=== PATIENT | male | born 1970 | race Hispanic/Latino ===

== ENCOUNTER 2017-10-26 16:58 | Emergency (ER) | payer OTHER ==
[~2017-10-26 16:58] MED LIST: AEC81 PO; ATEN50TA PO; FERR324T4 PO; FURO20TA4 PO; GABA300S PO; HUM10VIA6 SQ; ISOS30TA6 PO; LISI-617 PO; NITR0.4T SL; PANT40TA25 PO; PRAV20TA4 PO; SERT50TA PO; TERA2CAP4 PO; VITA-73 PO
== END 2017-10-26 18:25 | disposition home or self-care (01) ==
LOC: EDH 16:58
DX: Z48.01 Encounter for change or removal of surgical wound dressing (principal); M79.674 Pain in right toe(s); E11.9 Type 2 diabetes mellitus without complications; E78.5 Hyperlipidemia, unspecified; I10 Essential (primary) hypertension; Z98.62 Peripheral vascular angioplasty status; Z89.421 Acquired absence of other right toe(s)
CPT/HCPCS: 99281

== ENCOUNTER 2017-12-15 18:09 | Emergency (ER) | payer OTHER ==
[2017-12-15 19:17] LABS: BASOPHILS % (AUTO) 0.8 % (0.0-5.0); EOSINOPHILS % (AUTO) 2.9 % (0.0-8.0); HEMATOCRIT 37.1 % (42-54); LYMPHOCYTES % (AUTO) 25.6 % (21.0-51.0); MEAN CORPUSCULAR HEMOGLOBIN 30.8 pg (27.0-33.0); MEAN CORPUSCULAR HGB CONC 36.1 g/dL (32.0-36.0); MEAN CORPUSCULAR VOLUME 85.3 fL (79-99); MONOCYTES % (AUTO) 9.2 % (3.0-13.0); NEUTROPHILS % (AUTO) 61.5 % (40.0-77.0); NUCLEATED RED BLOOD CELLS 0.1 % (0.0-0.19); PLATELET COUNT (AUTO) 167 K/uL (130-400); RED BLOOD CELL COUNT(AUTO) 4.36 MIL/uL (4.50-6.20); RED CELL DISTRIBUTION WIDTH 14.6 % (11.0-15.5)
[2017-12-15 19:32] LABS: CARBON DIOXIDE 31 mmol/L (21-32); CHLORIDE 97 mmol/L (101-111); GLOMERULAR FILTR. RATE CALC 84 mL/min (>60); POTASSIUM 4.2 mmol/L (3.5-5.1); SODIUM SERUM 135 mmol/L (136-145); UREA NITROGEN, BLOOD 18 mg/dL (7-18)
[2017-12-15 19:34] LABS: CRP QUANTITATIVE < 2.00 mg/L (0.00-9.0); GLUCOSE,RANDOM 445 mg/dL (70-105)
[2017-12-15] MEDS ORDERED: SODIUM CHLORIDE 0.9% 1000ML 1,000 ML IV ONE (19:45)
[2017-12-15 20:25] LABS: ERYTHROCYTE SEDIMENTATION RATE 24 MM/HR (0-15)
== END 2017-12-15 20:55 | disposition home or self-care (01) ==
LOC: EDH 18:09
DX: E11.622 Type 2 diabetes mellitus with other skin ulcer (principal); L97.519 Non-pressure chronic ulcer of other part of right foot with unspecified severity; E78.5 Hyperlipidemia, unspecified; I10 Essential (primary) hypertension; F32.9 Major depressive disorder, single episode, unspecified; Z98.890 Other specified postprocedural states
CPT/HCPCS: 36415; 73630; 80048; 83605; 85025; 85651; 86141; 96360; 99285; J7030

== ENCOUNTER 2018-11-17 10:29 | Inpatient (IN) | payer OTHER ==
[~2018-11-17] VITALS: Ht 172.7 cm; Wt 118.5 kg
[2018-11-17] MEDS ORDERED: SODIUM CHLORIDE 0.9% 1000ML 1,000 ML IV ONE (11:14)
[2018-11-17 11:29] LABS: BASOPHILS % (AUTO) 0.7 % (0.0-5.0); HEMATOCRIT 39.6 % (42-54); LYMPHOCYTES % (AUTO) 20.5 % (21.0-51.0); MEAN CORPUSCULAR HEMOGLOBIN 30.9 pg (27.0-33.0); MEAN CORPUSCULAR HGB CONC 35.2 g/dL (32.0-36.0); MEAN CORPUSCULAR VOLUME 87.7 fL (79-99); MONOCYTES % (AUTO) 9.6 % (3.0-13.0); NEUTROPHILS % (AUTO) 67.2 % (40.0-77.0); PLATELET COUNT (AUTO) 141 K/uL (130-400); RED BLOOD CELL COUNT(AUTO) 4.51 MIL/uL (4.50-6.20); RED CELL DISTRIBUTION WIDTH 14.4 % (11.0-15.5); WHITE BLOOD COUNT (AUTO) 5.8 K/uL (4.8-10.8)
[2018-11-17 11:43] LABS: INR 0.89 (0.85-1.15); PARTIAL THROMBOPLASTIN TIME 26.1 SEC (26.3-35.5); PROTHROMBIN TIME 9.4 SEC (9.6-11.6)
[2018-11-17 11:47] LABS: ALBUMIN 3.5 g/dL (3.5-5.0); BILIRUBIN,TOTAL 0.4 mg/dL (0.2-1.0); CREATININE 0.9 mg/dL (0.5-1.5); POTASSIUM 4.1 mmol/L (3.5-5.1); TOTAL PROTEIN, SERUM 7.2 g/dL (6.0-8.3)
[2018-11-17 11:50] LABS: APPEARANCE,URINE Clear (CLEAR); BILIRUBIN,URINE Negative (NEGATIVE); COLOR,URINE Yellow (YELLOW); GLUCOSE, URINE (UA) >=1000 mg/dL (NEGATIVE); KETONES,URINE Trace mg/dL (NEGATIVE); LEUKOCYTE ESTERASE ,URINE Negative (NEGATIVE); NITRATE,URINE Negative (NEGATIVE); OCCULT BLOOD,URINE Negative (NEGATIVE); PROTEIN,URINE Trace (NEGATIVE); UROBILINOGEN,URINE 0.2 mg/dL (0.2-1.0)
[2018-11-17 11:57] LABS: AMPHET/METH SCREEN,URINE NEGATIVE (NEGATIVE); BARBITURATE SCREEN, URINE NEGATIVE (NEGATIVE); BENZODIAZEPINES SCREEN,URINE NEGATIVE (NEGATIVE); CANNABINOID SCREEN,URINE NEGATIVE (NEGATIVE); COCAINE SCREEN,URINE NEGATIVE (NEGATIVE); OPIATE SCREEN,URINE NEGATIVE (NEGATIVE); PHENCYCLIDINE SCREEN,URINE NEGATIVE (NEGATIVE)
[2018-11-17 12:04] LABS: BACTERIA,URINE None Seen /HPF (None Seen); RBC,URINE None Seen /HPF (0-1); SQUAMOUS EPITHELIAL CELL,UR Rare /HPF (0-2); WBC,URINE None Seen /HPF (0-1)
[2018-11-17] MEDS ORDERED: ASPIRIN 325 MG TABLET ONE (12:07)
[2018-11-17] MEDS ORDERED: INSULIN HUMULIN R 100 UNIT/ML 3ML ONE (12:08)
[2018-11-17] MEDS ORDERED: GLUCAGON 1MG KIT 1 MG ML IM PRN (13:15)
[2018-11-17] MEDS ORDERED: DEXTROSE 50%-WATER 50 ML DISP.SYRIN IV PRN (13:15)
[2018-11-17] MEDS ORDERED: IOHEXOL-350 75 ML VIAL IV ONE (13:47)
[2018-11-17 14:29] VITALS: BP 143/95
--- NOTE | 2018-11-17 14:30 | NUR ---
ADMISSION RECEIVED PT FROM ER, A&OX3, CALM COOPERATIVE AND DOES NOT APPEAR TO BE IN ANY DISTRESS NOR ANY NEURO DEFICITS PRESENT. PT DENIES PAIN, SOB, NAUSEA. PT IS AMBULATORY, GAIT STEADY AND STRONG WITH STAND BY ASSIST. PT IS ABLE TO TOLERATE FOOD AND FLUIDS WITH NO THROAT CLEARING OR COUGH. CASHIER RECEPTIONIST STRENGTH AND ROM TO ALL EXTREMITIES INTACT. CALL LIGHT WITHIN REACH.
[2018-11-17] MEDS ORDERED: HUM10VIA6 SQ ×2 (14:40)
[2018-11-17] MEDS ORDERED: HYDR12.54 PO (14:40)
[2018-11-17] MEDS ORDERED: CLOP75TA32 PO (14:40)
[2018-11-17] MEDS ORDERED: ZINC50TA64 PO (14:40)
[2018-11-17] MEDS ORDERED: METF-446 PO (14:40)
[2018-11-17] MEDS ORDERED: PREG75 PO (14:40)
[2018-11-17 16:00] VITALS: BP 132/89
[2018-11-17] MEDS: INSULIN R PO SS1 SQ SCH ×2 (16:16→21:54)
--- NOTE | 2018-11-17 16:45 | NUR ---
RECEIVED REPORT FROM CELESTE OSUNA, AND RECEIVED PATIENT IN RM 221; NO COMPLAINTS FROM PATIENT AT THIS TIME; AAOX4, ABLE TO MOVE ALL EXTREMITIES, LAYING COMFORTABLY IN BED AT THIS TIME
[2018-11-17 19:00] VITALS: BP 133/89
[2018-11-17] MEDS: FAMOTIDINE/PF 20 MG/2 ML VIAL IV SCH (20:22)
[2018-11-17 23:00] VITALS: BP 135/84
[2018-11-18] VITALS (7 sets, daily range): BP systolic 112–149; BP diastolic 77–100
[2018-11-18 04:06] LABS: HEMATOCRIT 36.4 % (42-54); MEAN CORPUSCULAR HEMOGLOBIN 30.7 pg (27.0-33.0); MEAN CORPUSCULAR HGB CONC 35.3 g/dL (32.0-36.0); MEAN CORPUSCULAR VOLUME 87.1 fL (79-99); PLATELET COUNT (AUTO) 159 K/uL (130-400); RED BLOOD CELL COUNT(AUTO) 4.18 MIL/uL (4.50-6.20); RED CELL DISTRIBUTION WIDTH 14.7 % (11.0-15.5); WHITE BLOOD COUNT (AUTO) 5.8 K/uL (4.8-10.8)
[2018-11-18 04:29] LABS: BAND NEUTROPHILS % (MANUAL) 1 % (0-2); EOSINOPHILS % (MANUAL) 4 % (1-6); LYMPHOCYTES % (MANUAL) 46 % (22-44); MONOCYTES % (MANUAL) 5 % (2-9); SEGMENTED NEUTROPHILS % 44 % (40-70)
[2018-11-18 04:30] LABS: CREATININE 0.7 mg/dL (0.5-1.5); MAGNESIUM 1.7 mg/dL (1.80-2.40); MAN.DIFF COMMENT-IMPRESSION MANUAL DIFFERENTIAL; POTASSIUM 3.5 mmol/L (3.5-5.1); THYROID STIMULATING HORMONE 3.44 uIU/mL (0.36-3.74)
[2018-11-18 04:31] LABS: PLATELET MORPHOLOGY COMMENT ADEQUATE
[2018-11-18] MEDS: INSULIN R PO SS1 SQ SCH ×4 (06:15→21:48)
[2018-11-18] MEDS: ASPIRIN 81MG TAB.CHEW PO SCH (09:25)
[2018-11-18] MEDS: FAMOTIDINE/PF 20 MG/2 ML VIAL IV SCH ×2 (09:26→21:19)
[2018-11-18] MEDS: ENOXAPARIN SODIUM 40 MG/0.4 ML SYRINGE SQ SCH (09:26)
[2018-11-18] MEDS ORDERED: DIAZEPAM 5 MG TABLET PO SCH (12:15)
--- NOTE | 2018-11-18 13:51 | NUR ---
DC PLAN PATIENT LIVES WITH SISTERS. PATIENT INDEPENDENT ABLE TO PERFORM ADL'S. PATIENT HAS NO SERVICES OR DME'S. FEELS SAFE TO RETURN HOME. Addendum: 11/18/18 at 1354 by MIGUE DAY RN CM Amended: Links added.
[2018-11-18] MEDS ORDERED: NITROGLYCERIN 0.4 MG SL TAB SL PRN (15:30)
[2018-11-18] MEDS: METFORMIN HCL 500 MG TABLET PO SCH (17:22)
[2018-11-18] MEDS ORDERED: ATORVASTATIN CALCIUM 10 MG TABLET PO SCH (21:00)
[2018-11-18] MEDS: INSULIN GLARGINE 100 UNITS/ML 10 ML VIAL SQ SCH (21:47)
[2018-11-19 03:46] VITALS: BP 133/88
[2018-11-19 04:15] LABS: HEMATOCRIT 35.9 % (42-54); MEAN CORPUSCULAR HEMOGLOBIN 30.8 pg (27.0-33.0); MEAN CORPUSCULAR HGB CONC 35.3 g/dL (32.0-36.0); MEAN CORPUSCULAR VOLUME 87.3 fL (79-99); NUCLEATED RED BLOOD CELLS 0.1 % (0.0-0.19); PLATELET COUNT (AUTO) 143 K/uL (130-400); RED BLOOD CELL COUNT(AUTO) 4.11 MIL/uL (4.50-6.20); RED CELL DISTRIBUTION WIDTH 14.1 % (11.0-15.5); WHITE BLOOD COUNT (AUTO) 4.7 K/uL (4.8-10.8)
[2018-11-19 04:25] LABS: CREATININE 0.7 mg/dL (0.5-1.5); MAGNESIUM 1.5 mg/dL (1.80-2.40); PHOSPHORUS 3.1 mg/dL (2.5-4.9); POTASSIUM 3.7 mmol/L (3.5-5.1)
[2018-11-19] MEDS ORDERED: MAGNESIUM 2GM PREMIX 50ML 50 ML IV SCH (06:15)
[2018-11-19 07:00] VITALS: BP 141/92
[2018-11-19] MEDS: INSULIN R PO SS1 SQ SCH ×4 (07:09→20:55)
[2018-11-19] MEDS: METFORMIN HCL 500 MG TABLET PO SCH ×2 (08:36→17:00)
[2018-11-19] MEDS: ASPIRIN 81 MG EC TAB PO SCH (09:00)
[2018-11-19] MEDS: ZINC AMINO ACID CHELATE PO SCH (09:00)
[2018-11-19] MEDS: PREGABALIN 75 MG CAPSULE PO SCH (09:46)
[2018-11-19] MEDS: FERROUS SULFATE 325 MG TABLET.DR PO SCH (09:46)
[2018-11-19] MEDS: ASPIRIN 81MG TAB.CHEW PO SCH (09:46)
[2018-11-19] MEDS: SERTRALINE HCL 50 MG TABLET PO SCH (09:46)
[2018-11-19] MEDS: FAMOTIDINE/PF 20 MG/2 ML VIAL IV SCH ×2 (09:46→20:46)
[2018-11-19] MEDS: ISOSORBIDE MONO 30MG TAB SR PO SCH (09:46)
[2018-11-19] MEDS: PANTOPRAZOLE SODIUM 40 MG TABLET.DR PO SCH (09:46)
[2018-11-19] MEDS: HYDROCHLOROTHIAZIDE 25 MG TABLET PO SCH (09:46)
[2018-11-19] MEDS: CLOPIDOGREL BISULFATE 75 MG TAB PO SCH (09:46)
[2018-11-19] MEDS: ENOXAPARIN SODIUM 40 MG/0.4 ML SYRINGE SQ SCH (09:47)
[2018-11-19 11:00] VITALS: BP 142/93
[2018-11-19 16:00] VITALS: BP 128/77
[2018-11-19] MEDS: GLIPIZIDE 5 MG TABLET PO SCH (17:06)
--- NOTE | 2018-11-19 17:09 | NUR ---
HOLD METFORMIN METFORMIN HELD DUE TO PATIENT HAVING CT WITH CONTRAST EARLIER.
[2018-11-19 20:00] VITALS: BP 116/79
[2018-11-19] MEDS: INSULIN GLARGINE 100 UNITS/ML 10 ML VIAL SQ SCH (20:52)
[2018-11-19] MEDS ORDERED: ATORVASTATIN CALCIUM 20 MG TABLET PO SCH (21:00)
[2018-11-19] MEDS ORDERED: ACETAMINOPHEN 325 MG TAB PO PRN (21:00)
[2018-11-20] VITALS: BP 136/92
--- NOTE | 2018-11-20 03:13 | NUR ---
NEURO STATUS Neuro status remains the same,no deficits noted.
[2018-11-20 04:00] VITALS: BP 123/86
[2018-11-20] MEDS: INSULIN R PO SS1 SQ SCH ×2 (06:17→13:03)
[2018-11-20] MEDS: GLIPIZIDE 5 MG TABLET PO SCH (06:35)
[2018-11-20] MEDS: ZINC AMINO ACID CHELATE PO SCH (07:45)
[2018-11-20] MEDS: CLOPIDOGREL BISULFATE 75 MG TAB PO SCH (07:58)
[2018-11-20] MEDS: FAMOTIDINE/PF 20 MG/2 ML VIAL IV SCH (07:58)
[2018-11-20] MEDS: ISOSORBIDE MONO 30MG TAB SR PO SCH (07:58)
[2018-11-20 07:59] VITALS: BP 134/90
[2018-11-20] MEDS: PANTOPRAZOLE SODIUM 40 MG TABLET.DR PO SCH (07:59)
[2018-11-20] MEDS: FERROUS SULFATE 325 MG TABLET.DR PO SCH (07:59)
[2018-11-20] MEDS: METFORMIN HCL 500 MG TABLET PO SCH (07:59)
[2018-11-20] MEDS: HYDROCHLOROTHIAZIDE 25 MG TABLET PO SCH (07:59)
[2018-11-20] MEDS: SERTRALINE HCL 50 MG TABLET PO SCH (07:59)
[2018-11-20] MEDS: PREGABALIN 75 MG CAPSULE PO SCH (07:59)
[2018-11-20] MEDS: ASPIRIN 81 MG EC TAB PO SCH (07:59)
[2018-11-20] MEDS: ENOXAPARIN SODIUM 40 MG/0.4 ML SYRINGE SQ SCH (08:00)
[2018-11-20 08:11] LABS: BASOPHILS % (AUTO) 0.7 % (0.0-5.0); EOSINOPHILS % (AUTO) 3.6 % (0.0-8.0); HEMATOCRIT 41.1 % (42-54); LYMPHOCYTES % (AUTO) 28.4 % (21.0-51.0); MEAN CORPUSCULAR HEMOGLOBIN 30.1 pg (27.0-33.0); MEAN CORPUSCULAR HGB CONC 33.8 g/dL (32.0-36.0); MONOCYTES % (AUTO) 8.5 % (3.0-13.0); NEUTROPHILS % (AUTO) 58.8 % (40.0-77.0); PLATELET COUNT (AUTO) 164 K/uL (130-400); RED BLOOD CELL COUNT(AUTO) 4.62 MIL/uL (4.50-6.20); RED CELL DISTRIBUTION WIDTH 14.5 % (11.0-15.5); WHITE BLOOD COUNT (AUTO) 5.3 K/uL (4.8-10.8)
[2018-11-20 08:17] LABS: CREATININE 0.7 mg/dL (0.5-1.5); POTASSIUM 4.1 mmol/L (3.5-5.1)
[2018-11-20 11:53] VITALS: BP 160/90
== END 2018-11-20 14:30 | disposition home or self-care (01) | DRG 65 ==
LOC: EDH 10:29 → EDHIP 10:30 → 2BH 14:15 → 2DH 16:32 → 3BH 11-19 15:54
PROVIDERS: ADMIT Family Medicine; ATTEND Family Medicine
DX: I63.9 Cerebral infarction, unspecified (principal); G81.94 Hemiplegia, unspecified affecting left nondominant side; G45.9 Transient cerebral ischemic attack, unspecified; E11.65 Type 2 diabetes mellitus with hyperglycemia; I25.10 Atherosclerotic heart disease of native coronary artery without angina pectoris; I10 Essential (primary) hypertension; E03.9 Hypothyroidism, unspecified; E78.2 Mixed hyperlipidemia; E83.42 Hypomagnesemia; F32.9 Major depressive disorder, single episode, unspecified; F40.240 Claustrophobia; M54.12 Radiculopathy, cervical region; Z86.73 Personal history of transient ischemic attack (TIA), and cerebral infarction without residual deficits; Z83.3 Family history of diabetes mellitus; Z82.49 Family history of ischemic heart disease and other diseases of the circulatory system; Z80.0 Family history of malignant neoplasm of digestive organs; Z89.421 Acquired absence of other right toe(s); E66.01 Morbid (severe) obesity due to excess calories; Z68.39 Body mass index [BMI] 39.0-39.9, adult
CPT/HCPCS: 36415; 70450; 70496; 70498; 71045; 72125; 80048; 80053; 80061; 80305; 81001; 82550; 82948; 83036; 83735; 84100; 84443; 84484; 85025; 85027; 85610; 85730; 93005; 93306; 99291; G0378; J1650; J1815; J3475; J3490; J7030; Q9967

== ENCOUNTER 2019-06-17 10:05 | Inpatient (IN) | payer SELFPAY ==
[~2019-06-17] VITALS: Ht 172.7 cm; Wt 110.1 kg
[~2019-06-17 10:05] MED LIST changes: -ATEN50TA PO; +CLOP75TA32 PO; -FURO20TA4 PO; -GABA300S PO; +HYDR12.54 PO; -LISI-617 PO; +METF-446 PO; +PREG75 PO; -TERA2CAP4 PO; -VITA-73 PO; +ZINC50TA64 PO
[2019-06-17 10:28] LABS: BASOPHILS % (AUTO) 0.6 % (0.0-5.0); EOSINOPHILS % (AUTO) 2.7 % (0.0-8.0); HEMATOCRIT 39.7 % (42-54); LYMPHOCYTES % (AUTO) 18.5 % (21.0-51.0); MEAN CORPUSCULAR HEMOGLOBIN 31.1 pg (27.0-33.0); MEAN CORPUSCULAR HGB CONC 34.2 g/dL (32.0-36.0); MEAN CORPUSCULAR VOLUME 90.9 fL (79-99); MONOCYTES % (AUTO) 8.3 % (3.0-13.0); NEUTROPHILS % (AUTO) 69.9 % (40.0-77.0); NUCLEATED RED BLOOD CELLS 0.1 % (0.0-0.19); PLATELET COUNT (AUTO) 146 K/uL (130-400); RED BLOOD CELL COUNT(AUTO) 4.36 MIL/uL (4.50-6.20); RED CELL DISTRIBUTION WIDTH 13.9 % (11.0-15.5); WHITE BLOOD COUNT (AUTO) 5.4 K/uL (4.8-10.8)
[2019-06-17 10:33] LABS: POTASSIUM 4.4 mmol/L (3.5-5.1)
[2019-06-17 10:34] LABS: ALBUMIN 3.4 g/dL (3.5-5.0); BILIRUBIN,TOTAL 0.4 mg/dL (0.2-1.0)
[2019-06-17 10:37] LABS: INR 0.91 (0.85-1.15); PARTIAL THROMBOPLASTIN TIME 25.6 SEC (26.3-35.5); PROTHROMBIN TIME 9.6 SEC (9.6-11.6)
[2019-06-17] MEDS ORDERED: ASPIRIN 325 MG TABLET ONE (10:39)
[2019-06-17] MEDS ORDERED: SODIUM CHLORIDE 0.9% 1000ML 1,000 ML IV ONE ×2 (10:58→13:36)
[2019-06-17] MEDS ORDERED: INSULIN HUMULIN R 100 UNIT/ML 3ML ONE (10:58)
[2019-06-17 11:14] LABS: B-TYPE NATRIURETIC PEPTIDE 52 pg/mL (0-100)
[2019-06-17] MEDS: SODIUM CHLORIDE 0.9% 1000ML 1,000 ML IV SCH (12:19)
[2019-06-17] MEDS ORDERED: ACETAMINOPHEN 325 MG TAB PO PRN (12:30)
[2019-06-17] MEDS ORDERED: MORPHINE SULFATE 2 MG/ML 1ML SYG IV PRN (12:30)
[2019-06-17] MEDS: NITROGLYCERIN 1GM/1 INCH PACKET TD SCH ×2 (12:30→20:06)
[2019-06-17] MEDS ORDERED: NITROGLYCERIN 0.4 MG SL TAB SL PRN (12:30)
[2019-06-17 13:04] LABS: HEMOGLOBIN A1C 11.7 % (4.0-6.0)
[2019-06-17 13:14] LABS: CREATINE KINASE, TOTAL 59 U/L (21-232); MYOGLOBIN 22 ng/mL (10-92); TROPONIN I < 0.04 ng/mL (0.00-0.06)
[2019-06-17] MEDS ORDERED: NITROGLYCERIN 1GM/1 INCH PACKET TD ONE (13:34)
[2019-06-17] MEDS ORDERED: ENOXAPARIN SODIUM 40 MG/0.4 ML SYRINGE SQ ONE (13:34)
[2019-06-17] MEDS ORDERED: METOPROLOL TARTRATE 25 MG TAB ONE (13:34)
--- NOTE | 2019-06-17 15:00 | NUR ---
ARRIVAL TO FLOOR PT IS AAOX4 DENIES CP DENIES SOB DENIES NV NO COMPLAINTS. ARRIVED WITH ORDERS. TELE PACK APPLIED TO PATIENT. CALL LIGHT WITHIN REACH.
[2019-06-17 15:04] VITALS: BP 139/78
[2019-06-17] MEDS ORDERED: GABA-531 PO (15:09)
[2019-06-17] MEDS ORDERED: IRON SLOW RELEASE PO (15:09)
[2019-06-17] MEDS ORDERED: ISOS30TA6 PO (15:09)
[2019-06-17] MEDS ORDERED: CHOL200013 PO (15:09)
[2019-06-17] MEDS ORDERED: SITA1TAB6 PO (15:09)
[2019-06-17] MEDS ORDERED: PRAV20TA4 PO (15:09)
[2019-06-17] MEDS ORDERED: TERA2CAP4 PO (15:09)
[2019-06-17] MEDS ORDERED: LEVO75TA10 PO (15:09)
[2019-06-17] MEDS ORDERED: ASPI-1197 PO (15:09)
[2019-06-17] MEDS ORDERED: CLOP75TA32 PO (15:09)
[2019-06-17] MEDS ORDERED: ZINC50TA71 PO (15:09)
[2019-06-17] MEDS ORDERED: NITR0.4T SL (15:09)
[2019-06-17] MEDS ORDERED: GLIM2TAB3 PO (15:09)
[2019-06-17] MEDS ORDERED: LISI-617 PO (15:09)
[2019-06-17] MEDS ORDERED: PANT40TA25 PO (15:09)
[2019-06-17] MEDS ORDERED: SERT50TA12 PO (15:09)
[2019-06-17] MEDS: INSULIN LISPRO 100 UNIT/ML 3ML SQ SCH (16:12)
[2019-06-17] MEDS: FAMOTIDINE/PF 20 MG/2 ML VIAL IV SCH (19:56)
[2019-06-17] MEDS: METOPROLOL TARTRATE 25 MG TAB PO SCH (19:56)
[2019-06-17] MEDS: ATORVASTATIN CALCIUM 40 MG TABLET PO SCH (19:56)
[2019-06-17] MEDS: ACETAMINOPHEN 325 MG TAB PO PRN (19:57)
[2019-06-17 20:03] VITALS: BP 167/108
[2019-06-17] MEDS: INSULIN GLARGINE 100 UNITS/ML 10 ML VIAL SQ SCH (20:05)
[2019-06-17 21:09] LABS: CREATINE KINASE, TOTAL 51 U/L (21-232); MYOGLOBIN 25 ng/mL (10-92); TROPONIN I < 0.04 ng/mL (0.00-0.06)
[2019-06-18] VITALS (7 sets, daily range): BP systolic 142–160; BP diastolic 61–101
[2019-06-18] MEDS: ACETAMINOPHEN 325 MG TAB PO PRN (00:58)
[2019-06-18] MEDS: SODIUM CHLORIDE 0.9% 1000ML 1,000 ML IV SCH ×2 (00:59→12:13)
[2019-06-18] MEDS: NITROGLYCERIN 1GM/1 INCH PACKET TD SCH ×2 (04:30→12:30)
[2019-06-18 04:55] LABS: CHOLESTEROL 173 mg/dL (<200); CREATINE KINASE, TOTAL 48 U/L (21-232); HDL CHOLESTEROL 48 mg/dL (29-71); LDL DIRECT 111 mg/dL (0-99); MYOGLOBIN 20 ng/mL (10-92); TRIGLYCERIDES 112 mg/dL (30-200); TROPONIN I < 0.04 ng/mL (0.00-0.06)
[2019-06-18] MEDS: INSULIN LISPRO 100 UNIT/ML 3ML SQ SCH ×4 (06:41→20:50)
--- NOTE | 2019-06-18 06:53 | NUR ---
Patient denies chest pain or sob Refused nitro paste.
[2019-06-18] MEDS: ASPIRIN 325 MG TABLET PO SCH (09:20)
[2019-06-18] MEDS: FAMOTIDINE/PF 20 MG/2 ML VIAL IV SCH ×2 (09:21→20:54)
[2019-06-18] MEDS: METOPROLOL TARTRATE 25 MG TAB PO SCH ×2 (09:21→20:51)
[2019-06-18] MEDS: ENOXAPARIN SODIUM 40 MG/0.4 ML SYRINGE SQ SCH (09:22)
--- NOTE | 2019-06-18 14:36 | NUR ---
DCP: HOME met with pt who is unemployed, applying for SSD, lives his sister Kaitlin Aparicio [phone]. Pt reports he drives, is independent, uses cane, no in home care services. Pt seen at [facility] for care and med assist. Denies dc needs, plan is home with family. CM to follow up and assist as needed Addendum: 06/18/19 at 1438 by TONYA ARTHUR Amended: Links added.
[2019-06-18] MEDS: METFORMIN HCL 500 MG TABLET PO SCH (16:58)
[2019-06-18] MEDS: GLIPIZIDE 5 MG TABLET PO SCH (16:58)
[2019-06-18] MEDS: LISINOPRIL 5 MG TABLET PO SCH (16:58)
--- NOTE | 2019-06-18 17:20 | NUR ---
REPORT TO CELESTE FLETCHER.
--- NOTE | 2019-06-18 17:45 | NUR ---
TRANSFERRED TO ROOM 410 WITH BELONGINGS VIA W/C; ACCOMPANIED BY Kareem MANLEY PCP.
[2019-06-18] MEDS: INSULIN GLARGINE 100 UNITS/ML 10 ML VIAL SQ SCH (20:49)
[2019-06-18] MEDS: ATORVASTATIN CALCIUM 40 MG TABLET PO SCH (20:53)
[2019-06-19 03:32] VITALS: BP 140/91
[2019-06-19] MEDS: INSULIN LISPRO 100 UNIT/ML 3ML SQ SCH ×4 (05:45→21:31)
[2019-06-19] MEDS: GLIPIZIDE 5 MG TABLET PO SCH ×2 (07:29→17:16)
[2019-06-19] MEDS: METFORMIN HCL 500 MG TABLET PO SCH ×3 (07:29→17:13)
[2019-06-19 08:00] VITALS: BP_SYST 145; BP_SYST 148; BP_DIAS 91; BP_DIAS 94
[2019-06-19] MEDS: LISINOPRIL 5 MG TABLET PO SCH (09:43)
[2019-06-19] MEDS: ENOXAPARIN SODIUM 40 MG/0.4 ML SYRINGE SQ SCH (09:43)
[2019-06-19] MEDS: METOPROLOL TARTRATE 25 MG TAB PO SCH ×2 (09:43→21:32)
[2019-06-19] MEDS: ASPIRIN 325 MG TABLET PO SCH (09:43)
[2019-06-19] MEDS: FAMOTIDINE/PF 20 MG/2 ML VIAL IV SCH ×2 (09:48→21:32)
[2019-06-19 11:54] VITALS: BP 147/93
[2019-06-19 16:00] VITALS: BP 145/86
--- NOTE | 2019-06-19 16:15 | NUR ---
RD NOTIFICATION PRIMARY DIAGNOSIS: CHEST PAIN R/O ACS, UNCONTROLLED DM. HX: DM, HTN, HYPERLIPIDEMIA, CAD, LIVER ABSCESS, GALL BLADDER INFECTION, THYROID DISORDER, DEPRESSION. BMI IS 36.9; CLASSIFIED OBESE. CURRENT DIET: 75GM CCD. PO INTAKE 50% PER PT. APPETITE IS STEADY PER PT. LBM: 06/19. MEDS: NITROSTAT, LOPRESSOR, ASPRIN, LOVENOX, PEPCID, LANTUS, LIPITOR, HUMALOG, GLUCTROL, PRINIVIL, GLUCOPHAGE. LABS: BG 220, A1C 11.7, EAG 289, ALB 3.4, LDL 111, HGB 13.6, HCT 39.7. PT HAS RECEIVED DIABETIC EDU IN THE PAST AND IS OPEN TO RECEIVING MORE INFOTMATION TODAY REGARDING HIS DIET. RD RECOMMENDS TO CONTINUE CURRENT DIET. ADD HEART HEALTHY TO DIET ORDER. RD PROVIDED DIABETES AND HEART HEALTHY NUTRITION AND DIET EDUCATION. PT WAS EAGER TO LEARN, ASKED QUESTIONS. RD ANSWERED AND PT VERBALIZED UNDERSTANDING. RD WILL CONTINUE TO MONITOR AND FOLLOW UP NEEDED. PLEASE NOTIFY RD IF ANY OTHER NUTRITIONAL CONCERNS ARISE. THANK YOU. Addendum: 06/19/19 at [address] RD Amended: Links added.
--- NOTE | 2019-06-19 16:17 | NUR ---
DIET EDUCATION RD PROVIDED DIABETES AND HEART HEALTHY NUTRITION AND DIET EDUCATION. PT WAS EAGER TO LEARN, ASKED QUESTIONS. RD ANSWERED AND PT VERBALIZED UNDERSTANDING. RD WILL CONTINUE TO MONITOR AND FOLLOW UP NEEDED. PLEASE NOTIFY RD IF ANY OTHER NUTRITIONAL CONCERNS ARISE. THANK YOU. Addendum: 06/19/19 at [address] RD Amended: Links added.
[2019-06-19 20:00] VITALS: BP 154/105
[2019-06-19] MEDS: INSULIN GLARGINE 100 UNITS/ML 10 ML VIAL SQ SCH (21:30)
[2019-06-19] MEDS: ATORVASTATIN CALCIUM 40 MG TABLET PO SCH (21:32)
[2019-06-19 23:39] VITALS: BP 130/80
[2019-06-20 04:00] VITALS: BP 123/77
[2019-06-20 04:42] LABS: HEMATOCRIT 37.1 % (42-54); MEAN CORPUSCULAR HEMOGLOBIN 31.3 pg (27.0-33.0); MEAN CORPUSCULAR HGB CONC 35.4 g/dL (32.0-36.0); MEAN CORPUSCULAR VOLUME 88.5 fL (79-99); NUCLEATED RED BLOOD CELLS 0.1 % (0.0-0.19); PLATELET COUNT (AUTO) 157 K/uL (130-400); RED BLOOD CELL COUNT(AUTO) 4.19 MIL/uL (4.50-6.20); RED CELL DISTRIBUTION WIDTH 13.8 % (11.0-15.5); WHITE BLOOD COUNT (AUTO) 5.2 K/uL (4.8-10.8)
[2019-06-20 05:06] LABS: CREATININE 0.7 mg/dL (0.5-1.5); POTASSIUM 3.8 mmol/L (3.5-5.1)
[2019-06-20 05:25] LABS: EOSINOPHILS % (MANUAL) 6 % (1-6); LYMPHOCYTES % (MANUAL) 36 % (22-44); MAN.DIFF COMMENT-IMPRESSION MANUAL DIFFERENTIAL; MONOCYTES % (MANUAL) 8 % (2-9); SEGMENTED NEUTROPHILS % 50 % (40-70)
[2019-06-20 05:26] LABS: PLATELET MORPHOLOGY COMMENT ADEQUATE
[2019-06-20] MEDS: INSULIN LISPRO 100 UNIT/ML 3ML SQ SCH (06:10)
[2019-06-20 08:00] VITALS: BP 132/88
[2019-06-20] MEDS: FAMOTIDINE/PF 20 MG/2 ML VIAL IV SCH (08:28)
[2019-06-20] MEDS: METFORMIN HCL 500 MG TABLET PO SCH (08:28)
[2019-06-20] MEDS: ENOXAPARIN SODIUM 40 MG/0.4 ML SYRINGE SQ SCH (08:28)
[2019-06-20] MEDS: ASPIRIN 325 MG TABLET PO SCH (08:28)
[2019-06-20] MEDS: GLIPIZIDE 5 MG TABLET PO SCH (08:29)
[2019-06-20] MEDS: METOPROLOL TARTRATE 25 MG TAB PO SCH (08:29)
[2019-06-20] MEDS: LISINOPRIL 5 MG TABLET PO SCH (08:29)
[2019-06-20] MEDS ORDERED: ASPI-1197 PO (10:05)
[2019-06-20] MEDS ORDERED: NITR0.4T SL (10:05)
[2019-06-20] MEDS ORDERED: LEVO75TA10 PO (10:05)
[2019-06-20] MEDS ORDERED: METF-444 PO (10:05)
[2019-06-20] MEDS ORDERED: LISI-617 PO (10:05)
[2019-06-20] MEDS ORDERED: GLIP10TA9 PO (10:05)
[2019-06-20] MEDS ORDERED: METO25 PO (10:05)
[2019-06-20] MEDS ORDERED: ATOR40TA69 PO (10:05)
[2019-06-20 11:53] VITALS: BP 142/86
== END 2019-06-20 13:30 | disposition home or self-care (01) | DRG 313 ==
LOC: EDH 10:05 → EDHIP 10:06 → 2AH 14:47 → 4BH 06-18 17:32
PROVIDERS: ADMIT Internal Medicine; ATTEND Internal Medicine
DX: R07.89 Other chest pain (principal); E11.9 Type 2 diabetes mellitus without complications; I25.10 Atherosclerotic heart disease of native coronary artery without angina pectoris; E78.5 Hyperlipidemia, unspecified; I10 Essential (primary) hypertension; F32.9 Major depressive disorder, single episode, unspecified; Z95.5 Presence of coronary angioplasty implant and graft; Z98.42 Cataract extraction status, left eye; Z98.41 Cataract extraction status, right eye; Z89.421 Acquired absence of other right toe(s); Z91.19 Patient's noncompliance with other medical treatment and regimen; Z91.11 Patient's noncompliance with dietary regimen; Z91.14 Patient's other noncompliance with medication regimen; Z83.3 Family history of diabetes mellitus; Z83.79 Family history of other diseases of the digestive system; Z82.49 Family history of ischemic heart disease and other diseases of the circulatory system
CPT/HCPCS: 36415; 71045; 80048; 80053; 80061; 82550; 82948; 83036; 83874; 83880; 84484; 85025; 85610; 85730; 93005; 93306; G0378; J1650; J1815; J3490; J7030

== ENCOUNTER 2019-11-27 20:53 | Emergency (ER) | payer SELFPAY ==
[~2019-11-27 20:53] MED LIST changes: -AEC81 PO; +ASPI-1197 PO; +ATOR40TA69 PO; +CHOL200013 PO; -CLOP75TA32 PO; -FERR324T4 PO; +GABA-531 PO; +GLIP10TA9 PO; -HUM10VIA6 SQ; -HYDR12.54 PO; -ISOS30TA6 PO; +LEVO75TA10 PO; +LISI-617 PO; +METF-444 PO; -METF-446 PO; +METO25 PO; -PANT40TA25 PO; -PRAV20TA4 PO; -PREG75 PO; -SERT50TA PO; +SERT50TA12 PO; -ZINC50TA64 PO
[2019-11-27] MEDS ORDERED: ASPIRIN 325 MG TABLET ONE (21:10)
[2019-11-27] MEDS ORDERED: DIAZEPAM 5 MG TABLET ONE (21:11)
[2019-11-27 21:21] LABS: BASOPHILS % (AUTO) 0.5 % (0.0-5.0); EOSINOPHILS % (AUTO) 2.3 % (0.0-8.0); HEMATOCRIT 38.1 % (42-54); MEAN CORPUSCULAR HEMOGLOBIN 29.9 pg (27.0-33.0); MEAN CORPUSCULAR HGB CONC 34.9 g/dL (32.0-36.0); MEAN CORPUSCULAR VOLUME 85.6 fL (79-99); PLATELET COUNT (AUTO) 149 K/uL (130-400); RED BLOOD CELL COUNT(AUTO) 4.45 MIL/uL (4.50-6.20); RED CELL DISTRIBUTION WIDTH 13.2 % (11.0-15.5); WHITE BLOOD COUNT (AUTO) 5.7 K/uL (4.8-10.8)
[2019-11-27 21:39] LABS: INR 0.87 (0.85-1.15); PARTIAL THROMBOPLASTIN TIME 25.9 SEC (26.3-35.5); PROTHROMBIN TIME 9.2 SEC (9.6-11.6)
[2019-11-27 21:40] LABS: ALBUMIN 3.2 g/dL (3.5-5.0); BILIRUBIN,TOTAL 0.4 mg/dL (0.2-1.0); CREATININE 0.8 mg/dL (0.5-1.5); POTASSIUM 3.7 mmol/L (3.5-5.1); TOTAL PROTEIN, SERUM 6.9 g/dL (6.0-8.3)
[2019-11-27] MEDS ORDERED: SODIUM CHLORIDE 0.9% 1000ML 1,000 ML IV ONE (22:37)
[2019-11-27] MEDS ORDERED: INSULIN HUMULIN R 100 UNIT/ML 3ML ONE (22:37)
== END 2019-11-27 23:17 | disposition home or self-care (01) ==
LOC: EDH 20:53
DX: R07.89 Other chest pain (principal); E11.65 Type 2 diabetes mellitus with hyperglycemia; R51 Headache; E78.5 Hyperlipidemia, unspecified; I10 Essential (primary) hypertension; Z98.890 Other specified postprocedural states
CPT/HCPCS: 36415; 70450; 71045; 80053; 82550; 83880; 84484; 85025; 85610; 85730; 93005; 96361; 96374; 99285; J1815; J7030

== ENCOUNTER → 2020-06-01 | Outpatient (CLI) | payer OTHER | END | disposition home or self-care (01) | LOC: OIH 11:03 | PROVIDERS: ATTEND Family Medicine | DX: R94.6 Abnormal results of thyroid function studies (principal); E11.22 Type 2 diabetes mellitus with diabetic chronic kidney disease; M47.814 Spondylosis without myelopathy or radiculopathy, thoracic region; Z95.5 Presence of coronary angioplasty implant and graft | CPT/HCPCS: 71046 ==

== ENCOUNTER 2020-09-04 08:10 | Inpatient (IN) | payer OTHER ==
[~2020-09-04] VITALS: Ht 172.7 cm; Wt 105.1 kg
[2020-09-04] MEDS ORDERED: ASPIRIN 325 MG TABLET ONE (08:23)
[2020-09-04] MEDS ORDERED: NITROGLYCERIN 1GM/1 INCH PACKET TD ONE (08:33)
[2020-09-04 08:37] LABS: BASOPHILS % (AUTO) 0.8 % (0.0-5.0); EOSINOPHILS % (AUTO) 2.2 % (0.0-8.0); HEMATOCRIT 38.7 % (42-54); LYMPHOCYTES % (AUTO) 24.2 % (21.0-51.0); MEAN CORPUSCULAR HEMOGLOBIN 30.1 pg (27.0-33.0); MEAN CORPUSCULAR HGB CONC 35.9 g/dL (32.0-36.0); MEAN CORPUSCULAR VOLUME 83.8 fL (79-99); MONOCYTES % (AUTO) 6.9 % (3.0-13.0); NEUTROPHILS % (AUTO) 65.7 % (40.0-77.0); PLATELET COUNT (AUTO) 156 K/uL (130-400); RED BLOOD CELL COUNT(AUTO) 4.62 MIL/uL (4.50-6.20); RED CELL DISTRIBUTION WIDTH 13.3 % (11.0-15.5); WHITE BLOOD COUNT (AUTO) 5.1 K/uL (4.8-10.8)
[2020-09-04 08:52] LABS: INR 0.88 (0.85-1.15); PARTIAL THROMBOPLASTIN TIME 21.9 SEC (26.3-35.5); PROTHROMBIN TIME 9.5 SEC (9.6-11.6)
[2020-09-04 09:08] LABS: ALBUMIN 3.3 g/dL (3.5-5.0); BILIRUBIN,TOTAL 0.4 mg/dL (0.2-1.0); CREATININE 0.7 mg/dL (0.5-1.5); POTASSIUM 4.3 mmol/L (3.5-5.1)
[2020-09-04] MEDS ORDERED: IOHEXOL-350 75 ML VIAL IV ONE (10:13)
[2020-09-04] MEDS ORDERED: LORAZEPAM 2 MG/ML 1 ML VIAL IVP SCH (13:00)
[2020-09-04] MEDS ORDERED: LORAZEPAM 2 MG/ML 1 ML VIAL ONE (13:07)
[2020-09-04] MEDS ORDERED: MORPHINE SULFATE 2 MG/ML 1ML SYG IV PRN (14:30)
[2020-09-04] MEDS ORDERED: NITROGLYCERIN 0.4 MG SL TAB SL PRN (14:30)
[2020-09-04] MEDS ORDERED: ACETAMINOPHEN 325 MG TAB PO PRN ×2 (14:30)
[2020-09-04 14:59] LABS: CHOLESTEROL 216 mg/dL (<200); HDL CHOLESTEROL 146 mg/dL (29-71); LDL DIRECT 130 mg/dL (0-99); TRIGLYCERIDES 155 mg/dL (30-200)
[2020-09-04] MEDS ORDERED: SODIUM CHLORIDE 0.9% 1000ML 1,000 ML IV ONE (15:30)
[2020-09-04 16:34] LABS: HEMOGLOBIN A1C 10.2 % (4.0-6.0)
[2020-09-04] MEDS ORDERED: ALTEPLASE 100 MG VIAL IVP ONE (16:34)
[2020-09-04] MEDS ORDERED: SODIUM CHLORIDE 0.9% 50 ML IV ONE (16:34)
[2020-09-04] MEDS ORDERED: ACETAMINOPHEN 325 MG TAB ONE (17:32)
--- NOTE | 2020-09-04 18:07 | NUR ---
ARRIVAL PT. ARRIVED TO ROOM 225 PER ED Addendum: 09/04/20 at 1847 by YURI CROWLEY RN RN WITH JACQUIE AND SETH. PT. AWAKE AND ALERT, NIH-1. PT. DENIES PAIN OR DISTRESS. WILL CONTINUE TO MONITOR.
[2020-09-04 19:00] VITALS: BP 93/58
[2020-09-04 20:00] VITALS: BP 108/60
--- NOTE | 2020-09-04 20:07 | NUR ---
Received report, pt. has med list will update. Pt. able to move all extremities without deficits. Has difficulty ambulating to BR but is nothing new according to pt. Pt. c/o no strength level deficits. Encouraged soft diet carb compliant diet (pt. found eating shelled sunflower seeds) No c/o pain.
[2020-09-04 21:00] VITALS: BP 117/70
[2020-09-04] MEDS ORDERED: ATORVASTATIN CALCIUM 40 MG TABLET PO SCH (21:00)
[2020-09-04] MEDS ORDERED: TERA2CAP4 PO (21:20)
[2020-09-04] MEDS ORDERED: LEVO75 PO (21:20)
[2020-09-04] MEDS ORDERED: ISOS30TA6 PO (21:20)
[2020-09-04] MEDS ORDERED: CLOP75TA32 PO (21:20)
[2020-09-04] MEDS ORDERED: EXEN10PE3 SQ (21:20)
[2020-09-04] MEDS ORDERED: METF-446 PO (21:20)
[2020-09-04] MEDS ORDERED: HYDR12.54 PO (21:20)
[2020-09-04 22:00] VITALS: BP 129/87
[2020-09-04 23:00] VITALS: BP 144/83
[2020-09-04] MEDS: FAMOTIDINE/PF 20 MG/2 ML VIAL IV SCH (23:30)
[2020-09-04] MEDS: ONDANSETRON HCL 4 MG/2 ML VIAL IV PRN (23:30)
[2020-09-05] VITALS (22 sets, daily range): BP systolic 103–157; BP diastolic 63–103
[2020-09-05] MEDS: SODIUM CHLORIDE 0.9% 1000ML 1,000 ML IV SCH ×5 (00:49→21:06)
[2020-09-05 04:29] LABS: BASOPHILS % (AUTO) 0.9 % (0.0-5.0); EOSINOPHILS % (AUTO) 2.4 % (0.0-8.0); HEMATOCRIT 35.2 % (42-54); LYMPHOCYTES % (AUTO) 31.1 % (21.0-51.0); MEAN CORPUSCULAR HEMOGLOBIN 29.9 pg (27.0-33.0); MEAN CORPUSCULAR HGB CONC 35.2 g/dL (32.0-36.0); MEAN CORPUSCULAR VOLUME 84.8 fL (79-99); MONOCYTES % (AUTO) 7.3 % (3.0-13.0); NEUTROPHILS % (AUTO) 58.1 % (40.0-77.0); PLATELET COUNT (AUTO) 151 K/uL (130-400); RED BLOOD CELL COUNT(AUTO) 4.15 MIL/uL (4.50-6.20); RED CELL DISTRIBUTION WIDTH 13.4 % (11.0-15.5); WHITE BLOOD COUNT (AUTO) 4.5 K/uL (4.8-10.8)
[2020-09-05 04:40] LABS: ALBUMIN 2.8 g/dL (3.5-5.0); BILIRUBIN,TOTAL 0.3 mg/dL (0.2-1.0); CREATININE 0.7 mg/dL (0.5-1.5); TOTAL PROTEIN, SERUM 6.1 g/dL (6.0-8.3)
[2020-09-05] MEDS: ONDANSETRON HCL 4 MG/2 ML VIAL IV PRN (05:11)
[2020-09-05] MEDS ORDERED: ISOSORBIDE MONO 30MG TAB SR PO ONE (05:22)
[2020-09-05] MEDS: ISOSORBIDE MONO 30MG TAB SR PO SCH (05:25)
[2020-09-05 08:24] LABS: INR 0.93 (0.85-1.15); PARTIAL THROMBOPLASTIN TIME 24.9 SEC (26.3-35.5); PROTHROMBIN TIME 10.1 SEC (9.6-11.6)
[2020-09-05] MEDS ORDERED: LABETALOL HCL 5 MG/ML 20ML VIAL IV PRN (08:30)
[2020-09-05 08:58] LABS: APPEARANCE,URINE Clear (CLEAR); BILIRUBIN,URINE Negative (NEGATIVE); COLOR,URINE Yellow (YELLOW); GLUCOSE, URINE (UA) >=1000 mg/dL (NEGATIVE); KETONES,URINE Negative (NEGATIVE); LEUKOCYTE ESTERASE ,URINE Negative (NEGATIVE); NITRATE,URINE Negative (NEGATIVE); OCCULT BLOOD,URINE Trace (NEGATIVE); PROTEIN,URINE POS 2+ mg/dL (NEGATIVE); UROBILINOGEN,URINE 0.2 mg/dL (0.2-1.0)
[2020-09-05 09:03] LABS: HEMOGLOBIN A1C 10.6 % (4.0-6.0)
[2020-09-05 09:05] LABS: AMPHET/METH SCREEN,URINE NEGATIVE (NEGATIVE); BARBITURATE SCREEN, URINE NEGATIVE (NEGATIVE); BENZODIAZEPINES SCREEN,URINE NEGATIVE (NEGATIVE); CANNABINOID SCREEN,URINE NEGATIVE (NEGATIVE); COCAINE SCREEN,URINE NEGATIVE (NEGATIVE); OPIATE SCREEN,URINE NEGATIVE (NEGATIVE); PHENCYCLIDINE SCREEN,URINE NEGATIVE (NEGATIVE)
[2020-09-05 09:13] LABS: BACTERIA,URINE Rare /HPF (None Seen); RBC,URINE 0-1 /HPF (0-1)
[2020-09-05] MEDS: FAMOTIDINE/PF 20 MG/2 ML VIAL IV SCH ×2 (11:37→21:20)
[2020-09-05] MEDS: LEVOTHYROXINE 75 MCG TABLET PO SCH (11:37)
[2020-09-05] MEDS: CLOPIDOGREL BISULFATE 75 MG TAB PO SCH (11:37)
[2020-09-05] MEDS: ASPIRIN 81MG TAB.CHEW PO SCH (11:37)
[2020-09-05] MEDS: HYDROCHLOROTHIAZIDE 25 MG TABLET PO SCH (11:38)
[2020-09-05] MEDS: INSULIN HUMULIN R 100 UNIT/ML 3ML SQ SCH ×5 (11:40→21:30)
[2020-09-05] MEDS: INSULIN GLARGINE 100 UNITS/ML 10 ML VIAL SQ SCH ×2 (11:40→21:29)
--- NOTE | 2020-09-05 17:31 | NUR ---
cm note met with patient and states resides at home with sister, uses cane for ambulation, does own adls/self care. and has no home services. sees at [facility], and gets meds at [facility]. provided information on [facility] and [facility] agency on aging. , states he will followup. dc plan is back home with sister. no dc needs. Addendum: 09/05/20 at 1738 by JASPER TRIVEDI CM Amended: Links added.
[2020-09-05] MEDS: ATORVASTATIN CALCIUM 40 MG TABLET PO SCH (21:20)
[2020-09-06] VITALS (19 sets, daily range): BP systolic 97–150; BP diastolic 62–93
[2020-09-06 03:33] LABS: BASOPHILS % (AUTO) 0.8 % (0.0-5.0); EOSINOPHILS % (AUTO) 2.9 % (0.0-8.0); HEMATOCRIT 35.2 % (42-54); MEAN CORPUSCULAR HEMOGLOBIN 30.7 pg (27.0-33.0); MEAN CORPUSCULAR HGB CONC 35.5 g/dL (32.0-36.0); MEAN CORPUSCULAR VOLUME 86.5 fL (79-99); MONOCYTES % (AUTO) 7.9 % (3.0-13.0); NEUTROPHILS % (AUTO) 54.2 % (40.0-77.0); PLATELET COUNT (AUTO) 153 K/uL (130-400); RED BLOOD CELL COUNT(AUTO) 4.07 MIL/uL (4.50-6.20); RED CELL DISTRIBUTION WIDTH 13.4 % (11.0-15.5); WHITE BLOOD COUNT (AUTO) 4.8 K/uL (4.8-10.8)
[2020-09-06 03:45] LABS: ALBUMIN 2.8 g/dL (3.5-5.0); BILIRUBIN,TOTAL 0.2 mg/dL (0.2-1.0); CREATININE 0.7 mg/dL (0.5-1.5); POTASSIUM 4.2 mmol/L (3.5-5.1); TOTAL PROTEIN, SERUM 6.2 g/dL (6.0-8.3)
[2020-09-06 03:51] LABS: INR 0.88 (0.85-1.15); PARTIAL THROMBOPLASTIN TIME 24.5 SEC (26.3-35.5); PROTHROMBIN TIME 9.6 SEC (9.6-11.6)
[2020-09-06] MEDS: SODIUM CHLORIDE 0.9% 1000ML 1,000 ML IV SCH (06:14)
[2020-09-06] MEDS: INSULIN HUMULIN R 100 UNIT/ML 3ML SQ SCH ×7 (06:48→21:00)
[2020-09-06] MEDS: LEVOTHYROXINE 75 MCG TABLET PO SCH (07:29)
[2020-09-06] MEDS: ISOSORBIDE MONO 30MG TAB SR PO SCH (08:06)
[2020-09-06] MEDS: ASPIRIN 81MG TAB.CHEW PO SCH (08:07)
[2020-09-06] MEDS: CLOPIDOGREL BISULFATE 75 MG TAB PO SCH (08:07)
[2020-09-06] MEDS: HYDROCHLOROTHIAZIDE 25 MG TABLET PO SCH (08:07)
[2020-09-06] MEDS: FAMOTIDINE/PF 20 MG/2 ML VIAL IV SCH ×2 (08:07→21:22)
--- NOTE | 2020-09-06 09:40 | NUR ---
Dr Diamond at bedside to assess patient
--- NOTE | 2020-09-06 12:30 | NUR ---
Dr Rees at bedside to assess patient
--- NOTE | 2020-09-06 13:28 | NUR ---
DYSPHAGIA EVAL COMPLETED. -S/S OF ASPIRATION. RECOMMEND REGULAR TEXTURE, THIN LIQUIDS; PILLS WHOLE WITH THIN LIQUIDS Addendum: 09/06/20 at 1329 by TORREY LEPE, [facility] Amended: Links added.
--- NOTE | 2020-09-06 13:30 | NUR ---
COGNITIVE EVAL COMPLETE. COGNITIVE-LINGUISTIC ABILITIES WITHIN FUNCTIONAL LIMITS. EVALUATION: Pt AAOX3. Pt REQUESTS WANTS AND NEEDS INDEPENDENTLY. Pt INTELLIGIBLE AT 100% ACCURACY TO THE UNFAMILIAR LISTENER. Pt COMMUNICATING AT CONVERSATIONAL LEVEL WITH NO DEFICITS IDENTIFIED AT THIS TIME. Pt COMPLETED COGNITIVE-LINGUISTIC EVALUATION TARGETING: ORIENTATION, ATTENTION/CONCENTRATION, MEMORY (IMMEDIATE, SHORT-TERM AND LONG-TERM), PROBLEM SOLVING, LOGIC/REASONING/INFERENCE, THOUGHT ORGANIZATION, FUNCTIONAL MATH AND TELLING TIME. Pt ABLE TO COMPLETE TASKS WITH CORRECT AND TIMELY ANSWERS TO ALL SECTIONS. G-CODES SPOKEN LANGUAGE EXPRESSION: [id number] Addendum: 09/06/20 at 1332 by TORREY LEPE [facility] Amended: Links added.
--- NOTE | 2020-09-06 16:40 | NUR ---
Report given to CELESTE Borges, having dinner at this time, pending to be transferred to room 411
--- NOTE | 2020-09-06 16:55 | NUR ---
Transferred to room 411 via wheelchair with personal belongings on hand.
[2020-09-06] MEDS: INSULIN GLARGINE 100 UNITS/ML 10 ML VIAL SQ SCH (21:00)
[2020-09-06] MEDS: ATORVASTATIN CALCIUM 40 MG TABLET PO SCH (21:22)
--- NOTE | 2020-09-06 22:54 | NUR ---
PATIENT WITH SYMPTOMATIC HYPOGLYCEMIA WITH GLUCOSE AT 62 MG/DL. I SPOKE WITH CHRISTOPHER BARTH CEILING INSTALLER RECEIVED NEW ORDERS FOR HYPOGLYCEMIC PROTOCOL. PATIENT WAS GIVEN 2 ORANGE JUICE WITH NO EFFECT, PT CONT WITH C/O NOT FEELING WELL.
[2020-09-06] MEDS ORDERED: DEXTROSE 50%-WATER 50 ML DISP.SYRIN IV ONE (22:57)
[2020-09-06] MEDS ORDERED: DEXTROSE 50%-WATER 50 ML DISP.SYRIN IV PRN (23:00)
[2020-09-06] MEDS ORDERED: GLUCAGON 1MG KIT 1 MG ML IM PRN (23:00)
--- NOTE | 2020-09-06 23:32 | NUR ---
RECHECK OF GLUCOSE AFTER D50 AMP WAS AT 192 MG/DL. PATIENT STATES HE FEELS BETTER. WILL CONT TO MONITOR CLOSELY.
[2020-09-07 05:23] LABS: BASOPHILS % (AUTO) 0.5 % (0.0-5.0); EOSINOPHILS % (AUTO) 1.8 % (0.0-8.0); HEMATOCRIT 40.4 % (42-54); LYMPHOCYTES % (AUTO) 27.2 % (21.0-51.0); MEAN CORPUSCULAR HEMOGLOBIN 29.4 pg (27.0-33.0); MEAN CORPUSCULAR HGB CONC 34.2 g/dL (32.0-36.0); MEAN CORPUSCULAR VOLUME 86.1 fL (79-99); MONOCYTES % (AUTO) 8.7 % (3.0-13.0); NEUTROPHILS % (AUTO) 61.8 % (40.0-77.0); PLATELET COUNT (AUTO) 193 K/uL (130-400); RED BLOOD CELL COUNT(AUTO) 4.69 MIL/uL (4.50-6.20); RED CELL DISTRIBUTION WIDTH 13.5 % (11.0-15.5); WHITE BLOOD COUNT (AUTO) 6.2 K/uL (4.8-10.8)
[2020-09-07 05:41] LABS: ALBUMIN 3.5 g/dL (3.5-5.0); BILIRUBIN,TOTAL 0.4 mg/dL (0.2-1.0); CREATININE 0.8 mg/dL (0.5-1.5); POTASSIUM 4.3 mmol/L (3.5-5.1); TOTAL PROTEIN, SERUM 7.2 g/dL (6.0-8.3)
[2020-09-07] MEDS: INSULIN HUMULIN R 100 UNIT/ML 3ML SQ SCH ×6 (07:45→16:48)
[2020-09-07 08:00] VITALS: BP 126/84
[2020-09-07] MEDS ORDERED: FAMOTIDINE 20MG TAB 20 MG TAB ONE (08:52)
[2020-09-07] MEDS: FAMOTIDINE/PF 20 MG/2 ML VIAL IV SCH (09:00)
[2020-09-07] MEDS: HYDROCHLOROTHIAZIDE 25 MG TABLET PO SCH (09:16)
[2020-09-07] MEDS: ISOSORBIDE MONO 30MG TAB SR PO SCH (09:17)
[2020-09-07] MEDS: LEVOTHYROXINE 75 MCG TABLET PO SCH (09:17)
[2020-09-07] MEDS: ASPIRIN 81MG TAB.CHEW PO SCH (09:18)
[2020-09-07] MEDS: CLOPIDOGREL BISULFATE 75 MG TAB PO SCH (09:19)
[2020-09-07 11:00] VITALS: BP 101/74
--- NOTE | 2020-09-07 15:00 | NUR ---
FOLLOW UP COMPLETED. Pt TOLERATING CURRENT REGULAR TEXTURE, THIN LIQUID DIET. NO OVERT S/S OF ASPIRATION AT THIS TIME. SKILLED SPEECH THERAPY IS NOT RECOMMENDED AT THIS TIME. Addendum: 09/07/20 at 1501 by TORREY LEPE, [facility] Amended: Links added.
[2020-09-07] MEDS ORDERED: FAMOTIDINE 20MG TAB 20 MG TAB PO SCH (21:00)
--- NOTE | 2020-09-08 16:50 | NUR ---
Transitional Care - Post Discharge Note Spoke with patient at number listed. As per Mr Linn, he is doing "much better." He states he has not made a follow up appointment with his PCP, but assured me he would make one tomorrow, and with Dr Diamond as well. Patient states he is taking his home medications as ordered. No complaints of numbness, weakness, dysphagia, aspiration, SOB, coughing while eating, fever/chills reported. Addendum: 09/08/20 at 1658 by NIKKI FERNANDEZ Amended: Links added.
== END 2020-09-07 17:26 | disposition home or self-care (01) | DRG 62 ==
LOC: EDH 08:10 → EEVIPCON 08:11 → EDHIP 08:11 → 2DH 18:04 → 4BH 09-06 17:06
PROVIDERS: ADMIT Hospitalist; ATTEND Hospitalist
DX: I63.9 Cerebral infarction, unspecified (principal); G81.91 Hemiplegia, unspecified affecting right dominant side; E44.0 Moderate protein-calorie malnutrition; I10 Essential (primary) hypertension; E11.40 Type 2 diabetes mellitus with diabetic neuropathy, unspecified; E03.9 Hypothyroidism, unspecified; E66.9 Obesity, unspecified; E78.5 Hyperlipidemia, unspecified; I25.10 Atherosclerotic heart disease of native coronary artery without angina pectoris; Z81.8 Family history of other mental and behavioral disorders; Z82.49 Family history of ischemic heart disease and other diseases of the circulatory system; Z91.010 Allergy to peanuts; Z91.013 Allergy to seafood; Z83.3 Family history of diabetes mellitus; Z91.11 Patient's noncompliance with dietary regimen; Z91.14 Patient's other noncompliance with medication regimen; Z91.19 Patient's noncompliance with other medical treatment and regimen; Z95.5 Presence of coronary angioplasty implant and graft; Z68.35 Body mass index [BMI] 35.0-35.9, adult
CPT/HCPCS: 36415; 70450; 70496; 70498; 70551; 71045; 80053; 80061; 80305; 81001; 82550; 82948; 83036; 83721; 84484; 85025; 85384; 85610; 85730; 92522; 92610; 93005; 93306; 97039; 99291; G0378; J1815; J2060; J2405; J2997; J3490; J7030; J7070; Q9967

== ENCOUNTER 2021-06-13 13:08 | Inpatient (IN) | payer SELFPAY ==
[~2021-06-13] VITALS: Ht 172.7 cm; Wt 105.2 kg
[2021-06-13] MEDS: VANCOMYCIN 1.5GM/NS 250ML IV SCH ×4 (03:00→15:39)
[~2021-06-13 13:08] MED LIST changes: +CLOP75TA32 PO; +EXEN10PE3 SQ; +HYDR12.54 PO; +ISOS30TA92 PO; +LEVO75 PO; -LISI-617 PO; +LISI-809 PO; +METF-446 PO; +SERT-439 PO; -SERT50TA12 PO; +TERA2CAP4 PO
[2021-06-13 13:50] VITALS: BP 133/88
[2021-06-13] MEDS ORDERED: ZOSYN 3.375GM+NS 50ML 3.38 GM in 0.9%NACL 50ML 50 ML IV SCH ×2 (14:30→23:00)
[2021-06-13 14:35] LABS: BASOPHILS % (AUTO) 0.2 % (0.0-5.0); EOSINOPHILS % (AUTO) 0.2 % (0.0-8.0); HEMATOCRIT 32.9 % (42-54); LYMPHOCYTES % (AUTO) 7.1 % (21.0-51.0); MEAN CORPUSCULAR HEMOGLOBIN 29.8 pg (27.0-33.0); MEAN CORPUSCULAR HGB CONC 35.3 g/dL (32.0-36.0); MEAN CORPUSCULAR VOLUME 84.6 fL (79-99); MONOCYTES % (AUTO) 9.4 % (3.0-13.0); NEUTROPHILS % (AUTO) 82.8 % (40.0-77.0); PLATELET COUNT (AUTO) 131 K/uL (130-400); RED BLOOD CELL COUNT(AUTO) 3.89 MIL/uL (4.50-6.20); RED CELL DISTRIBUTION WIDTH 13.2 % (11.0-15.5); WHITE BLOOD COUNT (AUTO) 9.3 K/uL (4.8-10.8)
[2021-06-13 14:53] LABS: BILIRUBIN,TOTAL 0.7 mg/dL (0.2-1.0); POTASSIUM 3.9 mmol/L (3.5-5.1); TOTAL PROTEIN, SERUM 7.5 g/dL (6.0-8.3)
[2021-06-13 15:03] LABS: CRP QUANTITATIVE 221.9 mg/L (0.00-9.0)
[2021-06-13] MEDS ORDERED: 0.9%NACL 50ML 50 ML IV ONE (15:03)
[2021-06-13] MEDS: ZOSYN 3.375GM +NS 50ML IV SCH (15:05)
[2021-06-13] MEDS ORDERED: 0.9% NACL 250ML IVPB SCH (15:30)
[2021-06-13] MEDS ORDERED: 0.9%NACL 1000ML 1,000 ML IV SCH (15:30)
[2021-06-13] MEDS ORDERED: VANCOMYCIN PROTOCOL PER PHARMACY IV SCH ×2 (15:30→17:00)
[2021-06-13] MEDS ORDERED: VANCOMYCIN 500MG+NS 100ML 100 ML IV ONE (15:36)
[2021-06-13] MEDS ORDERED: INSULIN REGULAR, HUMAN 3ML 100 UNIT in 0.9%NACL 100ML 99 ML IV PRN ×2 (16:00)
[2021-06-13] MEDS ORDERED: COMPOUND IV REFRIGERATED 1 EACH IVSOLN MISC PRN (16:00)
[2021-06-13] MEDS ORDERED: INSULIN HUMULIN R 100 UNIT/ML 3ML ONE ×2 (16:03→16:08)
[2021-06-13] MEDS ORDERED: ZOSYN 3.375GM +NS 50ML IV SCH (17:00)
[2021-06-13 17:11] LABS: PROTHROMBIN TIME 10.9 SEC (9.6-11.6)
[2021-06-13 17:12] LABS: PARTIAL THROMBOPLASTIN TIME 27.3 SEC (26.3-35.5)
[2021-06-13] MEDS: LACTATED RINGERS 1000ML 1,000 ML IV SCH (17:43)
[2021-06-13] MEDS ORDERED: INSULIN HUMULIN R 100 UNIT/ML 3ML SQ SCH ×2 (18:00→21:00)
[2021-06-13 19:10] LABS: CREATININE 0.6 mg/dL (0.5-1.5); POTASSIUM 4.3 mmol/L (3.5-5.1)
[2021-06-13] MEDS ORDERED: ONDANSETRON 4MG INJ ONE (20:23)
[2021-06-13] MEDS ORDERED: ACETAMINOPHEN 325 MG TAB ONE (20:24)
[2021-06-13] MEDS ORDERED: INSULIN GLARGINE 100 UNITS/ML 10 ML VIAL SQ SCH (21:00)
[2021-06-13] MEDS ORDERED: ONDANSETRON 4MG INJ IVP PRN (21:00)
[2021-06-13] MEDS ORDERED: ALPRAZOLAM 1 MG TAB PO ONE (21:00)
[2021-06-13] MEDS: ACETAMINOPHEN 325 MG TAB PO PRN (21:08)
[2021-06-13] MEDS: INSULIN GLARGINE 100 UNITS/ML 10 ML VIAL SQ SCH (21:25)
[2021-06-13 22:45] VITALS: BP 145/71
[2021-06-14] VITALS (8 sets, daily range): BP systolic 118–162; BP diastolic 70–98
[2021-06-14] MEDS ORDERED: 0.9%NACL 50ML 50 ML IV ONE (00:30)
[2021-06-14] MEDS: ZOSYN 3.375GM +NS 50ML IV SCH ×4 (00:32→20:10)
[2021-06-14] MEDS ORDERED: VANCOMYCIN 1G/250ML KIT 250 ML IV ONE (02:51)
[2021-06-14] MEDS: LACTATED RINGERS 1000ML 1,000 ML IV SCH ×2 (06:20→19:40)
[2021-06-14] MEDS: INSULIN HUMULIN R 100 UNIT/ML 3ML SQ SCH ×7 (08:30→19:37)
[2021-06-14 08:53] LABS: BASOPHILS % (AUTO) 0.4 % (0.0-5.0); HEMATOCRIT 34.4 % (42-54); LYMPHOCYTES % (AUTO) 17.4 % (21.0-51.0); MEAN CORPUSCULAR HEMOGLOBIN 29.9 pg (27.0-33.0); MEAN CORPUSCULAR HGB CONC 34.3 g/dL (32.0-36.0); MEAN CORPUSCULAR VOLUME 87.1 fL (79-99); MONOCYTES % (AUTO) 9.2 % (3.0-13.0); NEUTROPHILS % (AUTO) 70.6 % (40.0-77.0); PLATELET COUNT (AUTO) 158 K/uL (130-400); RED BLOOD CELL COUNT(AUTO) 3.95 MIL/uL (4.50-6.20); RED CELL DISTRIBUTION WIDTH 13.2 % (11.0-15.5); WHITE BLOOD COUNT (AUTO) 7.5 K/uL (4.8-10.8)
[2021-06-14] MEDS: CLOPIDOGREL 75MG TAB PO SCH (09:00)
[2021-06-14] MEDS: VANCOMYCIN 1.5GM/NS 250ML IV SCH ×4 (09:00→20:49)
[2021-06-14] MEDS: ASPIRIN 81MG CHEW TAB PO SCH (09:00)
[2021-06-14 09:13] LABS: CREATININE 0.6 mg/dL (0.5-1.5); POTASSIUM 3.6 mmol/L (3.5-5.1)
[2021-06-14] MEDS ORDERED: INSU100V12 SQ ×2 (18:50)
[2021-06-14] MEDS: INSULIN GLARGINE 100 UNITS/ML 10 ML VIAL SQ SCH (20:11)
[2021-06-15] MEDS ORDERED: HONEY 1 APPL/ML TUBE TP ONE (03:02)
[2021-06-15 04:03] VITALS: BP 151/96
[2021-06-15 04:29] LABS: BASOPHILS % (AUTO) 0.5 % (0.0-5.0); EOSINOPHILS % (AUTO) 2.2 % (0.0-8.0); HEMATOCRIT 30.1 % (42-54); LYMPHOCYTES % (AUTO) 21.6 % (21.0-51.0); MEAN CORPUSCULAR HEMOGLOBIN 29.8 pg (27.0-33.0); MEAN CORPUSCULAR HGB CONC 34.6 g/dL (32.0-36.0); MEAN CORPUSCULAR VOLUME 86.2 fL (79-99); MONOCYTES % (AUTO) 10.3 % (3.0-13.0); NEUTROPHILS % (AUTO) 65.2 % (40.0-77.0); PLATELET COUNT (AUTO) 164 K/uL (130-400); RED BLOOD CELL COUNT(AUTO) 3.49 MIL/uL (4.50-6.20); RED CELL DISTRIBUTION WIDTH 13.2 % (11.0-15.5); WHITE BLOOD COUNT (AUTO) 5.5 K/uL (4.8-10.8)
[2021-06-15 04:35] LABS: HEMOGLOBIN A1C 11.8 % (4.0-6.0)
[2021-06-15 04:55] LABS: ALBUMIN 2.1 g/dL (3.5-5.0); BILIRUBIN,TOTAL 0.3 mg/dL (0.2-1.0); CREATININE 0.7 mg/dL (0.5-1.5); CRP QUANTITATIVE 112.6 mg/L (0.00-9.0); POTASSIUM 3.5 mmol/L (3.5-5.1); TOTAL PROTEIN, SERUM 5.7 g/dL (6.0-8.3)
[2021-06-15] MEDS: INSULIN HUMULIN R 100 UNIT/ML 3ML SQ SCH ×7 (05:16→20:01)
[2021-06-15] MEDS: ZOSYN 3.375GM +NS 50ML IV SCH ×3 (05:22→22:49)
[2021-06-15 05:30] LABS: ERYTHROCYTE SEDIMENTATION RATE 118 MM/HR (0-20)
[2021-06-15 08:00] VITALS: BP 145/90
[2021-06-15] MEDS: ASPIRIN 81MG CHEW TAB PO SCH (10:14)
[2021-06-15] MEDS: HONEY 1 APPL/ML TUBE TP SCH (10:15)
[2021-06-15] MEDS: CLOPIDOGREL 75MG TAB PO SCH (10:15)
[2021-06-15] MEDS: LACTATED RINGERS 1000ML 1,000 ML IV SCH ×2 (10:16→20:02)
[2021-06-15 12:00] VITALS: BP 154/92
[2021-06-15] MEDS: VANCOMYCIN 1.5GM/NS 250ML IV SCH ×4 (12:16→20:21)
[2021-06-15 16:00] VITALS: BP 153/98
[2021-06-15] MEDS ORDERED: LISINOPRIL 5 MG TABLET PO SCH (16:00)
[2021-06-15 19:10] VITALS: BP 162/88
[2021-06-15] MEDS: ATORVASTATIN 40 MG TABLET PO SCH (20:00)
[2021-06-15] MEDS: INSULIN GLARGINE 100 UNITS/ML 10 ML VIAL SQ SCH (20:02)
[2021-06-15] MEDS: ACETAMINOPHEN 325 MG TAB PO PRN (22:49)
[2021-06-15 23:42] VITALS: BP 136/70
[2021-06-16] MEDS: ZOSYN 3.375GM +NS 50ML IV SCH ×3 (05:27→22:48)
[2021-06-16 06:20] LABS: BASOPHILS % (AUTO) 0.6 % (0.0-5.0); EOSINOPHILS % (AUTO) 2.4 % (0.0-8.0); MEAN CORPUSCULAR HEMOGLOBIN 29.3 pg (27.0-33.0); MEAN CORPUSCULAR HGB CONC 33.2 g/dL (32.0-36.0); MEAN CORPUSCULAR VOLUME 88.1 fL (79-99); MONOCYTES % (AUTO) 11.5 % (3.0-13.0); NEUTROPHILS % (AUTO) 65.3 % (40.0-77.0); PLATELET COUNT (AUTO) 158 K/uL (130-400); RED BLOOD CELL COUNT(AUTO) 3.52 MIL/uL (4.50-6.20); RED CELL DISTRIBUTION WIDTH 13.2 % (11.0-15.5)
[2021-06-16] MEDS: INSULIN HUMULIN R 100 UNIT/ML 3ML SQ SCH ×7 (06:35→20:01)
[2021-06-16 06:44] LABS: CREATININE 0.8 mg/dL (0.5-1.5); POTASSIUM 3.5 mmol/L (3.5-5.1)
[2021-06-16 08:00] VITALS: BP 176/101
[2021-06-16] MEDS ORDERED: LISINOPRIL 5 MG TABLET PO SCH (09:00)
[2021-06-16] MEDS: ISOSORBIDE MONO 30MG SR TAB PO SCH (09:04)
[2021-06-16] MEDS: CLOPIDOGREL 75MG TAB PO SCH (09:06)
[2021-06-16] MEDS: HYDROCHLOROTHIAZIDE 25 MG TABLET PO SCH (09:07)
[2021-06-16] MEDS: HONEY 1 APPL/ML TUBE TP SCH (09:07)
[2021-06-16] MEDS: ASPIRIN 81MG CHEW TAB PO SCH (09:07)
[2021-06-16] MEDS: ENOXAPARIN SODIUM 30 MG/0.3 ML SQ SCH (10:38)
[2021-06-16 12:00] VITALS: BP 166/104
[2021-06-16] MEDS ORDERED: COMPOUND IV REFRIGERATED 1 EACH IVSOLN MISC PRN (12:30)
[2021-06-16] MEDS: VANCOMYCIN 1.5GM/NS 250ML IV SCH ×4 (12:40→19:59)
[2021-06-16 16:00] VITALS: BP 154/88
[2021-06-16 19:25] VITALS: BP 154/101
[2021-06-16] MEDS: ATORVASTATIN 40 MG TABLET PO SCH (19:58)
[2021-06-16] MEDS: ACETAMINOPHEN 325 MG TAB PO PRN (19:59)
[2021-06-16] MEDS: INSULIN GLARGINE 100 UNITS/ML 10 ML VIAL SQ SCH (20:02)
[2021-06-16 22:45] VITALS: BP 151/90
[2021-06-17 03:15] VITALS: BP 163/103
[2021-06-17] MEDS: ZOSYN 3.375GM +NS 50ML IV SCH ×3 (05:21→22:39)
[2021-06-17] MEDS: INSULIN HUMULIN R 100 UNIT/ML 3ML SQ SCH ×7 (05:21→19:52)
[2021-06-17 08:00] VITALS: BP 161/86
[2021-06-17 08:15] LABS: BASOPHILS % (AUTO) 0.6 % (0.0-5.0); EOSINOPHILS % (AUTO) 2.5 % (0.0-8.0); HEMATOCRIT 31.9 % (42-54); LYMPHOCYTES % (AUTO) 19.2 % (21.0-51.0); MEAN CORPUSCULAR HEMOGLOBIN 29.8 pg (27.0-33.0); MEAN CORPUSCULAR HGB CONC 34.2 g/dL (32.0-36.0); MEAN CORPUSCULAR VOLUME 87.2 fL (79-99); MONOCYTES % (AUTO) 10.1 % (3.0-13.0); NEUTROPHILS % (AUTO) 67.3 % (40.0-77.0); PLATELET COUNT (AUTO) 189 K/uL (130-400); RED BLOOD CELL COUNT(AUTO) 3.66 MIL/uL (4.50-6.20); RED CELL DISTRIBUTION WIDTH 13.2 % (11.0-15.5); WHITE BLOOD COUNT (AUTO) 6.4 K/uL (4.8-10.8)
[2021-06-17 08:17] LABS: CREATININE 0.9 mg/dL (0.5-1.5); POTASSIUM 3.4 mmol/L (3.5-5.1)
[2021-06-17] MEDS: VANCOMYCIN 1.5GM/NS 250ML IV SCH ×2 (09:00)
[2021-06-17] MEDS: HONEY 1 APPL/ML TUBE TP SCH (09:00)
[2021-06-17] MEDS ORDERED: KCL 20 MEQ ERTAB PO SCH (09:30)
[2021-06-17] MEDS: HYDROCHLOROTHIAZIDE 25 MG TABLET PO SCH (09:54)
[2021-06-17] MEDS: ASPIRIN 81MG CHEW TAB PO SCH (09:55)
[2021-06-17] MEDS: ENOXAPARIN SODIUM 30 MG/0.3 ML SQ SCH (09:55)
[2021-06-17] MEDS: CLOPIDOGREL 75MG TAB PO SCH (09:55)
[2021-06-17] MEDS: ISOSORBIDE MONO 30MG SR TAB PO SCH (09:58)
[2021-06-17] MEDS: LEVOTHYROXINE 75 MCG TABLET PO SCH (10:01)
[2021-06-17] MEDS: ACETAMINOPHEN 325 MG TAB PO PRN (10:05)
[2021-06-17 11:54] VITALS: BP 171/109
[2021-06-17] MEDS: AMLODIPINE 5 MG TAB PO SCH (12:20)
[2021-06-17 16:00] VITALS: BP 157/97
[2021-06-17] MEDS: ATORVASTATIN 40 MG TABLET PO SCH (19:52)
[2021-06-17] MEDS: INSULIN GLARGINE 100 UNITS/ML 10 ML VIAL SQ SCH (19:53)
[2021-06-17 20:00] VITALS: BP 152/96
[2021-06-17 23:55] VITALS: BP 152/98
[2021-06-18 04:00] VITALS: BP 150/93
[2021-06-18] MEDS: ZOSYN 3.375GM +NS 50ML IV SCH ×3 (05:23→23:40)
[2021-06-18] MEDS: LEVOTHYROXINE 75 MCG TABLET PO SCH (05:23)
[2021-06-18] MEDS: INSULIN HUMULIN R 100 UNIT/ML 3ML SQ SCH ×7 (05:32→20:13)
[2021-06-18 06:07] LABS: BASOPHILS % (AUTO) 0.7 % (0.0-5.0); EOSINOPHILS % (AUTO) 2.8 % (0.0-8.0); HEMATOCRIT 30.8 % (42-54); LYMPHOCYTES % (AUTO) 18.3 % (21.0-51.0); MEAN CORPUSCULAR HEMOGLOBIN 29.6 pg (27.0-33.0); MEAN CORPUSCULAR HGB CONC 33.4 g/dL (32.0-36.0); MEAN CORPUSCULAR VOLUME 88.5 fL (79-99); NEUTROPHILS % (AUTO) 65.9 % (40.0-77.0); PLATELET COUNT (AUTO) 201 K/uL (130-400); RED BLOOD CELL COUNT(AUTO) 3.48 MIL/uL (4.50-6.20); RED CELL DISTRIBUTION WIDTH 13.1 % (11.0-15.5); WHITE BLOOD COUNT (AUTO) 6.1 K/uL (4.8-10.8)
[2021-06-18 06:33] LABS: POTASSIUM 3.3 mmol/L (3.5-5.1)
[2021-06-18] MEDS ORDERED: VANCOMYCIN 1.5GM/NS 250ML IV SCH ×4 (07:30→09:00)
[2021-06-18] MEDS: CLOPIDOGREL 75MG TAB PO SCH (07:56)
[2021-06-18] MEDS: ISOSORBIDE MONO 30MG SR TAB PO SCH (07:56)
[2021-06-18] MEDS: ASPIRIN 81MG CHEW TAB PO SCH (07:56)
[2021-06-18] MEDS: HYDROCHLOROTHIAZIDE 25 MG TABLET PO SCH (07:56)
[2021-06-18] MEDS: AMLODIPINE 5 MG TAB PO SCH (07:56)
[2021-06-18] MEDS: HONEY 1 APPL/ML TUBE TP SCH (07:57)
[2021-06-18] MEDS: ENOXAPARIN SODIUM 30 MG/0.3 ML SQ SCH (07:57)
[2021-06-18] MEDS: ACETAMINOPHEN 325 MG TAB PO PRN ×2 (07:57→16:40)
[2021-06-18 08:00] VITALS: BP 136/97
[2021-06-18 12:00] VITALS: BP 148/100
[2021-06-18] MEDS ORDERED: VANCOMYCIN KIT 1 GM/250 ML IV.KIT IV SCH (14:00)
[2021-06-18] MEDS ORDERED: 0.9% NACL 250ML 250 ML IV SCH ×2 (14:00→16:00)
[2021-06-18] MEDS: VANCOMYCIN KIT 1 GM/250 ML IV.KIT IV SCH ×2 (15:37→21:46)
[2021-06-18 16:00] VITALS: BP 173/95
[2021-06-18] MEDS ORDERED: HYDRALAZINE HCL 10 MG TABLET PO STA (16:58)
[2021-06-18] MEDS ORDERED: POTASSIUM CHLORIDE 20MEQ/100ML 100 ML IV PRN (17:00)
[2021-06-18] MEDS ORDERED: LIDOCAINE HCL-MPF 1% 2ML VIAL IV PRN (17:00)
[2021-06-18] MEDS ORDERED: KCL 20 MEQ ERTAB PO PRN (17:00)
[2021-06-18] MEDS ORDERED: HYDRALAZINE HCL 10 MG TABLET PO PRN (17:00)
[2021-06-18] MEDS: POTASSIUM CHLORIDE 10% ELIXIR 20 MEQ/15 ML UDCUP PO PRN (17:17)
[2021-06-18 20:00] VITALS: BP 162/98
[2021-06-18] MEDS: INSULIN GLARGINE 100 UNITS/ML 10 ML VIAL SQ SCH (20:15)
[2021-06-18] MEDS: ATORVASTATIN 40 MG TABLET PO SCH (21:08)
[2021-06-19] VITALS: BP 154/95
[2021-06-19 04:00] VITALS: BP 158/97
[2021-06-19] MEDS: INSULIN HUMULIN R 100 UNIT/ML 3ML SQ SCH ×8 (05:20→20:47)
[2021-06-19] MEDS: VANCOMYCIN KIT 1 GM/250 ML IV.KIT IV SCH ×3 (05:34→21:23)
[2021-06-19 06:14] LABS: BASOPHILS % (AUTO) 0.5 % (0.0-5.0); EOSINOPHILS % (AUTO) 3.4 % (0.0-8.0); HEMATOCRIT 33.4 % (42-54); LYMPHOCYTES % (AUTO) 21.1 % (21.0-51.0); MEAN CORPUSCULAR HEMOGLOBIN 29.8 pg (27.0-33.0); MEAN CORPUSCULAR HGB CONC 34.1 g/dL (32.0-36.0); MEAN CORPUSCULAR VOLUME 87.4 fL (79-99); NEUTROPHILS % (AUTO) 63.7 % (40.0-77.0); PLATELET COUNT (AUTO) 226 K/uL (130-400); RED BLOOD CELL COUNT(AUTO) 3.82 MIL/uL (4.50-6.20); WHITE BLOOD COUNT (AUTO) 5.8 K/uL (4.8-10.8)
[2021-06-19 06:30] LABS: ALBUMIN 2.4 g/dL (3.5-5.0); BILIRUBIN,TOTAL 0.4 mg/dL (0.2-1.0); CREATININE 0.9 mg/dL (0.5-1.5); POTASSIUM 3.4 mmol/L (3.5-5.1); TOTAL PROTEIN, SERUM 6.7 g/dL (6.0-8.3)
[2021-06-19] MEDS: LEVOTHYROXINE 75 MCG TABLET PO SCH (06:31)
[2021-06-19] MEDS: ZOSYN 3.375GM +NS 50ML IV SCH ×3 (07:42→23:08)
[2021-06-19 08:00] VITALS: BP 140/96
[2021-06-19] MEDS: AMLODIPINE 5 MG TAB PO SCH (08:21)
[2021-06-19] MEDS: HYDROCHLOROTHIAZIDE 25 MG TABLET PO SCH (08:21)
[2021-06-19] MEDS: ASPIRIN 81MG CHEW TAB PO SCH (08:21)
[2021-06-19] MEDS: CLOPIDOGREL 75MG TAB PO SCH (08:21)
[2021-06-19] MEDS: POTASSIUM CHLORIDE 10% ELIXIR 20 MEQ/15 ML UDCUP PO PRN ×2 (08:22→11:02)
[2021-06-19] MEDS: ENOXAPARIN SODIUM 30 MG/0.3 ML SQ SCH (08:22)
[2021-06-19] MEDS: HONEY 1 APPL/ML TUBE TP SCH (09:00)
[2021-06-19] MEDS: ISOSORBIDE MONO 30MG SR TAB PO SCH (09:00)
[2021-06-19] MEDS ORDERED: METOPROLOL TARTRATE 25 MG TAB PO SCH (11:00)
[2021-06-19 12:00] VITALS: BP 147/97
[2021-06-19 16:00] VITALS: BP 133/92
[2021-06-19 20:00] VITALS: BP 158/98
[2021-06-19] MEDS: ATORVASTATIN 40 MG TABLET PO SCH (20:40)
[2021-06-19] MEDS: METOPROLOL TARTRATE 25 MG TAB PO SCH (20:40)
[2021-06-19] MEDS: INSULIN GLARGINE 100 UNITS/ML 10 ML VIAL SQ SCH (20:47)
[2021-06-20] VITALS: BP 160/91
[2021-06-20 01:21] LABS: AMPHET/METH SCREEN,URINE NEGATIVE (NEGATIVE); BARBITURATE SCREEN, URINE NEGATIVE (NEGATIVE); BENZODIAZEPINES SCREEN,URINE NEGATIVE (NEGATIVE); CANNABINOID SCREEN,URINE NEGATIVE (NEGATIVE); COCAINE SCREEN,URINE NEGATIVE (NEGATIVE); OPIATE SCREEN,URINE NEGATIVE (NEGATIVE); PHENCYCLIDINE SCREEN,URINE NEGATIVE (NEGATIVE)
[2021-06-20 04:00] VITALS: BP 135/83
[2021-06-20 04:11] LABS: BASOPHILS % (AUTO) 0.7 % (0.0-5.0); EOSINOPHILS % (AUTO) 2.7 % (0.0-8.0); HEMATOCRIT 30.1 % (42-54); LYMPHOCYTES % (AUTO) 23.2 % (21.0-51.0); MEAN CORPUSCULAR HEMOGLOBIN 29.3 pg (27.0-33.0); MEAN CORPUSCULAR HGB CONC 32.6 g/dL (32.0-36.0); MEAN CORPUSCULAR VOLUME 90.1 fL (79-99); MONOCYTES % (AUTO) 11.9 % (3.0-13.0); NEUTROPHILS % (AUTO) 61.1 % (40.0-77.0); PLATELET COUNT (AUTO) 211 K/uL (130-400); RED BLOOD CELL COUNT(AUTO) 3.34 MIL/uL (4.50-6.20); RED CELL DISTRIBUTION WIDTH 13.1 % (11.0-15.5); WHITE BLOOD COUNT (AUTO) 5.6 K/uL (4.8-10.8)
[2021-06-20 04:32] LABS: ALBUMIN 2.2 g/dL (3.5-5.0); BILIRUBIN,TOTAL 0.3 mg/dL (0.2-1.0); POTASSIUM 3.5 mmol/L (3.5-5.1); TOTAL PROTEIN, SERUM 6.1 g/dL (6.0-8.3)
[2021-06-20] MEDS: VANCOMYCIN KIT 1 GM/250 ML IV.KIT IV SCH (05:38)
[2021-06-20] MEDS: ZOSYN 3.375GM +NS 50ML IV SCH (06:20)
[2021-06-20] MEDS: LEVOTHYROXINE 75 MCG TABLET PO SCH (06:20)
[2021-06-20] MEDS: INSULIN HUMULIN R 100 UNIT/ML 3ML SQ SCH ×7 (06:27→21:00)
[2021-06-20 08:00] VITALS: BP 164/97
[2021-06-20] MEDS: HYDROCHLOROTHIAZIDE 25 MG TABLET PO SCH (09:33)
[2021-06-20] MEDS: AMLODIPINE 5 MG TAB PO SCH (09:33)
[2021-06-20] MEDS: METOPROLOL TARTRATE 25 MG TAB PO SCH ×2 (09:33→21:09)
[2021-06-20] MEDS: ASPIRIN 81MG CHEW TAB PO SCH (09:33)
[2021-06-20] MEDS: ISOSORBIDE MONO 30MG SR TAB PO SCH (09:33)
[2021-06-20] MEDS: CLOPIDOGREL 75MG TAB PO SCH (09:34)
[2021-06-20] MEDS: ENOXAPARIN SODIUM 30 MG/0.3 ML SQ SCH (09:35)
[2021-06-20] MEDS: HONEY 1 APPL/ML TUBE TP SCH (09:35)
[2021-06-20] MEDS: POTASSIUM CHLORIDE 10% ELIXIR 20 MEQ/15 ML UDCUP PO PRN ×2 (10:02→12:26)
[2021-06-20 12:00] VITALS: BP 164/100
[2021-06-20 12:48] LABS: HEMATOCRIT 33.1 % (42-54)
[2021-06-20] MEDS ORDERED: AMLODIPINE 5 MG TAB PO ONE (13:00)
[2021-06-20] MEDS ORDERED: LEVOFLOXACIN 750 MG TABLET PO SCH ×3 (14:30→18:30)
[2021-06-20] MEDS: AMOXICILLIN 500 MG CAPSULE PO SCH ×2 (15:20→21:38)
[2021-06-20 16:04] VITALS: BP 159/101
[2021-06-20] MEDS: ACETAMINOPHEN 325 MG TAB PO PRN (16:48)
[2021-06-20] MEDS: HYDRALAZINE 25MG TABLET PO SCH ×2 (18:23→21:09)
[2021-06-20 20:00] VITALS: BP 133/90
[2021-06-20] MEDS: ATORVASTATIN 40 MG TABLET PO SCH (21:09)
[2021-06-20] MEDS: INSULIN GLARGINE 100 UNITS/ML 10 ML VIAL SQ SCH (21:11)
[2021-06-21 00:29] VITALS: BP 150/89
[2021-06-21] MEDS: ACETAMINOPHEN 325 MG TAB PO PRN (03:24)
[2021-06-21 03:25] VITALS: BP 161/105
[2021-06-21 04:04] LABS: BASOPHILS % (AUTO) 0.6 % (0.0-5.0); EOSINOPHILS % (AUTO) 2.6 % (0.0-8.0); HEMATOCRIT 32.2 % (42-54); LYMPHOCYTES % (AUTO) 20.4 % (21.0-51.0); MEAN CORPUSCULAR HEMOGLOBIN 29.4 pg (27.0-33.0); MEAN CORPUSCULAR HGB CONC 33.2 g/dL (32.0-36.0); MEAN CORPUSCULAR VOLUME 88.5 fL (79-99); NEUTROPHILS % (AUTO) 65.9 % (40.0-77.0); PLATELET COUNT (AUTO) 226 K/uL (130-400); RED BLOOD CELL COUNT(AUTO) 3.64 MIL/uL (4.50-6.20); RED CELL DISTRIBUTION WIDTH 13.1 % (11.0-15.5); WHITE BLOOD COUNT (AUTO) 6.2 K/uL (4.8-10.8)
[2021-06-21 04:25] LABS: ALBUMIN 2.4 g/dL (3.5-5.0); BILIRUBIN,TOTAL 0.3 mg/dL (0.2-1.0); POTASSIUM 3.8 mmol/L (3.5-5.1); TOTAL PROTEIN, SERUM 6.8 g/dL (6.0-8.3)
[2021-06-21] MEDS: AMOXICILLIN 500 MG CAPSULE PO SCH ×2 (05:42→14:48)
[2021-06-21] MEDS: LEVOTHYROXINE 75 MCG TABLET PO SCH (05:42)
[2021-06-21] MEDS: INSULIN HUMULIN R 100 UNIT/ML 3ML SQ SCH ×6 (05:45→17:13)
[2021-06-21] MEDS ORDERED: VANCOMYCIN 750MG VIAL IVPB SCH (06:00)
[2021-06-21] MEDS ORDERED: 0.9% NACL 250ML 250 ML IV SCH (06:00)
[2021-06-21 08:00] VITALS: BP 128/84
[2021-06-21] MEDS ORDERED: AMLODIPINE 5 MG TAB PO SCH (09:00)
[2021-06-21] MEDS: ENOXAPARIN SODIUM 30 MG/0.3 ML SQ SCH (10:21)
[2021-06-21] MEDS: CLOPIDOGREL 75MG TAB PO SCH (10:21)
[2021-06-21] MEDS: ASPIRIN 81MG CHEW TAB PO SCH (10:21)
[2021-06-21] MEDS: METOPROLOL TARTRATE 25 MG TAB PO SCH (10:21)
[2021-06-21] MEDS: HYDROCHLOROTHIAZIDE 25 MG TABLET PO SCH (10:22)
[2021-06-21] MEDS: ISOSORBIDE MONO 30MG SR TAB PO SCH (10:22)
[2021-06-21] MEDS: HONEY 1 APPL/ML TUBE TP SCH (10:26)
[2021-06-21 12:00] VITALS: BP 154/101
[2021-06-21] MEDS ORDERED: AMOX500C2 PO (14:35)
[2021-06-21] MEDS ORDERED: LEVO750T46 PO (14:35)
[2021-06-21] MEDS ORDERED: METO25 PO (14:35)
[2021-06-21] MEDS ORDERED: AMLO-258 PO (14:35)
[2021-06-21 15:41] VITALS: BP 144/105
== END 2021-06-21 18:26 | disposition home health service (06) | DRG 603 ==
LOC: EDH 13:08 → OBSVTOIN 13:09 → EDHIP 13:09 → UNDOADMOB 16:41 → 4BH 06-14 16:40
PROVIDERS: ADMIT Internal Medicine; ATTEND Internal Medicine
DX: L03.115 Cellulitis of right lower limb (principal); E87.1 Hypo-osmolality and hyponatremia; I69.354 Hemiplegia and hemiparesis following cerebral infarction affecting left non-dominant side; R65.10 Systemic inflammatory response syndrome (SIRS) of non-infectious origin without acute organ dysfunction; L03.116 Cellulitis of left lower limb; E11.65 Type 2 diabetes mellitus with hyperglycemia; E86.1 Hypovolemia; E11.621 Type 2 diabetes mellitus with foot ulcer; E11.42 Type 2 diabetes mellitus with diabetic polyneuropathy; Z20.822 Contact with and (suspected) exposure to COVID-19; E66.9 Obesity, unspecified; E78.00 Pure hypercholesterolemia, unspecified; E78.5 Hyperlipidemia, unspecified; I11.0 Hypertensive heart disease with heart failure; I25.10 Atherosclerotic heart disease of native coronary artery without angina pectoris; I50.9 Heart failure, unspecified; B96.1 Klebsiella pneumoniae [K. pneumoniae] as the cause of diseases classified elsewhere; B95.2 Enterococcus as the cause of diseases classified elsewhere; L97.519 Non-pressure chronic ulcer of other part of right foot with unspecified severity; L97.529 Non-pressure chronic ulcer of other part of left foot with unspecified severity; Z96.659 Presence of unspecified artificial knee joint; Z68.35 Body mass index [BMI] 35.0-35.9, adult; Z91.010 Allergy to peanuts; Z91.013 Allergy to seafood; Z79.4 Long term (current) use of insulin; Z79.82 Long term (current) use of aspirin; Z95.5 Presence of coronary angioplasty implant and graft; Z91.19 Patient's noncompliance with other medical treatment and regimen; Z91.14 Patient's other noncompliance with medication regimen; Z89.421 Acquired absence of other right toe(s); Z83.3 Family history of diabetes mellitus; Z83.79 Family history of other diseases of the digestive system; Z82.49 Family history of ischemic heart disease and other diseases of the circulatory system
CPT/HCPCS: 36415; 71045; 73630; 73700; 80048; 80053; 80061; 80202; 80305; 82140; 82948; 83036; 83605; 83880; 84145; 84439; 84443; 84484; 85014; 85018; 85025; 85610; 85651; 85730; 86140; 87040; 87070; 87076; 87077; 87186; 87635; 93005; 93970; 97039; C9803; G0378; J1650; J1815; J2405; J2543; J3370; J7050; J7120; L3260

== ENCOUNTER → 2022-12-01 | Outpatient (CLI) | payer MEDICAID ==
[~2022-12-01] MED LIST changes: +AEC81 PO; +AMLO-258 PO; -ASPI-1197 PO; +CEFU500T67 PO; +DOXY100C5 PO; -EXEN10PE3 SQ; -HYDR12.54 PO; +INSU100V12 SQ; -ISOS30TA92 PO; -LEVO75TA10 PO; -LISI-809 PO; -METF-444 PO; -SERT-439 PO; -TERA2CAP4 PO
[2022-12-01 13:52] LABS: BASOPHILS % (AUTO) 0.8 % (0.0-5.0); EOSINOPHILS % (AUTO) 4.9 % (0.0-8.0); HEMATOCRIT 38.5 % (42-54); LYMPHOCYTES % (AUTO) 21.8 % (21.0-51.0); MEAN CORPUSCULAR HEMOGLOBIN 30.3 pg (27.0-33.0); MEAN CORPUSCULAR HGB CONC 33.2 g/dL (32.0-36.0); MEAN CORPUSCULAR VOLUME 91.2 fL (79-99); MONOCYTES % (AUTO) 7.4 % (3.0-13.0); NEUTROPHILS % (AUTO) 64.9 % (40.0-77.0); PLATELET COUNT (AUTO) 177 K/uL (130-400); RED BLOOD CELL COUNT(AUTO) 4.22 MIL/uL (4.50-6.20); WHITE BLOOD COUNT (AUTO) 4.9 K/uL (4.8-10.8)
[2022-12-01 13:57] LABS: CREATININE 0.9 mg/dL (0.5-1.5); POTASSIUM 4.2 mmol/L (3.5-5.1)
[2022-12-01 14:27] LABS: INR 0.93 (0.85-1.15); PROTHROMBIN TIME 9.9 SEC (9.6-11.6)
[2022-12-01 14:29] LABS: PARTIAL THROMBOPLASTIN TIME 27.9 SEC (26.3-35.5)
== END | disposition home or self-care (01) ==
LOC: LAB 09:00
PROVIDERS: ATTEND Internal Medicine Cardiovascular Disease
DX: I10 Essential (primary) hypertension (principal); I25.110 Atherosclerotic heart disease of native coronary artery with unstable angina pectoris; E78.5 Hyperlipidemia, unspecified
CPT/HCPCS: 36415; 80048; 85025; 85610; 85730

== ENCOUNTER → 2024-02-11 | Outpatient (CLI) | payer MEDICAID ==
[~2024-02-11] MED LIST changes: +AMOX1TAB16 PO; -ATOR40TA69 PO; -CEFU500T67 PO; -DOXY100C5 PO; -GABA-531 PO; +GABA600T10 PO; +GLIM4TAB36 PO; -GLIP10TA9 PO; -LEVO75 PO; +LEVO88CA4 PO; +MELO5CAP3 PO; +PANT40TA55 PO; +SEMA0.258 SQ; +SEMA3TAB4 PO
== END | disposition home or self-care (01) ==
LOC: SHCH 08:37
PROVIDERS: ATTEND Internal Medicine Cardiovascular Disease
DX: I87.1 Compression of vein (principal); I87.2 Venous insufficiency (chronic) (peripheral)
CPT/HCPCS: 93970

== ENCOUNTER → 2024-05-20 | Outpatient (CLI) | payer MEDICAID | END | disposition home or self-care (01) | LOC: SHCH 08:06 | PROVIDERS: ATTEND Internal Medicine Cardiovascular Disease | DX: I70.293 Other atherosclerosis of native arteries of extremities, bilateral legs (principal) | CPT/HCPCS: 93925 ==

== ENCOUNTER → 2024-05-23 | Outpatient (CLI) | payer MEDICAID ==
[2024-05-23] MEDS: REGADENOSON 0.4 MG/5 ML PF SYG IVP ONE (12:12)
== END | disposition home or self-care (01) ==
LOC: SHCH 08:06
PROVIDERS: ATTEND Internal Medicine Cardiovascular Disease
DX: I51.7 Cardiomegaly (principal); R06.09 Other forms of dyspnea; R60.9 Edema, unspecified; R05.9 Cough, unspecified; R07.9 Chest pain, unspecified; I25.42 Coronary artery dissection; I67.9 Cerebrovascular disease, unspecified
CPT/HCPCS: 78452; 96374; 93017; J2785; A9500 ×2

== ENCOUNTER → 2024-05-29 | Outpatient (CLI) | payer MEDICAID | END | disposition home or self-care (01) | LOC: SHCH 08:12 | PROVIDERS: ATTEND Internal Medicine Cardiovascular Disease | DX: R06.09 Other forms of dyspnea (principal); R60.9 Edema, unspecified | CPT/HCPCS: 93306 ==

== ENCOUNTER 2025-07-24 23:36 | Inpatient (IN) | payer MEDICAID ==
[~2025-07-24] VITALS: Ht 172.7 cm; Wt 130.2 kg
[~2025-07-24 23:36] MED LIST changes: -AMLO-258 PO; -AMOX1TAB16 PO; -CHOL200013 PO; +DOXY100T2 PO; +EMPA25TA PO; +ESCI-8 PO; +FAMO40TA7 PO; +FURO20TA4 PO; +GABA-1405 PO; -GABA600T10 PO; +INSU100I72; -INSU100V12 SQ; +ISOS30TA92 PO; +LEVO75 PO; +LEVO750T90 PO; -LEVO88CA4 PO; +LOSA50TA64 PO; -MELO5CAP3 PO; -METF-446 PO; -NITR0.4T SL; +PRAV20TA59 PO; -SEMA0.258 SQ; -SEMA3TAB4 PO; +SUCR1TAB2 PO; +TOPI-97 PO
--- NOTE | 2025-07-24 23:43 | NUR ---
ROSC OBTAINED, REPORT FROM EMS OBTAINED UPON ARRIVAL. PER FAMILY, PATIENT WAS JUST DISCHARGED FROM HOSPITAL TODAY, PATIENT WAS AAOX3 WHEN FAMILY LEFT HOUSE, RETURNED 3 HOURS LATER AND FOUND PATIENT UNRESPONSIVE AND NOT BREATHING. EMS ARRIVED ON SCENE AND INITIATED CPR AT 2252, PRIOR TO ARRIVAL TO ER, EPINEPHRINE 7 MG AND ATROPINE 300 MG WERE ADMINISTERED, INTUBATION WAS PERFORMED, PATIENT WAS IN ASYSTOLE CONTINUOUSLY EXCEPT ONE POINT WHERE PATIENT WAS IN V FIB AND 1 SHOCK WAS ADMINISERED, PATIENT WENT BACK INTO ASYSTOLE AFTER THAT. CPR WAS IN PROGRESS UPON ARRIVAL TO ER AND CONTINUED FOLLOWING ACLS PROTOCOL.
[2025-07-24] MEDS: SODIUM BICARB 50MEQ 50ML VIAL 100 ML ONE (23:47)
[2025-07-24 23:52] LABS: ABG BASE EXCESS -22.3 mmol/L (-2.0-3.0); ABG HCO3 13.4 mmol/L (21.0-28.0); ABG OXYGEN SATURATION 94.2 % (94.0-98.0); CARBON MONOXIDE 0.3 % (0.5-1.5); DEVICE COMMENT LR DR; PO2, ARTERIAL BG 123.9 mmHg (83.0-108.0); TEMPERATURE, CELSIUS BG 37.0 CELSIUS (35.5-37.0); VENT MODE, BG AMBUBAG (ROOM AIR)
--- NOTE | 2025-07-24 23:55 | ERN ---
General Chief Complaint: CPR/Full Arrest Stated Complaint: CARDIAC ARREST Time Seen by MD: 23:55 History of Present Illness Initial Comments 55-year-old male found down by family members with no signs of life although still warm. city wellness coordinator were called who found the patient in asystole. They initiated ACLS protocol and brought the patient to [facility] emergency room. On route the patient received 7 mg of epinephrine and 300 mg of amiodarone. At 1 point the patient's cardiac rhythm appeared to be VFib and he was shocked once and give it the amiodarone. All other pulse checks and rhythm checks revealed asystole. Patient was brought to the emergency room and ACLS protocol was initiated. Patient was given three amps of sodium bicarb 2 mg of epinephrine 1 g of calcium. Surprisingly the patient had ROSC, but no signs of neurologic activity. Patient has a fixed and dilated pupils, no corneal reflexes, no gag reflex, no reaction to noxious stimuli. ABG drawn during code showed an extremely low PH with a very high pCO2 in patient's minute ventilation was driven up to greater than 12. Discussing the patient's condition with family members they would like the patient to be full code. Post resuscitation labs showed normal EKG and a normal troponin. Discussing the case with Cardiology we proceeded with hypothermia protocol. Per cardiology recommendations we will get a UDS, head CT, PE scan, and also scan his chest abdomen and pelvis. Of note patient was discharged from this hospital two day after being admitted for suspected bronchitis. During his hospital stay cardiology saw him and he was diagnosed with nonischemic cardiomyopathy with improved left ventricular ejection fraction of 50-55%. Allergies: Uncoded Allergies: FISH (Allergy, Intermediate, HIVES, 02/08/17) PEANUTS (Allergy, Intermediate, RASHES, HIVES, 02/08/17) Home Meds Active Scripts Losartan Potassium (Losartan Potassium) 50 Mg Tablet, 1 TAB PO BID for 30 Days, #60 TAB 0 Refills Prov:MARTHA KAUFMAN MD 07/24/25 Doxycycline Hyclate (Doxycycline Hyclate) 100 Mg Tablet, 1 TAB PO BID for 10 Days, #20 TAB 0 Refills Prov:MARTHA KAUFMAN MD 07/24/25 Levofloxacin (Levofloxacin) 750 Mg Tablet, 1 TAB PO DAILY for 10 Days, #10 TAB 0 Refills Prov:MARTHA KAUFMAN MD 07/24/25 Pantoprazole Sodium (Protonix) 40 Mg Ectab, 40 MG PO DAILY for 30 Days, #30 TAB.EC Prov:JASPER NELSON 11/14/23 Metoprolol Tartrate (Lopressor) 25 Mg Tab, 25 MG PO BID for 30 Days, #60 TAB 0 Refills Prov:MARIELENA AUSTIN MD 06/21/21 Reported Medications Insulin Degludec (Insulin Degludec Pen (U-100)) 100 Unit/Ml (3 Ml) Insuln.pen, 30 UNITS BID 07/22/25 Levothyroxine Sodium (Levothroid/Synthroid) 75 Mcg Tab, 1 TAB PO DAILY 07/22/25 Pravastatin Sodium (Pravastatin Sodium) 20 Mg Tablet, 1 TAB PO DAILY 07/22/25 Escitalopram Oxalate (Escitalopram Oxalate) 10 Mg Tablet, 1 TAB PO DAILY for 30 Days, #30 TAB 0 Refills 07/22/25 Empagliflozin (Jardiance) 25 Mg Tablet, 1 TAB PO DAILY 07/22/25 Famotidine (Famotidine) 40 Mg Tablet, 1 TAB PO DAILY 07/22/25 Topiramate (Topiramate) 50 Mg Tablet, 1 TAB PO BID 07/22/25 Sucralfate (Sucralfate) 1 Gram Tablet, 1 TAB PO BID 07/22/25 Furosemide (Furosemide) 20 Mg Tablet, 1 TAB PO DAILY 07/22/25 Isosorbide Mononitrate (Isosorbide Mononitrate ER) 30 Mg Tab.er.24h, 1 TAB PO DAILY 07/22/25 Glimepiride (Glimepiride) 4 Mg Tablet, 4 MG PO DAILYBKFST, TAB 11/09/23 Gabapentin (Gabapentin) 600 Mg Tablet, 600 MG PO HS, TAB 11/09/23 Aspirin (ASPIRIN 81 MG ECTAB) 81 Mg Ectab, 81 MG PO DAILY, TAB.EC 08/13/22 Clopidogrel Bisulfate (Clopidogrel) 75 Mg Tablet, 75 MG PO DAILY, TAB 09/04/20 Discontinued Reported Medications Semaglutide (Rybelsus) 3 Mg Tablet, 3 MG PO DAILY, TAB 11/09/23 Semaglutide (Ozempic) 0.25 Mg/0.368 Ml Pen.injctr, 0.5 MG SQ QWEEK 11/09/23 Insulin Detemir (Levemir) 100 Unit/Ml Vial, 20 UNIT SQ AM, VIAL 11/09/23 Meloxicam, Submicronized (Meloxicam) 5 Mg Capsule, 15 MG PO DAILY, CAP 11/09/23 Levothyroxine Sodium (Levothyroxine) 88 Mcg Capsule, 88 MCG PO AM, CAP 11/09/23 Metformin HCl (Metformin HCl) 1,000 Mg Tablet, 1000 MG PO BIDMEALS, TAB 09/04/20 Cholecalciferol (Vitamin D3) (Vitamin D3) 2,000 Unit Capsule, 2000 UNIT PO DAILY, CAP 06/17/19 Discontinued Scripts Amoxicillin/Potassium Clav (Amox Tr-K Clv 875-125 mg Tab) 875 Mg-125 Mg Tablet, 1 EACH PO BID for 5 Days, #10 TAB Prov:JASPER NELSONP 11/14/23 Amlodipine Besylate (Amlodipine Besylate) 10 Mg Tablet, 10 MG PO DAILY for 30 Days, #30 TAB 0 Refills Prov:MARIELENA AUSTIN MD 06/21/21 Nitroglycerin (Nitrostat) 0.4 Mg Tab.subl, 0.4 MG SL [id number] MAX PRN for CHEST PAIN for 30 Days, #30 TAB.SL Prov:ASPEN BRAR Jr., MD 06/20/19 Past Medical History Past Medical History: CAD, Diabetes-Type II, High Cholesterol, Heart Disease, Hypertension Medical History Other: ascitis, cardiomyopathy Past Surgical History: Appendectomy, Cholecystectomy Surgical History Other: STENTS TO LEG , Family History Family History: Negative Social History Social History: Negative ROS Dictation Unable to obtain review of systems patient intubated and unresponsive. Physical Exam General Appearance: (+) no apparent distress Orientation Comment Patient to abated nonreactive. Head/Face Trauma: No Eyes Comment Pupils fixed dilated and on moving. Corneal reflexes negative Respiratory: (+) chest non-tender, (+) lungs clear, (+) well ventilated Heart: (+) regular, (+) no gallop Gastrointestinal: (+) soft, (+) bowel sound absent Results Laboratory and Microbiology Lab and Micro Result Laboratory Tests Test 07/24/25 23:50 07/24/25 23:53 07/24/25 23:54 07/24/25 23:56 Blood Gas Specimen Type Arterial Arterial Blood pH 6.760 (7.350-7.450) Arterial Blood Partial Pressure CO2 97 mmHg (35-48) *H Arterial Blood Partial Pressure O2 123.9 mmHg (83.0-108.0) H Arterial Blood HCO3 13.4 mmol/L (21.0-28.0) L Arterial Blood Oxygen Saturation 94.2 % (94.0-98.0) Arterial Blood Base Excess -22.3 mmol/L (-2.0-3.0) L Hemoglobin (Blood Gas) 10.9 g/dL (13.5-17.5) L Sodium (Blood Gas) 139 MMOL/L (136-145) Bedside Potassium (Blood Gas) 4.0 MMOL/L (3.4-4.5) Bedside Chloride (Blood Gas) 101 MMOL/L (98-107) Bedside Glucose (Blood Gas) 445 MG/DL (65-95) *H Bedside Ionized Calcium (Blood Gas) 1.43 MMOL/L (1.15-1.33) H Bedside Lactic Acid (Blood Gas) 15.25 MMOL/L (0.36-0.75) *H Blood Gas Temperature 37.0 CELSIUS (35.5-37.0) Blood Gas Flow-by 15.00 L/min (0.00-15.00) Blood Gas Vent Mode AMBUBAG (ROOM AIR) FiO2 100.0 % Blood Gas Specimen Comment LR DR Whole Blood Glucose 317 MG/DL (70-110) #H White Blood Count 10.9 K/uL (4.8-10.8) #H Red Blood Count 3.11 MIL/uL (4.50-6.20) L Hemoglobin 9.4 g/dL (14.0-18.0) L Hematocrit 31.0 % (42-54) L Mean Corpuscular Volume 99.7 fL (79-99) H Mean Corpuscular Hemoglobin 30.2 pg (27.0-33.0) Mean Corpuscular Hemoglobin Concent 30.3 g/dL (32.0-36.0) L Red Cell Distribution Width 14.0 % (11.0-15.5) Platelet Count 127 K/uL (130-400) L Mean Platelet Volume 10.9 fL (7.5-10.5) H Immature Granulocyte % (Auto) 6.2 % (0-1) H Neutrophils (%) (Auto) 24.4 % (40.0-77.0) L Lymphocytes (%) (Auto) 59.6 % (21.0-51.0) H Monocytes (%) (Auto) 6.2 % (3.0-13.0) Eosinophils (%) (Auto) 2.8 % (0.0-8.0) Basophils (%) (Auto) 0.8 % (0.0-5.0) Neutrophils # (Auto) 2.7 K/uL (1.8-7.7) Lymphocytes # (Auto) 6.5 K/uL (1.0-4.8) H Monocytes # (Auto) 0.7 K/uL (0.1-1.0) Eosinophils # (Auto) 0.30 K/uL (0.00-0.70) Basophils # (Auto) 0.09 K/uL (0.00-0.20) Absolute Immature Granulocyte (auto 0.67 K/uL (0-1) Nucleated Red Blood Cells 0.6 % (0.0-0.19) H Red Blood Cell Morphology See comments Sodium Level 149 mmol/L (136-145) H Potassium Level 4.9 mmol/L (3.5-5.1) Chloride Level 104 mmol/L (101-111) Carbon Dioxide Level 23 mmol/L (21-32) Blood Urea Nitrogen 31 mg/dL (7-18) H Creatinine 1.7 mg/dL (0.5-1.3) H Glomerular Filtration Rate Calc 46 mL/min (>90) Random Glucose 381 mg/dL (70-105) #H Total Calcium 13.2 mg/dL (8.5-10.1) #*H Magnesium Level 2.50 mg/dL (1.80-2.40) H Total Bilirubin 0.3 mg/dL (0.2-1.0) # Aspartate Amino Transf (AST/SGOT) 97 U/L (10-37) H Alanine Aminotransferase (ALT/SGPT) 93 U/L (12-78) #H Alkaline Phosphatase 154 U/L (50-136) #H Total Creatine Kinase 210 U/L (21-232) # Troponin I High Sensitivity 12.9 ng/L (4-75) Total Protein 5.5 g/dL (6.0-8.3) L Albumin 1.9 g/dL (3.5-5.0) L Urine Color LIGHT-YELLOW (YELLOW) Urine Appearance CLEAR (CLEAR) Urine pH 6.5 (5.0-8.0) Urine Specific [place] 1.021 (1.001-1.031) Urine Protein 100 mg/dL (NEGATIVE) H Urine Glucose (UA) >=1000 mg/dL (NEGATIVE) H Urine Ketones NEGATIVE mg/dL (NEGATIVE) Urine Occult Blood +- (TRACE) (NEGATIVE) H Urine Nitrate NEGATIVE (NEGATIVE) Urine Bilirubin NEGATIVE mg/dL (NEGATIVE) Urine Urobilinogen 0.2 mg/dL (0.2-1.0) Urine Leukocyte Esterase NEGATIVE Shayne/uL Urine RBC 2-5 /HPF (0-1) H Urine WBC 2-5 /HPF (0-1) H Urine Squamous Epithelial Cells RARE /HPF (0-2) Urine Bacteria RARE /HPF (None Seen) MDM MDM: Differential diagnosis: Acute [place], PE, stroke, Rationale: Tests considered and ordered secondary to shared decision making include: Previous outside records reviewed: Old ER visits. Risk of complication and/or morbidity or mortality of patient management: None Medications-Per medication reconciliation Need for hospitalization: Patient does meet criteria for hospitalization. Need for emergency major/minor surgery: No There are no social concerns with this patient. Prescription drug management Prescriptions will include symptomatic care Patient's prior external medical records from other ER visits were reviewed by me as indicated. Prior testing and results from previous visits were reviewed. Prior tests were taken into account with medical decision making and resource utilization, independent historian/historians were used to obtain complete medical history. I independently interpreted the test that were performed, results were reviewed by me and considered findings on radiology if ordered. I discussed the patient with Cardiology they have agreed to take care of the patient admit him and initiate the hypothermia protocol I have discussed the patient with the hospitalist service and they have agreed to admit the patient. ED Course Orders Procedure Category Date Status Time Sodium Bicarb 50meq PHA 07/24/25 Complete 50ml Vial (Sodium Bi 23:44 Chest 1vw RAD 07/24/25 Resulted 23:47 Cbc With Differential LAB 07/24/25 In Process 23:48 Comprehensive LAB 07/24/25 Complete Metabolic Panel 23:48 Cardiac Panel LAB 07/24/25 Complete 23:48 Arterial Blood Gas + RT 07/24/25 Transmitted 23:48 Magnesium LAB 07/24/25 Complete 23:48 Urinalysis Profile LAB 07/24/25 Complete 23:48 Arterial Blood Gas LAB 07/24/25 Complete Arterial + 23:50 Epinephrine PHA 07/25/25 Complete 1mg/10ml(1:10,000) 00:01 Epinephrine 1 Mg/Ml PHA 07/25/25 Complete 30ml Vial (Epinephri 00:02 Arterial Blood Gas + RT 07/25/25 Transmitted 00:42 12 Lead Ekg Tracing- EKG 07/25/25 Logged Technical 00:50 Drug Screen Urine LAB 07/25/25 Logged 00:50 Ct Head/Brain W/O CT 07/25/25 Logged Contrast 00:50 [address] Chest Pe Protocol CT 07/25/25 Logged Wwo Cont 00:50 Ct Abdomen/Pelvis CT 07/25/25 Logged W/Contrast 00:50 Troponin I High LAB 07/25/25 Logged Sensitivity 00:50 Current Medications Medications (Trade) Dose Ordered Sig/Dwaine Route PRN Reason Start Time Stop Time Status Last Admin Dose Admin Epinephrine HCl (ADRENaline 1MG SYG) 1 mg STK-MED ONCE .ROUTE 07/25/25 00:01 07/25/25 00:01 DC Epinephrine HCl (EPINEPHrine 1 MG/ML 30ML VIAL) 30 mg STK-MED ONCE IJ 07/25/25 00:02 07/25/25 00:02 DC Sodium Bicarbonate 100 ml @ As Directed STK-MED ONCE .ROUTE 07/24/25 23:44 07/24/25 23:44 DC 07/24/25 23:47 Vital Signs Date Time Temp Pulse Resp B/P (MAP) Pulse Ox O2 Delivery O2 Flow Rate FiO2 07/25/25 00:24 94 100 DX & DISP Disposition: Inpatient Departure Impression: Primary Impression: Acute [place] Additional Impressions: CAD (coronary artery disease), Cardiomyopathy Condition: Stable Referrals: GAUDENCIO ROSSI PA-C (PCP) JOAN LEO MD Jul 24, 2025 23:55
[2025-07-25] VITALS (43 sets, daily range): BP systolic 19–164; BP diastolic 18–96; PULSE 48–109; RESP 6–25; TEMP 96.8; O2SAT 88–100
[2025-07-25 00:08] LABS: IMMATURE GRANULOCYTE ABSOLUTE 0.67 K/uL (0-1); NUCLEATED RED BLOOD CELLS 0.6 % (0.0-0.19); PLATELET COUNT (AUTO) 127 K/uL (130-400); RED BLOOD CELL COUNT(AUTO) 3.11 MIL/uL (4.50-6.20); RED CELL DISTRIBUTION WIDTH 14.0 % (11.0-15.5); WHITE BLOOD COUNT (AUTO) 10.9 K/uL (4.8-10.8)
[2025-07-25 00:10] LABS: ADD UA MICROSCOPIC YES; APPEARANCE,URINE CLEAR (CLEAR); GLUCOSE, URINE (UA) >=1000 mg/dL (NEGATIVE); LEUKOCYTE ESTERASE ,URINE NEGATIVE Leu/uL (NEGATIVE); NITRATE,URINE NEGATIVE (NEGATIVE); OCCULT BLOOD,URINE +- (TRACE) (NEGATIVE)
[2025-07-25 00:12] LABS: SQUAMOUS EPITHELIAL CELL,UR RARE /HPF (0-2)
[2025-07-25 00:24] LABS: ASPARTATE AMINOTRANSFERASE 97.0 U/L (10-37); CREATINE KINASE, TOTAL 210.0 U/L (21-232); CREATININE 1.7 mg/dL (0.5-1.3); GLOMERULAR FILTR. RATE CALC 46.0 mL/min (>90); GLUCOSE,RANDOM 381.0 mg/dL (70-105); SODIUM SERUM 149.0 mmol/L (136-145); TOTAL PROTEIN, SERUM 5.5 g/dL (6.0-8.3); UREA NITROGEN, BLOOD 31.0 mg/dL (7-18)
--- NOTE | 2025-07-25 00:52 | HMCIMG ---
EXAM: CR Chest, 1 view CLINICAL HISTORY: Cardiac arrest. COMPARISON: Chest radiograph dated 07/22/2025. FINDINGS: The endotracheal tube tip is 1.6 cm above the therese. Moderate cardiomegaly. Poor inspiratory effort. Otherwise, the lungs are clear. The left CP angle is excluded from the image. No large pleural effusion or pneumothorax. No acute osseous abnormality. IMPRESSION: The endotracheal tube tip is 1.6 cm above the therese. Moderate cardiomegaly with mild interval worsening. /[place]
--- NOTE | 2025-07-25 01:23 | EKG ---
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
--- NOTE | 2025-07-25 01:36 | NUR ---
hypothermia protocol initiated
[2025-07-25 01:42] LABS: ABG BASE EXCESS -12.7 mmol/L (-2.0-3.0); ABG HCO3 12.6 mmol/L (21.0-28.0); ABG OXYGEN SATURATION 97.1 % (94.0-98.0); ABG PCO2 28 mmHg (35-48); ABG PH 7.277 (7.350-7.450); CARBON MONOXIDE 0.3 % (0.5-1.5); PO2, ARTERIAL BG 104.3 mmHg (83.0-108.0); TEMPERATURE, CELSIUS BG 37.0 CELSIUS (35.5-37.0); VENT MODE, BG AC (ROOM AIR)
--- NOTE | 2025-07-25 01:54 | HP ---
[facility] HISTORY AND PHYSICAL Date of Service: Jul 25, 2025 Time of Service: 01:54 PCP:Fito MONTOYA HISTORY OF PRESENT ILLNESS: This is a 55-year-old male with past medical history of morbid obesity, hypertension, hyperlipidemia, type 2 diabetes, CVA with right-sided weakness, nonobstructive Coronary artery disease with cardiomyopathy, chloride chronic lower extremity venous insufficiency history of venous stent who was brought by ambulance to the ED with ongoing chest compression with a mechanical device patient was given rounds of CPR and cardiac meds ,ROSC achieved in the ER .Patient was orally intubated en route. Daughter Tirso was at bedside during my evaluation who states patient was recently admitted on 07/22/2025 in this hospital for complaints of pleuritic chest pain and was diagnosed with acute bronchitis and patient was also seen by a event crew technician and was diagnosed with ischemic cardiomyopathy with improved left ventricular ejection fraction of 50- 55% .Patient was discharged home yesterday,as per daughter patient was doing fine initially at home when she left him patient was in bed and when she came back the patient was unresponsive and still in bed.As per daughter patient had no pulse and was not breathing so she did CPR and ambulance was called,as per daughter she did not know what happened and how long has he been pulseless but he was still warm she said. Seen and examined patient int he ED orally intubated and on Epinephrine drip and hypothermic protocol initiated by ER.Patient remained full code per family request. Latest vital signs temperature 96.6, heart rate 85, respiration 24, blood pressure 93/58 saturation 98% on FiO2 of 100%. Labs: WBC 10 5th, hemoglobin 9, hematocrit 31, platelet count 127. Sodium 149, BUN 31, creatinine 1.7, GFR 46, glucose 381, total calcium 13, magnesium 2.5 AST 97, ALT 93, alkaline phosphatase 154 total protein 0.5 albumin 1.9. Troponin 12 to 1673. Urine toxicology negative. Chest x-ray result revealed the endotracheal tip is 1.6 cm above the therese. Moderate cardiomegaly with mild interval worsening. ECG result revealed sinus rhythm heart rate 87 with left ventricular hypertrophy. CT abdomen and pelvis with contrast, CT chest PE protocol CT brain without contrast still pending to be done at this time. As per ER ,he spoke to cardiology recreation attendant already.Will admit patient to ICU for further medical management REVIEW OF SYSTEMS unable to perform patient is was post arrest orally intubated and on mechanical ventilation PAST MEDICAL HISTORY: [Morbid obesity, hypertension, hyperlipidemia, diabetes type 2, CVA with residual right-sided weakness, nonobstructive Coronary artery disease with cardiomyopathy, chronic lower extremity venous insufficiency with venous stent ] PAST SURGICAL HISTORY: [ Status post right external iliac and right common femoral vein stent 12/11/2021 and status post bilateral saphenous vein ablation procedure July 2022, cholecystectomy, right knee repair, bilateral cataract surgery appendectomy 2023 . ] PAST SOCIAL HISTORY: [Former smoker rare alcohol consumption and denies illicit drug use ] FAMILY HISTORY: [Hypertension, diabetes, cardiovascular disease and liver cirrhosis] Uncoded Allergies: FISH (Allergy, Intermediate, HIVES, 02/08/17) PEANUTS (Allergy, Intermediate, RASHES, HIVES, 02/08/17) PHYSICAL EXAM GENERAL APPEARANCE: Orally intubated on mechanical ventilation NEUROLOGICAL: Unresponsive HEENT: nonreactive CHEST: Normal chest expansion. Telemetry. LUNGS: Diminished breath sounds CARDIOVASCULAR: Regular. S1 and S2 normal. No appreciable rubs, murmurs or gallops. ABDOMEN: Obese + OGT to low intermittent suction : Deferred. +Ludwig .Hypothermia device in progress EXTREMITIES: Non-edematous and not cyanotic. No clubbing. Good capillary refill. SKIN: No skin breakdown. Vital Sign (Last 24 Hours) 07/25/25 00:24 Pulse 94 FiO2 100 LABS: Laboratory: Test 07/25/25 01:41 07/25/25 01:12 07/24/25 23:56 07/24/25 23:54 Range/Units Blood Gas Specimen Type Arterial Arterial Blood pH 7.277 L 7.350-7.450 Arterial Blood Partial Pressure CO2 28 L 35-48 mmHg Arterial Blood Partial Pressure O2 104.3 83.0-108.0 mmHg Arterial Blood HCO3 12.6 L 21.0-28.0 mmol/L Arterial Blood Oxygen Saturation 97.1 94.0-98.0 % Arterial Blood Base Excess -12.7 L -2.0-3.0 mmol/L Hemoglobin (Blood Gas) 12.2 L 13.5-17.5 g/dL Sodium (Blood Gas) 138 136-145 MMOL/L Bedside Potassium (Blood Gas) 4.0 3.4-4.5 MMOL/L Bedside Chloride (Blood Gas) 103 98-107 MMOL/L Bedside Glucose (Blood Gas) 417 *H 65-95 MG/DL Bedside Ionized Calcium (Blood Gas) 1.15 1.15-1.33 MMOL/L Bedside Lactic Acid (Blood Gas) 9.71 *H 0.36-0.75 MMOL/L Blood Gas Temperature 37.0 35.5-37.0 CELSIUS Blood Gas Respiration Rate 30.0 min. Blood Gas Vent Mode AC ROOM AIR FiO2 100.0 % Blood Gas Tidal Volume 500 ml Blood Gas PEEP 5 cm H2O Blood Gas Specimen Comment LR DR L Troponin I High Sensitivity 1673 *H 4-75 ng/L Urine Color LIGHT-YELLOW YELLOW Urine Appearance CLEAR CLEAR Urine pH 6.5 5.0-8.0 Urine Specific [place] 1.021 1.001-1.031 Urine Protein 100 H NEGATIVE mg/dL Urine Glucose (UA) >=1000 H NEGATIVE mg/dL Urine Ketones NEGATIVE NEGATIVE mg/dL Urine Occult Blood +- (TRACE) H NEGATIVE Urine Nitrate NEGATIVE NEGATIVE Urine Bilirubin NEGATIVE NEGATIVE mg/dL Urine Urobilinogen 0.2 0.2-1.0 mg/dL Urine Leukocyte Esterase NEGATIVE NEGATIVE Shayne/uL Urine RBC 2-5 H 0-1 /HPF Urine WBC 2-5 H 0-1 /HPF Urine Squamous Epithelial Cells RARE 0-2 /HPF Urine Bacteria RARE None Seen /HPF White Blood Count 10.9 #H 4.8-10.8 K/uL Red Blood Count 3.11 L 4.50-6.20 MIL/uL Hemoglobin 9.4 L 14.0-18.0 g/dL Hematocrit 31.0 L 42-54 % Mean Corpuscular Volume 99.7 H 79-99 fL Mean Corpuscular Hemoglobin 30.2 27.0-33.0 pg Mean Corpuscular Hemoglobin Concent 30.3 L 32.0-36.0 g/dL Red Cell Distribution Width 14.0 11.0-15.5 % Platelet Count 127 L 130-400 K/uL Mean Platelet Volume 10.9 H 7.5-10.5 fL Immature Granulocyte % (Auto) 6.2 H 0-1 % Neutrophils (%) (Auto) 24.4 L 40.0-77.0 % Lymphocytes (%) (Auto) 59.6 H 21.0-51.0 % Monocytes (%) (Auto) 6.2 3.0-13.0 % Eosinophils (%) (Auto) 2.8 0.0-8.0 % Basophils (%) (Auto) 0.8 0.0-5.0 % Neutrophils # (Auto) 2.7 1.8-7.7 K/uL Lymphocytes # (Auto) 6.5 H 1.0-4.8 K/uL Monocytes # (Auto) 0.7 0.1-1.0 K/uL Eosinophils # (Auto) 0.30 0.00-0.70 K/uL Basophils # (Auto) 0.09 0.00-0.20 K/uL Absolute Immature Granulocyte (auto 0.67 0-1 K/uL Nucleated Red Blood Cells 0.6 H 0.0-0.19 % Red Blood Cell Morphology See comments Sodium Level 149 H 136-145 mmol/L Potassium Level 4.9 3.5-5.1 mmol/L Chloride Level 104 101-111 mmol/L Carbon Dioxide Level 23 21-32 mmol/L Blood Urea Nitrogen 31 H 7-18 mg/dL Creatinine 1.7 H 0.5-1.3 mg/dL Glomerular Filtration Rate Calc 46 >90 mL/min Random Glucose 381 #H 70-105 mg/dL Total Calcium 13.2 #*H 8.5-10.1 mg/dL Magnesium Level 2.50 H 1.80-2.40 mg/dL Total Bilirubin 0.3 # 0.2-1.0 mg/dL Aspartate Amino Transf (AST/SGOT) 97 H 10-37 U/L Alanine Aminotransferase (ALT/SGPT) 93 #H 12-78 U/L Alkaline Phosphatase 154 #H 50-136 U/L Total Creatine Kinase 210 # 21-232 U/L Total Protein 5.5 L 6.0-8.3 g/dL Albumin 1.9 L 3.5-5.0 g/dL Test 07/24/25 23:53 07/24/25 23:50 Range/Units Whole Blood Glucose 317 #H 70-110 MG/DL Blood Gas Flow-by 15.00 0.00-15.00 L/min DIAGNOSTICS / RADIOLOGY: [ ] ASSESSMENT: Acute IA POA S/P Cardiopulmonary arrest (unknown downtime ) POA Acute respiratory Failure orally intubated on mechanical ventilation POA Anemia POA Acute Kidney injury POA Uncontrolled Diabetes POA Transaminitis POA Severe protein malnutrition POA Morbid obesity POA Hypertension POA Hyperlipidemia PLAN: We will admit patient in ICU Keep patient nothing by mouth Continue epinephrine drip for BP support Continue hypothermia protocol We will start NS @ 75 ml/ hr x2 bags and re evaluate We will start on Protonix 40 mg IV daily for GI prophylaxis We will replace electrolytes as needed per protocol We will start on insulin sliding scale AC & HS with hypoglycemia protocol We will add prn medication for fever,pain,cough , nausea and vomiting We will reconcile home meds once medlist available We will trend troponin [id number] Cardiology recreation attendant consulted Critical care consulted and pending recommendation Follow-up CT abdomen and pelvis with contrast, CT chest PE protocol with and without contrast, CT head brain without contrast, echo and abdominal ultrasound results We will request labs in am Further orders to follow depending on above results Case discussed with attending physician and came up with above treatment and plan of care. ADVANCED CARE PLANNING 1. Which of the following were discussed? Hospice Care - No Therapeutic options - Yes Advance Directives - NO Other discussions - 2. Discussed with who? Daughters 3. Voluntary nature of this service was explained to the patient? Yes 4. Amount of time spent - ____32 min___ 5. Reviewed by Physician? (if this service was performed by NPP) Yes Patient seen and examined by me. Agree with note by PATIENT SERVICE COORDINATOR SEE ADDITIONAL ORDERS PER CHART DISCUSSED WITH NURSING STAFF Discussed with patient's daughter his grave state and the family is currently withdrawing care. I attest that I evaluated the patient with the mid level and that I was physically present for the piña points of service. I reviewed and discussed the case with her and made modifications to her findings and plan of care as documented above. JUAN CARLOS VILLA Jul 25, 2025 01:54 DIOMEDES MERINO MD Jul 25, 2025 10:17
[2025-07-25 01:56] LABS: IMMATURE GRANULOCYTE ABSOLUTE 0.36 K/uL (0-1); NUCLEATED RED BLOOD CELLS 0.7 % (0.0-0.19); PLATELET COUNT (AUTO) 191 K/uL (130-400); RED BLOOD CELL COUNT(AUTO) 4.49 MIL/uL (4.50-6.20); RED CELL DISTRIBUTION WIDTH 13.9 % (11.0-15.5); WHITE BLOOD COUNT (AUTO) 11.7 K/uL (4.8-10.8)
[2025-07-25 02:05] LABS: CREATININE 1.9 mg/dL (0.5-1.3); GLOMERULAR FILTR. RATE CALC 41.0 mL/min (>90); GLUCOSE,RANDOM 332.0 mg/dL (70-105); SODIUM SERUM 144.0 mmol/L (136-145); UREA NITROGEN, BLOOD 33.0 mg/dL (7-18)
[2025-07-25 02:10] LABS: ASPARTATE AMINOTRANSFERASE 253.0 U/L (10-37); TOTAL PROTEIN, SERUM 7.0 g/dL (6.0-8.3)
[2025-07-25 02:10] LABS: AMPHET/METH SCREEN,URINE NEGATIVE (NEGATIVE); BARBITURATE SCREEN, URINE NEGATIVE (NEGATIVE); CANNABINOID SCREEN,URINE NEGATIVE (NEGATIVE); COCAINE SCREEN,URINE NEGATIVE (NEGATIVE)
--- NOTE | 2025-07-25 02:15 | NUR ---
TRIPLE LUMEN CENTRAL VENOUS CATHETER INSERTED TO R GROIN BY DR LEO, ATERIAL LINE TO R GROIN INSERTED BY DR LEO, ALL PORTS FLUSHE EASILY WITH 10 ML NS
[2025-07-25] MEDS: 0.9%NACL 1000ML 1,000 ML IV SCH (02:32)
--- NOTE | 2025-07-25 02:34 | ERN ---
CODEBLUE/INTUBATION/PROCEDURE DATE: 07/25/25 Patient arrived getting active chest compressions with a mechanical device. Patient was transferred over to the hospital bed in the [facility] [place]. He was already intubated. We resumed chest compressions after 2 minutes patient's vital signs showed PA arrest we gave him a mg of epinephrine three amps of s odium bicarb and a g of calcium. We will resume chest compressions for two more minutes at that point we achieved ROSC. An epinephrine drip was started to maintain the patient's blood pressure and heart rate. The total critical care time is listed as 45 minutes because after the time patient received ROSC I spent time getting a chest x-ray showing the ET tube was in the correct place. Looking at the patient's labs his pH was 6.997 as pCO2 was approximately 100. His lactate was high. We resuscitated him more I called the avionics systems repairer for recommendations ordered labs for it troponins and chemistry panels. I also called the hospitalist service to coordinate care. 45 minutes JOAN LEO MD Jul 25, 2025 02:34
--- NOTE | 2025-07-25 02:38 | ERN ---
ED Note History of Present Illness Stated Complaint: S/P CARDIAC ARREST, ACUTE CA Chief Complaint: CPR/Full Arrest Time Seen by MD: 23:55 Dictation: This is a procedure note for placing right femoral a line and right femoral vein triple-lumen catheter. Allergies: Uncoded Allergies: FISH (Allergy, Intermediate, HIVES, 02/08/17) PEANUTS (Allergy, Intermediate, RASHES, HIVES, 02/08/17) Home Meds Active Scripts Losartan Potassium (Losartan Potassium) 50 Mg Tablet, 1 TAB PO BID for 30 Days, #60 TAB 0 Refills Prov:MARTHA KAUFMAN MD 07/24/25 Doxycycline Hyclate (Doxycycline Hyclate) 100 Mg Tablet, 1 TAB PO BID for 10 Days, #20 TAB 0 Refills Prov:MARTHA KAUFMAN MD 07/24/25 Levofloxacin (Levofloxacin) 750 Mg Tablet, 1 TAB PO DAILY for 10 Days, #10 TAB 0 Refills Prov:MARTHA KAUFMAN MD 07/24/25 Pantoprazole Sodium (Protonix) 40 Mg Ectab, 40 MG PO DAILY for 30 Days, #30 TAB.EC Prov:JASPER NELSON AGACN 11/14/23 Metoprolol Tartrate (Lopressor) 25 Mg Tab, 25 MG PO BID for 30 Days, #60 TAB 0 Refills Prov:MARIELENA AUSTIN MD 06/21/21 Reported Medications Insulin Degludec (Insulin Degludec Pen (U-100)) 100 Unit/Ml (3 Ml) Insuln.pen, 30 UNITS BID 07/22/25 Levothyroxine Sodium (Levothroid/Synthroid) 75 Mcg Tab, 1 TAB PO DAILY 07/22/25 Pravastatin Sodium (Pravastatin Sodium) 20 Mg Tablet, 1 TAB PO DAILY 07/22/25 Escitalopram Oxalate (Escitalopram Oxalate) 10 Mg Tablet, 1 TAB PO DAILY for 30 Days, #30 TAB 0 Refills 07/22/25 Empagliflozin (Jardiance) 25 Mg Tablet, 1 TAB PO DAILY 07/22/25 Famotidine (Famotidine) 40 Mg Tablet, 1 TAB PO DAILY 07/22/25 Topiramate (Topiramate) 50 Mg Tablet, 1 TAB PO BID 07/22/25 Sucralfate (Sucralfate) 1 Gram Tablet, 1 TAB PO BID 07/22/25 Furosemide (Furosemide) 20 Mg Tablet, 1 TAB PO DAILY 07/22/25 Isosorbide Mononitrate (Isosorbide Mononitrate ER) 30 Mg Tab.er.24h, 1 TAB PO DAILY 07/22/25 Glimepiride (Glimepiride) 4 Mg Tablet, 4 MG PO DAILYBKFST, TAB 11/09/23 Gabapentin (Gabapentin) 600 Mg Tablet, 600 MG PO HS, TAB 11/09/23 Aspirin (ASPIRIN 81 MG ECTAB) 81 Mg Ectab, 81 MG PO DAILY, TAB.EC 08/13/22 Clopidogrel Bisulfate (Clopidogrel) 75 Mg Tablet, 75 MG PO DAILY, TAB 09/04/20 Discontinued Reported Medications Semaglutide (Rybelsus) 3 Mg Tablet, 3 MG PO DAILY, TAB 11/09/23 Semaglutide (Ozempic) 0.25 Mg/0.368 Ml Pen.injctr, 0.5 MG SQ QWEEK 11/09/23 Insulin Detemir (Levemir) 100 Unit/Ml Vial, 20 UNIT SQ AM, VIAL 11/09/23 Meloxicam, Submicronized (Meloxicam) 5 Mg Capsule, 15 MG PO DAILY, CAP 11/09/23 Levothyroxine Sodium (Levothyroxine) 88 Mcg Capsule, 88 MCG PO AM, CAP 11/09/23 Metformin HCl (Metformin HCl) 1,000 Mg Tablet, 1000 MG PO BIDMEALS, TAB 09/04/20 Cholecalciferol (Vitamin D3) (Vitamin D3) 2,000 Unit Capsule, 2000 UNIT PO DAILY, CAP 06/17/19 Discontinued Scripts Amoxicillin/Potassium Clav (Amox Tr-K Clv 875-125 mg Tab) 875 Mg-125 Mg Tablet, 1 EACH PO BID for 5 Days, #10 TAB Prov:JASPER NELSON 11/14/23 Amlodipine Besylate (Amlodipine Besylate) 10 Mg Tablet, 10 MG PO DAILY for 30 Days, #30 TAB 0 Refills Prov:MARIELENA AUSTIN MD 06/21/21 Nitroglycerin (Nitrostat) 0.4 Mg Tab.subl, 0.4 MG SL [id number] MAX PRN for CHEST PAIN for 30 Days, #30 TAB.SL Prov:ASPEN BRAR Jr., MD 06/20/19 Past Medical History Dictation Procedure notes Past Medical History: CAD, Diabetes-Type II, High Cholesterol, Heart Disease, Hypertension Additional Past Medical Hx: ascitis, cardiomyopathy Surgical History: Appendectomy, Cholecystectomy Surgical History Other: STENTS TO LEG, CARDIAC STENTS Family History: Negative Social History: Negative Review of System Dictation Procedure notes Review of Systems: was completed Initial Vital Sign VS Vital Signs Date Time Temp Pulse Resp B/P (MAP) Pulse Ox O2 Delivery O2 Flow Rate FiO2 07/24/25 23:44 97.9 113 12 236/33 96 Ventilator+ 100 Physical Exam Dictation This is a procedure note please see my other progress note for hospital course Results (Laboratory/Radiology) Laboratory/Radiology Laboratory Tests Test 07/24/25 23:50 07/24/25 23:53 07/24/25 23:54 07/24/25 23:56 Blood Gas Specimen Type Arterial Arterial Blood pH 6.760 (7.350-7.450) Arterial Blood Partial Pressure CO2 97 mmHg (35-48) *H Arterial Blood Partial Pressure O2 123.9 mmHg (83.0-108.0) H Arterial Blood HCO3 13.4 mmol/L (21.0-28.0) L Arterial Blood Oxygen Saturation 94.2 % (94.0-98.0) Arterial Blood Base Excess -22.3 mmol/L (-2.0-3.0) L Hemoglobin (Blood Gas) 10.9 g/dL (13.5-17.5) L Sodium (Blood Gas) 139 MMOL/L (136-145) Bedside Potassium (Blood Gas) 4.0 MMOL/L (3.4-4.5) Bedside Chloride (Blood Gas) 101 MMOL/L (98-107) Bedside Glucose (Blood Gas) 445 MG/DL (65-95) *H Bedside Ionized Calcium (Blood Gas) 1.43 MMOL/L (1.15-1.33) H Bedside Lactic Acid (Blood Gas) 15.25 MMOL/L (0.36-0.75) *H Blood Gas Temperature 37.0 CELSIUS (35.5-37.0) Blood Gas Flow-by 15.00 L/min (0.00-15.00) Blood Gas Vent Mode AMBUBAG (ROOM AIR) FiO2 100.0 % Blood Gas Specimen Comment LR DR Whole Blood Glucose 317 MG/DL (70-110) #H White Blood Count 10.9 K/uL (4.8-10.8) #H Red Blood Count 3.11 MIL/uL (4.50-6.20) L Hemoglobin 9.4 g/dL (14.0-18.0) L Hematocrit 31.0 % (42-54) L Mean Corpuscular Volume 99.7 fL (79-99) H Mean Corpuscular Hemoglobin 30.2 pg (27.0-33.0) Mean Corpuscular Hemoglobin Concent 30.3 g/dL (32.0-36.0) L Red Cell Distribution Width 14.0 % (11.0-15.5) Platelet Count 127 K/uL (130-400) L Mean Platelet Volume 10.9 fL (7.5-10.5) H Immature Granulocyte % (Auto) 6.2 % (0-1) H Neutrophils (%) (Auto) 24.4 % (40.0-77.0) L Lymphocytes (%) (Auto) 59.6 % (21.0-51.0) H Monocytes (%) (Auto) 6.2 % (3.0-13.0) Eosinophils (%) (Auto) 2.8 % (0.0-8.0) Basophils (%) (Auto) 0.8 % (0.0-5.0) Neutrophils # (Auto) 2.7 K/uL (1.8-7.7) Lymphocytes # (Auto) 6.5 K/uL (1.0-4.8) H Monocytes # (Auto) 0.7 K/uL (0.1-1.0) Eosinophils # (Auto) 0.30 K/uL (0.00-0.70) Basophils # (Auto) 0.09 K/uL (0.00-0.20) Absolute Immature Granulocyte (auto 0.67 K/uL (0-1) Nucleated Red Blood Cells 0.6 % (0.0-0.19) H Red Blood Cell Morphology See comments Sodium Level 149 mmol/L (136-145) H Potassium Level 4.9 mmol/L (3.5-5.1) Chloride Level 104 mmol/L (101-111) Carbon Dioxide Level 23 mmol/L (21-32) Blood Urea Nitrogen 31 mg/dL (7-18) H Creatinine 1.7 mg/dL (0.5-1.3) H Glomerular Filtration Rate Calc 46 mL/min (>90) Random Glucose 381 mg/dL (70-105) #H Total Calcium 13.2 mg/dL (8.5-10.1) #*H Magnesium Level 2.50 mg/dL (1.80-2.40) H Total Bilirubin 0.3 mg/dL (0.2-1.0) # Aspartate Amino Transf (AST/SGOT) 97 U/L (10-37) H Alanine Aminotransferase (ALT/SGPT) 93 U/L (12-78) #H Alkaline Phosphatase 154 U/L (50-136) #H Total Creatine Kinase 210 U/L (21-232) # Troponin I High Sensitivity 12.9 ng/L (4-75) Total Protein 5.5 g/dL (6.0-8.3) L Albumin 1.9 g/dL (3.5-5.0) L Urine Color LIGHT-YELLOW (YELLOW) Urine Appearance CLEAR (CLEAR) Urine pH 6.5 (5.0-8.0) Urine Specific [place] 1.021 (1.001-1.031) Urine Protein 100 mg/dL (NEGATIVE) H Urine Glucose (UA) >=1000 mg/dL (NEGATIVE) H Urine Ketones NEGATIVE mg/dL (NEGATIVE) Urine Occult Blood +- (TRACE) (NEGATIVE) H Urine Nitrate NEGATIVE (NEGATIVE) Urine Bilirubin NEGATIVE mg/dL (NEGATIVE) Urine Urobilinogen 0.2 mg/dL (0.2-1.0) Urine Leukocyte Esterase NEGATIVE [place]ayne/uL Urine RBC 2-5 /HPF (0-1) H Urine WBC 2-5 /HPF (0-1) H Urine Squamous Epithelial Cells RARE /HPF (0-2) Urine Bacteria RARE /HPF (None Seen) Urine Opiates Screen NEGATIVE (NEGATIVE) Urine Barbiturates Screen NEGATIVE (NEGATIVE) Urine Phencyclidine Screen NEGATIVE (NEGATIVE) Urine Amphetamines Screen NEGATIVE (NEGATIVE) Urine Benzodiazepines Screen NEGATIVE (NEGATIVE) Urine Cocaine Screen NEGATIVE (NEGATIVE) Urine Marijuana (THC) Screen NEGATIVE (NEGATIVE) Test 07/25/25 01:12 07/25/25 01:41 07/25/25 01:51 Troponin I High Sensitivity 1673 ng/L (4-75) *H Blood Gas Specimen Type Arterial Arterial Blood pH 7.277 (7.350-7.450) Arterial Blood Partial Pressure CO2 28 mmHg (35-48) L Arterial Blood Partial Pressure O2 104.3 mmHg (83.0-108.0) Arterial Blood HCO3 12.6 mmol/L (21.0-28.0) L Arterial Blood Oxygen Saturation 97.1 % (94.0-98.0) Arterial Blood Base Excess -12.7 mmol/L (-2.0-3.0) L Hemoglobin (Blood Gas) 12.2 g/dL (13.5-17.5) L Sodium (Blood Gas) 138 MMOL/L (136-145) Bedside Potassium (Blood Gas) 4.0 MMOL/L (3.4-4.5) Bedside Chloride (Blood Gas) 103 MMOL/L (98-107) Bedside Glucose (Blood Gas) 417 MG/DL (65-95) *H Bedside Ionized Calcium (Blood Gas) 1.15 MMOL/L (1.15-1.33) Bedside Lactic Acid (Blood Gas) 9.71 MMOL/L (0.36-0.75) *H Blood Gas Temperature 37.0 CELSIUS (35.5-37.0) Blood Gas Respiration Rate 30.0 min. Blood Gas Vent Mode AC (ROOM AIR) FiO2 100.0 % Blood Gas Tidal Volume 500 ml Blood Gas PEEP 5 cm H2O Blood Gas Specimen Comment LR DR L White Blood Count 11.7 K/uL (4.8-10.8) H Red Blood Count 4.49 MIL/uL (4.50-6.20) #L Hemoglobin 13.6 g/dL (14.0-18.0) #L Hematocrit 43.6 % (42-54) # Mean Corpuscular Volume 97.1 fL (79-99) Mean Corpuscular Hemoglobin 30.3 pg (27.0-33.0) Mean Corpuscular Hemoglobin Concent 31.2 g/dL (32.0-36.0) L Red Cell Distribution Width 13.9 % (11.0-15.5) Platelet Count 191 K/uL (130-400) # Mean Platelet Volume 10.3 fL (7.5-10.5) Immature Granulocyte % (Auto) 3.1 % (0-1) H Neutrophils (%) (Auto) 56.4 % (40.0-77.0) Lymphocytes (%) (Auto) 34.4 % (21.0-51.0) Monocytes (%) (Auto) 4.3 % (3.0-13.0) Eosinophils (%) (Auto) 0.9 % (0.0-8.0) Basophils (%) (Auto) 0.9 % (0.0-5.0) Neutrophils # (Auto) 6.6 K/uL (1.8-7.7) Lymphocytes # (Auto) 4.0 K/uL (1.0-4.8) Monocytes # (Auto) 0.5 K/uL (0.1-1.0) Eosinophils # (Auto) 0.11 K/uL (0.00-0.70) Basophils # (Auto) 0.10 K/uL (0.00-0.20) Absolute Immature Granulocyte (auto 0.36 K/uL (0-1) Nucleated Red Blood Cells 0.7 % (0.0-0.19) H Sodium Level 144 mmol/L (136-145) Potassium Level 4.2 mmol/L (3.5-5.1) Chloride Level 103 mmol/L (101-111) Carbon Dioxide Level 16 mmol/L (21-32) L Blood Urea Nitrogen 33 mg/dL (7-18) H Creatinine 1.9 mg/dL (0.5-1.3) H Glomerular Filtration Rate Calc 41 mL/min (>90) Random Glucose 332 mg/dL (70-105) H Total Calcium 9.6 mg/dL (8.5-10.1) # Total Bilirubin 0.7 mg/dL (0.2-1.0) # Aspartate Amino Transf (AST/SGOT) 253 U/L (10-37) H Alanine Aminotransferase (ALT/SGPT) 195 U/L (12-78) #H Alkaline Phosphatase 231 U/L (50-136) #H Total Protein 7.0 g/dL (6.0-8.3) # Albumin 2.3 g/dL (3.5-5.0) #L ED Course ED Course Orders Procedure Category Date Status Time Sodium Bicarb 50meq PHA 07/24/25 Complete 50ml Vial (Sodium Bi 23:44 Chest 1vw RAD 07/24/25 Resulted 23:47 Cbc With Differential LAB 07/24/25 In Process 23:48 Comprehensive LAB 07/24/25 Complete Metabolic Panel 23:48 Cardiac Panel LAB 07/24/25 Complete 23:48 Arterial Blood Gas + RT 07/24/25 Transmitted 23:48 Magnesium LAB 07/24/25 Complete 23:48 Urinalysis Profile LAB 07/24/25 Complete 23:48 Arterial Blood Gas LAB 07/24/25 Complete Arterial + 23:50 Epinephrine PHA 07/25/25 Complete 1mg/10ml(1:10,000) 00:01 Epinephrine 1 Mg/Ml PHA 07/25/25 Complete 30ml Vial (Epinephri 00:02 Arterial Blood Gas + RT 07/25/25 Transmitted 00:42 12 Lead Ekg Tracing- EKG 07/25/25 Complete Technical 00:50 Drug Screen Urine LAB 07/25/25 Complete 00:50 Ct Head/Brain W/O CT 07/25/25 Logged Contrast 00:50 Ct Chest Pe Protocol CT 07/25/25 Logged Wwo Cont 00:50 Ct Abdomen/Pelvis CT 07/25/25 Logged W/Contrast 00:50 Troponin I High LAB 07/25/25 Complete Sensitivity 00:50 Cbc With Differential LAB 07/25/25 Complete 01:37 Comprehensive LAB 07/25/25 Complete Metabolic Panel 01:37 Arterial Blood Gas LAB 07/25/25 Complete Arterial + 01:41 Insulin Regular, PHA 07/25/25 Complete Human 3ml (Humulin R 02:00 Vital Signs(Adult CPOE 07/25/25 Transmitted Hospitalist) 01:45 Daily Weights CPOE 07/25/25 Transmitted 01:45 I&O Q Shift CPOE 07/25/25 Transmitted 01:45 Ondansetron 4mg Inj PHA 07/25/25 In Process (Zofran 4mg Inj) 02:00 Ipratropium/Albuterol PHA 07/25/25 In Process Neb (Duoneb) 02:00 Pulse Ox(Continuous) RT 07/25/25 Transmitted 01:45 Nurse To Enter Home CPOE 07/25/25 Transmitted Medication 01:45 Admit Orders ADM 07/25/25 Transmitted 01:45 Condition: CPOE 07/25/25 Transmitted 01:45 Telemetry Monitoring CPOE 07/25/25 Transmitted 01:45 Activity: Bed Rest CPOE 07/25/25 Transmitted 01:45 Nothing By Mouth DIET 07/25/25 Transmitted Breakfast Apply Scds CPOE 07/25/25 Transmitted 01:45 Critcal Care Consult CONPHYSVC 07/25/25 Transmitted 01:45 Troponin I High LAB 07/25/25 Logged Sensitivity 01:45 Troponin I High LAB 07/25/25 Logged Sensitivity 07:45 Troponin I High LAB 07/25/25 Logged Sensitivity 13:45 Cbc With Differential LAB 07/25/25 Logged 04:00 Comprehensive LAB 07/25/25 Logged Metabolic Panel 04:00 Magnesium LAB 07/25/25 Logged 04:00 Echo 2-D Complete ECHO 07/25/25 Logged 01:45 0.9%Nacl 1000ml (Ns PHA 07/25/25 In Process 1000ml) 02:00 B-Type Natriuretic LAB 07/25/25 Logged Peptide 04:00 *Nursing CPOE 07/25/25 Transmitted Communication: 01:45 12 Lead Ekg Tracing- EKG 07/25/25 Logged Technical 06:00 *Nursing CPOE 07/25/25 Transmitted Communication: 01:54 Creatine Kinase, Total LAB 07/25/25 Logged 04:00 Us Abdominal Complete US 07/25/25 Logged 01:55 *Nursing CPOE 07/25/25 Transmitted Communication: 01:56 Vital Signs Date Time Temp Pulse Resp B/P (MAP) Pulse Ox O2 Delivery O2 Flow Rate FiO2 07/25/25 01:46 79 100 07/25/25 00:24 94 100 07/24/25 23:44 97.9 113 12 236/33 96 Ventilator+ 100 Medical Decision Making MDM Patient had a jain of his vital signs and we are initiating a cooling protocol he needs a triple-lumen catheter and an a line. Procedure Central Line Lumen: triple Central Line Procedure: no betadine prepno sterile drapes appliedno sterile dressing applied Central Line Postion: femoral (R) Complications: none Central Line Post Position: sutured, good blood return Additional Procedures: arterial blood draw Progress Femoral artery was located by palpation and find on L inserted into the femoral artery. Using a Seldinger technique a guidewire was inserted into the femoral artery and then the a line was threaded over the wire into the patient's right femoral artery. We confirmed pulsatile flow. We connected the a line to the monitor. DX & DISP Disposition: Inpatient Departure Impression: Primary Impression: Acute CA Additional Impressions: CAD (coronary artery disease), Cardiomyopathy Condition: Stable Referrals: GAUDENCIO ROSSI PA-C (PCP) JOAN LEO MD Jul 25, 2025 02:38
[2025-07-25 02:54] LABS: ABG PCO2 97 mmHg (35-48); ABG PH 6.760 (7.350-7.450)
--- NOTE | 2025-07-25 03:23 | CONS ---
[facility] CONSULTATION NOTE Date Patient Seen: Jul 25, 2025 Time of Visit: 03:23 Supervising Physician: Dr. Simón Huitron Reason for Consultation: [facility] Primary Care Physician: Attending team: [facility] hospitalist team Outpatient Specialists: Inpatient Consults: BIS, Critical Care team Cardiology PROBLEM LIST: Status post cardiac arrest (unknown time down), POA Hypotension, in need of pressors, POA, septic shock vs cardiogenic shock Acute hypoxemia, r/o anoxic brain (absence of gag reflex and non-reactive pupi ls) Aspiration PNA NSTEMI due to above Severe respiratory acidosis (primary) with secondary metabolic acidosis, POA Acute respiratory failure, requiring oral intubated, on mechanical ventilation POA Acute renal failure, POA, GFR 46 on 07/24/2025 evening, GFR 88 on 07/24/2025 a.m. Severe lactic acidosis, Leukocytosis, POA Electrolyte derangement (hypernatremia, hypercalcemia, hypomagnesemia) Anemia of chronic disease POA Uncontrolled Diabetes POA Transaminitis POA Severe protein calorie malnutrition/hypoalbuminemia POA Morbid obesity POA, BMI 43.6 Hypertension POA Hyperlipidemia HPI: Per report: Mr. Esteves is a 55-year-old male with past medical history of morbid obesity, hypertension, hyperlipidemia, type 2 diabetes, CVA with right- sided weakness, nonobstructive Coronary artery disease with cardiomyopathy, chloride chronic lower extremity venous insufficiency, history of venous stent who presented to [facility] [place] via EMS intubated, with ongoing chest compression with a mechanical device patient was given rounds of CPR and cardiac meds ,ROSC achieved in the ER. [facility] provider reported that the daughter Tirso was at bedside during her evaluation who stated the patient was recently admitted on 07/22/2025 in this hospital for complaints of pleuritic chest pain and was diagnosed with acute bronchitis, and that the patient was also seen by a senior sql dba. The patient was diagnosed with ischemic cardiomyopathy with improved left ventricular ejection fraction of 50-55%. Patient was discharged home yesterday. As per daughter the patient was doing fine initially at home. She left him patient in bed and when she came back the patient was unresponsive and still in bed. As per daughter patient had no pulse and was not breathing, so she did CPR and ambulance was called. As per daughter she did not know what happened and how long has he been pulseless but he was still warm she said. Patient remained full code per family request. Latest vital signs temperature 96.6, heart rate 85, respiration 24, blood pressure 93/58 saturation 98% on FiO2 of 100%. Labs: WBC 10 5th, hemoglobin 9, hematocrit 31, platelet count 127. Sodium 149, BUN 31, creatinine 1.7, GFR 46, glucose 381, total calcium 13, magnesium 2.5 AST 97, ALT 93, alkaline phosphatase 154 total protein 0.5 albumin 1.9. Troponin 12 to 1673. Urine toxicology negative. Chest x-ray result revealed the endotracheal tip is 1.6 cm above the therese. Moderate cardiomegaly with mild interval worsening. ECG result revealed sinus rhythm heart rate 87 with left ventricular hypertrophy. CT abdomen and pelvis with contrast, CT chest PE protocol CT brain without contrast still pending to be done at this time. CXR shows ETT in place and there are bilateral lower lobe infiltrates compatible with aspiration PNA and there is suspicion that the patient might have aspirated at home. ED started a arterial line, central line. The ED physician also placed the patient on Epinephrine drip and hypothermic protocol initiated. ED provider reported that he spoke to cardiology portable irrigation operator already. The patient was admitted by the [employer] team to the ICU with BIS team as critical care consults. I assessed the patient at bedside in room number ED 8. No family member at bedside. The patient was intubated, unresponsive, on no sedation. Pupils were dilated at 5 mm, nonreactive to light, and no gag reflex. BI team we will continue monitoring patient closely. Plan and assessment are listed below. PAST MEDICAL HX: see above PAST SURGICAL HX: noncontributory SOCIAL HISTORY: No tobacco, ETOH, or illicit drug use Uncoded Allergies: FISH (Allergy, Intermediate, HIVES, 02/08/17) PEANUTS (Allergy, Intermediate, RASHES, HIVES, 02/08/17) REVIEW OF SYSTEMS: Unable to obtain ROS from patient due to patient is unresponsive and intubated. PHYSICAL EXAM: GENERAL: Intubated, unresponsive, on no sedation. HEENT: EOMI, Sclera non icteric, dry mucosa. NECK: Supple, no JVD, trachea midline LUNGS: Diminished breath sounds bilaterally. No wheezes HEART: Regular rate and rhythm. Normal S1 and S2, without murmurs ABD: Obese, rounded, soft, nontender. Bowel sounds present. Patient had multiple episodes of loose stool. EXT: No clubbing cyanosis or + edema NEURO: Unresponsive, intubated with no sedation. Vital Signs (last 8hr) Date Time Temp Pulse Resp B/P (MAP) Pulse Ox O2 Delivery O2 Flow Rate FiO2 07/25/25 02:59 96.6 85 24 93/58 98 Ventilator+ 100 07/25/25 01:46 79 100 07/25/25 00:24 94 100 07/24/25 23:44 97.9 113 12 236/33 96 Ventilator+ 100 LABS: Hematology Labs: Test 07/25/25 01:51 07/24/25 23:54 Range/Units White Blood Count 11.7 H 4.8-10.8 K/uL Red Blood Count 4.49 #L 4.50-6.20 MIL/uL Hemoglobin 13.6 #L 14.0-18.0 g/dL Hematocrit 43.6 # 42-54 % Mean Corpuscular Volume 97.1 79-99 fL Mean Corpuscular Hemoglobin 30.3 27.0-33.0 pg Mean Corpuscular Hemoglobin Concent 31.2 L 32.0-36.0 g/dL Red Cell Distribution Width 13.9 11.0-15.5 % Platelet Count 191 # 130-400 K/uL Mean Platelet Volume 10.3 7.5-10.5 fL Immature Granulocyte % (Auto) 3.1 H 0-1 % Neutrophils (%) (Auto) 56.4 40.0-77.0 % Lymphocytes (%) (Auto) 34.4 21.0-51.0 % Monocytes (%) (Auto) 4.3 3.0-13.0 % Eosinophils (%) (Auto) 0.9 0.0-8.0 % Basophils (%) (Auto) 0.9 0.0-5.0 % Neutrophils # (Auto) 6.6 1.8-7.7 K/uL Lymphocytes # (Auto) 4.0 1.0-4.8 K/uL Monocytes # (Auto) 0.5 0.1-1.0 K/uL Eosinophils # (Auto) 0.11 0.00-0.70 K/uL Basophils # (Auto) 0.10 0.00-0.20 K/uL Absolute Immature Granulocyte (auto 0.36 0-1 K/uL Nucleated Red Blood Cells 0.7 H 0.0-0.19 % Red Blood Cell Morphology See comments Chemistry Labs: Test 07/25/25 01:51 07/25/25 01:12 07/24/25 23:54 07/24/25 23:53 Range/Units Sodium Level 144 136-145 mmol/L Potassium Level 4.2 3.5-5.1 mmol/L Chloride Level 103 101-111 mmol/L Carbon Dioxide Level 16 L 21-32 mmol/L Blood Urea Nitrogen 33 H 7-18 mg/dL Creatinine 1.9 H 0.5-1.3 mg/dL Glomerular Filtration Rate Calc 41 >90 mL/min Random Glucose 332 H 70-105 mg/dL Total Calcium 9.6 # 8.5-10.1 mg/dL Total Bilirubin 0.7 # 0.2-1.0 mg/dL Aspartate Amino Transf (AST/SGOT) 253 H 10-37 U/L Alanine Aminotransferase (ALT/SGPT) 195 #H 12-78 U/L Alkaline Phosphatase 231 #H 50-136 U/L Total Protein 7.0 # 6.0-8.3 g/dL Albumin 2.3 #L 3.5-5.0 g/dL Troponin I High Sensitivity 1673 *H 4-75 ng/L Magnesium Level 2.50 H 1.80-2.40 mg/dL Total Creatine Kinase 210 # 21-232 U/L Whole Blood Glucose 317 #H 70-110 MG/DL DIAGNOSTICS / RADIOLOGY RESULTS: [ ] PLAN Admit to ICU under the [facility] hospitalist team with BIS team as critical care consults. Continue hypothermia protocol. Monitor respiratory status closely. Elevated head of bed. Reposition every 2 hours. Titrate ventilator to keep SpO2 equal to greater than 92% and according to ABGs. Continue epinephrine IV drip. Start Levophed IV drip. No sedation due to patient is unresponsive, pupils unreactive, no gag reflex. Albuterol and Atrovent nebulizer scheduled q.4 hours. Solu-Medrol 60 mg IV q.8 hours. Change Protonix IV to Pepcid IV. Start antibiotic therapy: Vancomycin IV and cefepime IV for empiric coverage Send stool for: C diff, cultures, WBCs, occult blood. Apply Rectal tube, oral tube, Ludwig catheter. Continue NS at 75 mL an hour. Artificial tears two drops OU q.6 hours. Mouth care with Precedex 15 mL q.6 hours. Cardiology was made aware of patient by ED physician. P.r.n. medications for pain management, fever, hypotension, nausea, vomiting. Glucometer checks a.c. and HS with insulin regular sliding scale coverage per pr otocol as needed. Vital signs per ICU. Reconcile home medications once available. Monitor renal and liver function. Monitor electrolytes and treat accordingly. A.m. labs. ABGs in a.m.. GI and DVT prophylaxis. Further plan/orders per hospitalization course and per admitting team. Full code per family request. Poor prognosis. NEURO: Minimize central acting medications as possible. Fall Precautions. Well lighted room through the day and minimize interruptions through the night to prevent acute delirium. PULMONARY: Supplemental 02 as needed Titrate Fio2 to keep Spo2 > or = 90% DuoNebs and CPT as needed IS hourly while awake for pulmonary hygiene Out of bed to chair as tolerated VAP Bundle CARDIOVASCULAR: Follow hemodynamics. Titrate vasopressor to keep MAP >65 or systolic blood pressure >95mmHg GI & NUTRITION: Continue nutritional support Aspirations precautions Prokinetic agents and laxatives as needed KIDNEYS & ELECTROLYTES: Strict monitoring of intake and output Daily weights Avoid nephrotoxic agents Monitor electrolytes and replace as needed Goal urine output of 30mL/hr or 0.5mL/kg/hr ENDOCRINE: Maintain blood glucose between 100-180 at all times. Insulin sliding scale for blood glucose management INFECTIOUS DISEASE: Trend temperature. Wynne-culture if febrile. HEMATOLOGY & COAGULATION: Monitor H&H. Keep Hgb > 7 Transfuse 1 unit of PRBC for Hgb < 7 Transfuse 1 pack of platelets of platelets < 20, 000 Watch for any signs and symptoms of bleeding SKIN: Pressure ulcer prevention per facility protocol Rehab: PT/OT Code Status: Full Resuscitation Disposition: [Admit to ICU] Other: Total patient critical care time exceeds 60 minutes excluding all procedures. Due to a high probability for clinically significant, life-threatening deterioration, the patient required my highest level of preparedness to interv yash emergently, and I personally spent 60 minutes of critical care time directly and personally managing the patient. I devoted my full attention to the patient during this time, which is separate from time spent on any billable procedures. This includes time spent involved in work directly related to the care of the patient: such as review of prior records, development of treatment plan nursing, discussions with ER provider, evaluation of patient's response to treatment, examination of patient, obtaining history from staff, ordering and performing treatments and interventions, ordering and review of laboratory studies, ordering and review of radiographic studies, pulse oximetry and re-evaluation of patient's condition, discussions with the family members and the patient, and any required documentation. This critical care time was performed to assess and manage the high probability of imminent life-threatening deterioration that could result in multi-organ failure. ATTESTATION BY PHYSICIAN I reviewed the documentation, medical decision making, and treatment plan as noted by the mid-level provider above. I agree with the findings and plan of care. Simón Huitron MD, [employer] Jul 25, 2025 03:23 SIMÓN HUITRON MD Jul 27, 2025 13:50
[2025-07-25] MEDS ORDERED: ARTIFICAL TEARS SOL 15 ML OU SCH (04:00)
[2025-07-25] MEDS ORDERED: VASOpressin 20 UNITS/ML 1ML Vi 40 UNITS in 0.9%NACL 50ML 40 ML IV SCH (04:00)
[2025-07-25] MEDS ORDERED: DEXTROSE 50%-WATER 50 ML DISP.SYRIN IV PRN (04:30)
[2025-07-25] MEDS ORDERED: GLUCAGON 1MG KIT 1 MG ML IM PRN (04:30)
[2025-07-25] MEDS ORDERED: MAGNESIUM 2GM PREMIX 50ML 50 ML IV PRN (04:30)
--- NOTE | 2025-07-25 04:59 | NUR ---
PATIENT HAS HAD NUMEROUS LOOSE, WATERY STOOLS, CLEANED NUMEROUS TIMES, RECTAL TUBE INSERTED, STILL SOME LEAKAGE AROUND TUBE, REPOSITIONED X 2 AND CLEAN PADS PLACED BENEATH PATIENT.
[2025-07-25 05:13] LABS: SARS-CoV-2, RNA, NAAT NEGATIVE SARS CoV-2 (NEGATIVE)
[2025-07-25 05:14] LABS: INFLUENZA TYPE A Negative For Type A (NEGATIVE); INFLUENZA TYPE B Negative For Type B (NEGATIVE)
[2025-07-25] MEDS: NOREPINEPHRIN 4MG/NS 250ML 250 ML IV SCH (05:16)
--- NOTE | 2025-07-25 05:40 | NUR ---
TROPONIN LEVEL OF 18,194 REPORTED TO PRIMARY NURSE SHIELA ALONSO.
[2025-07-25 05:50] LABS: IMMATURE GRANULOCYTE ABSOLUTE 0.07 K/uL (0-1); NUCLEATED RED BLOOD CELLS 0.5 % (0.0-0.19); PLATELET COUNT (AUTO) 270 K/uL (130-400); RED BLOOD CELL COUNT(AUTO) 4.06 MIL/uL (4.50-6.20); RED CELL DISTRIBUTION WIDTH 14.1 % (11.0-15.5); WHITE BLOOD COUNT (AUTO) 7.5 K/uL (4.8-10.8)
--- NOTE | 2025-07-25 06:09 | EKG ---
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
[2025-07-25 06:59] LABS: ASPARTATE AMINOTRANSFERASE 335.0 U/L (10-37); CREATININE 2.5 mg/dL (0.5-1.3); GLOMERULAR FILTR. RATE CALC 29.0 mL/min (>90); SODIUM SERUM 140.0 mmol/L (136-145); TOTAL PROTEIN, SERUM 7.1 g/dL (6.0-8.3); UREA NITROGEN, BLOOD 42.0 mg/dL (7-18)
[2025-07-25 07:04] LABS: CREATINE KINASE, TOTAL 810.0 U/L (21-232); GLUCOSE,RANDOM 436.0 mg/dL (70-105)
[2025-07-25] MEDS ORDERED: IOHEXOL 350 MG/ML 100ML INFUS..BTL IV ONE (07:13)
[2025-07-25] MEDS: CHLORHEXIDINE GLUCONATE 15 ML MOUTHWASH MM SCH (08:34)
[2025-07-25] MEDS: ARTIFICAL TEARS SOL 15 ML OU SCH (08:35)
[2025-07-25] MEDS: NOREPINEPHRINE 16MG/NS 250ML PREMIX IV SCH (08:42)
[2025-07-25] MEDS: VASOpressin 20 UNITS/ML 1ML Vi 40 UNITS in 0.9%NACL 50ML 40 ML IV SCH (09:06)
--- NOTE | 2025-07-25 09:50 | HMCIMG ---
Exam: NONCONTRAST CT BRAIN REASON: neurological defecit. COMPARISON: None. TECHNIQUE: Images are obtained from vertex to the skull base. The exam was performed without IV contrast. FINDINGS: There is there is severe intracranial edema with effacement of sulci and gyri. Both ventricles are obscure. There is obliteration of quadrigeminal plate suggesting of herniation. Ventricles and sulci appear normal. Posterior fossa and brainstem structures are unremarkable. Paranasal sinuses and remaining extracranial soft tissues appear normal as well.There is mucoperiosteal thickening of both maxillary air cell. There is air-fluid level in the sphenoid and ethmoid air cell suggesting of sinusitis. The frontal air cells are well aerated. IMPRESSION: 1. Severe cerebral edema with elevation of the ventricles sulci and gyri with suggestion of possible herniation with obliteration of the quadrigeminal plate. 2. Bilateral maxillary sphenoid and ethmoid air cell sinusitis. CT was performed with one or more following dose reduction techniques: automated exposure control, adjustment of the mA and kv according to patient's size, or use of a iterative reconstruction technique.
--- NOTE | 2025-07-25 09:57 | NUR ---
PER RADIOLOGIST DR PARKINSON, NURSE WAS CALLED IN REGARDS TO CT REPORT.
--- NOTE | 2025-07-25 09:57 | HMCIMG ---
CT CHEST PE PROTOCOL [facility] CONT REASON: neurological defecit TECHNIQUE: Thin axial images through the chest were obtained during bolus intravenous administration of 100 ml of Omnipaque 350. Sagittal and coronal reconstruction images were performed. FINDINGS: The main pulmonary arteries and their first and second order branches have normal caliber and enhancement throughout. No intraluminal filling defect is identified. Thoracic aorta is unremarkable. Heart is mildly enlarged. There is no evidence of any pericardial effusion.. No pleural or pericardial effusion is identified. Lungs demonstrated bibasilar atelectasis or consolidation posterior basal segment, this is more pronounced in the left as compared to the right.. No pneumothorax is noted. There is no mediastinal or axillary lymphadenopathy. Limited evaluation of the upper abdomen is unremarkable. The support lines including endotracheal tube and nasogastric tube are in satisfactory position. The study is limited due to poor inspiratory radiograph IMPRESSION: No evidence of pulmonary embolism or aortic dissection. Bibasilar atelectasis and consolidation in both lower lung posterior basal segment. CT was performed with one or more following dose reduction techniques: automated exposure control, adjustment of the mA and kv according to patient's size, or use of a iterative reconstruction technique.
[2025-07-25 10:00] LABS: ABG BASE EXCESS -13.1 mmol/L (-2.0-3.0); ABG HCO3 14.8 mmol/L (21.0-28.0); ABG OXYGEN SATURATION 84.9 % (94.0-98.0); ABG PCO2 41 mmHg (35-48); ABG PH 7.174 (7.350-7.450); CARBON MONOXIDE 0.4 % (0.5-1.5); PO2, ARTERIAL BG 55.4 mmHg (83.0-108.0); TEMPERATURE, CELSIUS BG 37.0 CELSIUS (35.5-37.0); VENT MODE, BG ACVC (ROOM AIR)
--- NOTE | 2025-07-25 10:02 | HMCIMG ---
CT ABDOMEN/PELVIS W/CONTRAST HISTORY: neurological defecit. COMPARISON: None. TECHNIQUE: Sequential axial images through abdomen and pelvis were performed. Patient was given 100 mL of Omnipaque IV. Coronal and sagittal reformats were obtained. FINDINGS: Lung bases: There is bibasilar basilar airspace consolidation Liver: Normal size and enhancement throughout. Portal vein: Patent. Gallbladder: The gallbladder appears to be surgically absent.. Spleen: Normal. Kidneys: Normal size and shape. Adrenal glands: Normal Pancreas: Unremarkable. Stomach and small bowel: Stomach and small bowels are very distended air-filled suggesting of adynamic ileus. The colon is also distended and fluid-filled.. There is a nasogastric tube with the tip in the stomach. Colon: Colon is distended with liquid stool.. Appendix: Normal. Bladder: Partially distended and unremarkable there is a Ludwig catheter in place.. Reproductive system: The prostate and seminal vesicle appears to be normal.. Abdominal aorta: Normal caliber. Skeletal: No acute abnormality. Vasculature patient has bilateral iliac vein stents in place. The aorta and iliac arteries demonstrate no evidence of aneurysmal dilatation. There is occasional atherosclerotic change of the abdominal aorta with calcified plaque. IMPRESSION: Very distended stomach small and large bowel with fluid-filled suggesting of adynamic ileus. Bibasilar airspace consolidation Nasogastric tube with the tip in the stomach in satisfactory position
[2025-07-25] MEDS: SODIUM BICARB 50MEQ 50ML VIAL IV ONE (10:23)
[2025-07-25] MEDS ORDERED: VANCOMYCIN PROTOCOL PER PHARMACY IV SCH (11:00)
--- NOTE | 2025-07-25 11:32 | CONS ---
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 08/2020, normal coronaries via angiogram in 2017, normal Lexiscan Cardiolite with a dilated left ventricle and an EF of 39% on 05/23/2024, 2D Echo with mild nonischemic cardiomyopathy with an EF of 40-45% in 08/2020, improved LVEF of 50% with grade 1 diastolic dysfunction and global strain of 9.9% by Echo on 05/29/2024, venous insufficiency s/p ablation to bilateral GSV's 07/2022, s/p right common iliac, external iliac, and femoral vein stent placement 12/2022, s/p angioplasty and stent to the left common iliac, external iliac and common femoral vein with a 16 mm x 150 mm Medtronic venous self expanding stent on 09/16/2024, and BPH , the patient has a recent admission to 07/22/2025 for chest pain and hypertensive urgency and was discharged yesterday, at that time cardiac enzymes are negative x2, ECG was nonischemic, underwent 2D echocardiogram showed LVEF 50-55%, with no wall motion or abnormalities. As per daughter patient was doing fine initially at home when she left him patient was in bed and when she came back the patient was unresponsive and still in bed.As per daughter patient had no pulse and was not breathing so she did CPR and ambulance was called,as per daughter she did not know what happened and how long has he been pulseless but he was still warm she said. On arrival in the emergency department initial rhythm was asystole initiated chest compressions, he achieved ROSC , orally intubated and on Epinephrine drip and hypothermic protocol initiated by ED, patient underwent CT scan of the brain that showed Severe cerebral edema with elevation of the ventricles sulci and gyri with suggestion of possible herniation with obliteration of the quadrigeminal plate. is concerning for anoxic ischemic brain injury , ] Past Medical History: [ Refer to chart] Past Surgical History: [Refer to HPI ] Family History: [ Refer to HPI] Social History: [ Refer to HPI] Habits: [Never] smoker. [Denies] alcohol consumption. [Denies] illicit drug use Review of Systems: A review of12 point system was negative set per HPI Physical Examination: GENERAL: [Intubated, sedated.] HEAD: [Normal with no signs of head trauma.] EYES: [Fixed pupils, nonreactive, gag reflex absent.] ENT: [Hearing grossly intact, normal oropharynx.] NECK: [Supple without JVD. There is no tenderness, lymphadenopathy, or masses. No thyromegaly. Normal carotid upstrokes without bruits.] LUNGS: [Clear breath sounds bilaterally. No wheezes, or rhonchi.] HEART: [Normal rate and rhythm. Normal S1 and S2 without mumurs, gallop or rub.] VASC: [Peripheral pulses +2 bilaterally.] ABD: [Bowel sounds normal, soft, nontender, no masses, no organomegaly. No audible bruits.] : [Not examined] LYMPH: [No lymphadenopathy noted.] EXT: [No clubbing, cyanosis or edema.] SKIN: [No rashes or lesions noted.] NEURO: [Intubated, sedated.] Vital Signs (last 8hr) Date Time Temp Pulse Resp B/P (MAP) Pulse Ox O2 Delivery O2 Flow Rate FiO2 07/25/25 11:00 79 24 85/38 (54) 82 76/41 (53) 07/25/25 10:57 86 24 07/25/25 10:45 86 24 106/48 (67) 90 93/51 (65) 07/25/25 10:30 97 24 130/53 (78) 93 116/84 (95) 07/25/25 10:18 83 100 07/25/25 10:15 95 24 115/53 (73) 92 104/65 (78) 07/25/25 10:00 97 24 120/55 (76) 93 108/63 (78) 07/25/25 09:45 97 24 123/55 (77) 91 102/69 (80) 07/25/25 09:30 94 24 117/50 (72) 90 100/60 (73) 07/25/25 09:15 100 24 110/47 (68) 86 99/57 (71) 07/25/25 09:06 106/45 07/25/25 09:00 74 24 66/26 (39) 80 100 70/40 (50) 07/25/25 09:00 91 Ventilator+ 100 07/25/25 08:45 87 24 93/39 (57) 83 78/46 (57) 07/25/25 08:42 89/38 07/25/25 08:30 82 24 94/40 (58) 88 85/51 (62) 07/25/25 08:23 83 100 07/25/25 08:15 82 24 94/40 (58) 86 07/25/25 08:00 85 24 96/42 (60) 89 100 07/25/25 07:00 93.6 87 33 107/53 96 Ventilator+ 100 07/25/25 06:22 85 24 07/25/25 06:21 84 100 07/25/25 05:16 89/50 07/25/25 04:56 96.4 88 25 84/49 97 Ventilator+ 100 07/25/25 04:05 95.5 88 24 94/50 97 Ventilator+ 100 07/25/25 03:30 85 24 120/71 99 Ventilator+ 100 Laboratory: [ ] Hematology Labs: Test 07/25/25 05:40 07/24/25 23:54 Range/Units White Blood Count 7.5 # 4.8-10.8 K/uL Red Blood Count 4.06 L 4.50-6.20 MIL/uL Hemoglobin 12.5 L 14.0-18.0 g/dL Hematocrit 39.9 L 42-54 % Mean Corpuscular Volume 98.3 79-99 fL Mean Corpuscular Hemoglobin 30.8 27.0-33.0 pg Mean Corpuscular Hemoglobin Concent 31.3 L 32.0-36.0 g/dL Red Cell Distribution Width 14.1 11.0-15.5 % Platelet Count 270 # 130-400 K/uL Mean Platelet Volume 9.9 7.5-10.5 fL Immature Granulocyte % (Auto) 0.9 0-1 % Neutrophils (%) (Auto) 71.1 40.0-77.0 % Lymphocytes (%) (Auto) 20.1 L 21.0-51.0 % Monocytes (%) (Auto) 7.1 3.0-13.0 % Eosinophils (%) (Auto) 0.4 0.0-8.0 % Basophils (%) (Auto) 0.4 0.0-5.0 % Neutrophils # (Auto) 5.3 1.8-7.7 K/uL Lymphocytes # (Auto) 1.5 1.0-4.8 K/uL Monocytes # (Auto) 0.5 0.1-1.0 K/uL Eosinophils # (Auto) 0.03 0.00-0.70 K/uL Basophils # (Auto) 0.03 0.00-0.20 K/uL Absolute Immature Granulocyte (auto 0.07 0-1 K/uL Nucleated Red Blood Cells 0.5 H 0.0-0.19 % Red Blood Cell Morphology See comments Chemistry Labs: Test 07/25/25 08:39 07/25/25 05:40 Range/Units Whole Blood Glucose 375 H 70-110 MG/DL Sodium Level 140 136-145 mmol/L Potassium Level 3.3 L 3.5-5.1 mmol/L Chloride Level 102 101-111 mmol/L Carbon Dioxide Level 18 L 21-32 mmol/L Blood Urea Nitrogen 42 H 7-18 mg/dL Creatinine 2.5 H 0.5-1.3 mg/dL Glomerular Filtration Rate Calc 29 >90 mL/min Random Glucose 436 *H 70-105 mg/dL Total Calcium 8.6 8.5-10.1 mg/dL Magnesium Level 2.70 H 1.80-2.40 mg/dL Total Bilirubin 1.1 #H 0.2-1.0 mg/dL Aspartate Amino Transf (AST/SGOT) 335 H 10-37 U/L Alanine Aminotransferase (ALT/SGPT) 212 H 12-78 U/L Alkaline Phosphatase 237 H 50-136 U/L Total Creatine Kinase 810 #*H 21-232 U/L Troponin I High Sensitivity 57810 *H 4-75 ng/L B-Type Natriuretic Peptide 164 H 0-100 pg/mL Total Protein 7.1 6.0-8.3 g/dL Albumin 2.4 L 3.5-5.0 g/dL Diagnostics / Radiology: [Copy/Paste Echos/Imaging Report here] Assessment: Normal coronaries via angiogram in 2017 Normal Lexiscan Cardiolite with a dilated left ventricle and an EF of 39% on 05/23/2024 Mild nonischemic cardiomyopathy with an EF of 40-45% in 08/2020 with improved LVEF of 50% with grade 1 diastolic dysfunction and global strain of 9.9% by Echo on 05/29/2024 Hypertension Dyslipidemia Diabetes mellitus type 2 CVA status post TPA infusion with residual right sided weakness 08/2020 Venous insufficiency -s/p ablation to bilateral GSV's 07/2022 -s/p right common iliac, external iliac, and femoral vein stent placement 12/2022 -s/p angioplasty and stent to the left common iliac, external iliac and common femoral vein with a 16 mm x 150 mm Medtronic venous self expanding stent on 09/16/2024 BPH ] Plan: [ #[id number] cardiac arrest Patient has a reason admission 07/22/2025 due to hypertensive urgency and bronchitis That time the patient was endorsing back pain that extended to his anterior chest area ECG was nonischemic, troponins were negative, 2D echo cardiogram showed a preserved systolic function Today morning, the patient's daughter found the patient unresponsive, pulseless, and performed CPR Patient has been brought in by EMS on arrival in the emergency department initial rhythm was asystole initiated chest compressions, he achieved ROSC Orally intubated and on Epinephrine drip and hypothermic protocol initiated by ED Patient underwent CT scan of the brain that showed Severe cerebral edema with elevation of the ventricles sulci and gyri with suggestion of possible herniation with obliteration of the quadrigeminal plate. is concerning for anoxic ischemic brain injury Patient continued to be intubated, sedated, on pressor support On examination patient has a fixed the people, nonreactive, with absent gag reflex We will recommend goals of care discussion, and palliative consultation There are no plans for any invasive cardiac procedures Very poor prognosis Thank you for this consult cardiology will continue to follow along Lio dowd MD ] ATTESTATION BY PHYSICIAN I have seen and examined the patient, reviewed the above documentation, participated in medical decision making, made necessary modifications, and agree with the treatment plan as documented by my mid-level provider above. MD ROBINSON Sterling JAMES R MD Jul 25, 2025 11:32
[2025-07-25] MEDS: VANCOMYCIN 2GM/500 ML BAG 500 ML IV ONE (11:57)
[2025-07-25] MEDS ORDERED: COMPOUND IV REFRIGERATED 1 EACH IVSOLN MISC PRN (12:00)
[2025-07-25] MEDS ORDERED: COMPOUND IV MISC 1 EACH IVSOLN MISC PRN (12:00)
--- NOTE | 2025-07-25 12:07 | PN ---
[facility] PROGRESS NOTE Date Patient Seen: Jul 25, 2025 Time of Visit: 12:[address] Quique Nichols Primary Care Physician: Attending team: [employer] hospitalist team Outpatient Specialists: Inpatient Consults: BIS, Critical Care team Cardiology PROBLEM LIST: Status post cardiac arrest , downtime approximate 1 hour Anoxic brain injury Cardiogenic shock Aspiration PNA Acute hypoxic and hypercapnic respiratory failure Severe acute metabolic acidosis Severe lactic acidosis Electrolyte derangement (hypernatremia, hypercalcemia, hypomagnesemia) Anemia of chronic disease POA Uncontrolled Diabetes POA Transaminitis POA Severe protein calorie malnutrition/hypoalbuminemia POA Morbid obesity POA, BMI 43.6 INTERVAL HISTORY: The patient is a morbidly obese male with BMI 43, a history of very poor medical compliance with obesity, DM and HEMANT treatment who was admitted with a cardiac arrest from overnight, discussion with family members the downtime appears to be close to an hour, family found him and he was been in his room and down for an unknown time. Family attempted CPR prior to EMS presentation. Patient currently maxed on epi and levo and vaso was added earlier this morning. Patient on a ventilator in 100% FiO2, poor ventilation His potassium is 2.5 in his being replaced. He has numerous electrolyte abnormalities, he is severely acidotic, receiving bicarb, initial pH was 6.7 has improved to 7.1 His lactic was 15 on presentation downtrending 4.18 Patient has no reflexes, no cough gag no stimulus, no corneal, 100% dependent on the vent and pressors to maintain maps Lengthy discussion with patient's daughter, son-in-law and the patient's sister at bedside. They have been updated to the critical condition of the patient. Head CT reveals severe anoxic brain injury His CTA did not reveal any PE or dissections There is evidence of bilateral aspiration PNA at the bases on CT chest. Plan: Pastoral Services have been contacted, family members are getting together talk about future decision making Daughter is the power of divorce attorney and wants to proceed with withdrawal of life support. We will continue with pressors, vent management until family proceeds with withdrawal of care Correction of electrolyte abnormalities And addressing patient's metabolic acidosis Patient critically ill, likely anoxic brain injury. Total critical care time 78 minutes, this time excludes any procedures performed or times her with education Discussion with specialties REVIEW OF SYSTEMS: Unable to obtain ROS from patient due to patient is unresponsive and intubated. PHYSICAL EXAM: GENERAL: Intubated, unresponsive, on no sedation. HEENT: EOMI, Sclera non icteric, dry mucosa. NECK: Supple, no JVD, trachea midline LUNGS: Diminished breath sounds bilaterally. No wheezes HEART: Regular rate and rhythm. Normal S1 and S2, without murmurs ABD: Obese, rounded, soft, nontender. Bowel sounds present. Patient had multiple episodes of loose stool. EXT: No clubbing cyanosis or + edema NEURO: Unresponsive, intubated with no sedation. Vital Signs (last 8hr) Date Time Temp Pulse Resp B/P (MAP) Pulse Ox O2 Delivery O2 Flow Rate FiO2 07/25/25 11:00 79 24 85/38 (54) 82 76/41 (53) 07/25/25 10:57 86 24 07/25/25 10:45 86 24 106/48 (67) 90 93/51 (65) 07/25/25 10:30 97 24 130/53 (78) 93 116/84 (95) 07/25/25 10:18 83 100 07/25/25 10:15 95 24 115/53 (73) 92 104/65 (78) 07/25/25 10:00 97 24 120/55 (76) 93 108/63 (78) 07/25/25 09:45 97 24 123/55 (77) 91 102/69 (80) 07/25/25 09:30 94 24 117/50 (72) 90 100/60 (73) 07/25/25 09:15 100 24 110/47 (68) 86 99/57 (71) 07/25/25 09:06 106/45 07/25/25 09:00 74 24 66/26 (39) 80 100 70/40 (50) 07/25/25 09:00 91 Ventilator+ 100 07/25/25 08:45 87 24 93/39 (57) 83 78/46 (57) 07/25/25 08:42 89/38 07/25/25 08:30 82 24 94/40 (58) 88 85/51 (62) 07/25/25 08:23 83 100 07/25/25 08:15 82 24 94/40 (58) 86 07/25/25 08:00 85 24 96/42 (60) 89 100 07/25/25 07:00 93.6 87 33 107/53 96 Ventilator+ 100 07/25/25 06:22 85 24 07/25/25 06:21 84 100 07/25/25 05:16 89/50 07/25/25 04:56 96.4 88 25 84/49 97 Ventilator+ 100 07/25/25 04:05 95.5 88 24 94/50 97 Ventilator+ 100 LABS: Hematology Labs: Test 07/25/25 05:40 07/24/25 23:54 Range/Units White Blood Count 7.5 # 4.8-10.8 K/uL Red Blood Count 4.06 L 4.50-6.20 MIL/uL Hemoglobin 12.5 L 14.0-18.0 g/dL Hematocrit 39.9 L 42-54 % Mean Corpuscular Volume 98.3 79-99 fL Mean Corpuscular Hemoglobin 30.8 27.0-33.0 pg Mean Corpuscular Hemoglobin Concent 31.3 L 32.0-36.0 g/dL Red Cell Distribution Width 14.1 11.0-15.5 % Platelet Count 270 # 130-400 K/uL Mean Platelet Volume 9.9 7.5-10.5 fL Immature Granulocyte % (Auto) 0.9 0-1 % Neutrophils (%) (Auto) 71.1 40.0-77.0 % Lymphocytes (%) (Auto) 20.1 L 21.0-51.0 % Monocytes (%) (Auto) 7.1 3.0-13.0 % Eosinophils (%) (Auto) 0.4 0.0-8.0 % Basophils (%) (Auto) 0.4 0.0-5.0 % Neutrophils # (Auto) 5.3 1.8-7.7 K/uL Lymphocytes # (Auto) 1.5 1.0-4.8 K/uL Monocytes # (Auto) 0.5 0.1-1.0 K/uL Eosinophils # (Auto) 0.03 0.00-0.70 K/uL Basophils # (Auto) 0.03 0.00-0.20 K/uL Absolute Immature Granulocyte (auto 0.07 0-1 K/uL Nucleated Red Blood Cells 0.5 H 0.0-0.19 % Red Blood Cell Morphology See comments Chemistry Labs: Test 07/25/25 08:39 07/25/25 05:40 Range/Units Whole Blood Glucose 375 H 70-110 MG/DL Sodium Level 140 136-145 mmol/L Potassium Level 3.3 L 3.5-5.1 mmol/L Chloride Level 102 101-111 mmol/L Carbon Dioxide Level 18 L 21-32 mmol/L Blood Urea Nitrogen 42 H 7-18 mg/dL Creatinine 2.5 H 0.5-1.3 mg/dL Glomerular Filtration Rate Calc 29 >90 mL/min Random Glucose 436 *H 70-105 mg/dL Total Calcium 8.6 8.5-10.1 mg/dL Magnesium Level 2.70 H 1.80-2.40 mg/dL Total Bilirubin 1.1 #H 0.2-1.0 mg/dL Aspartate Amino Transf (AST/SGOT) 335 H 10-37 U/L Alanine Aminotransferase (ALT/SGPT) 212 H 12-78 U/L Alkaline Phosphatase 237 H 50-136 U/L Total Creatine Kinase 810 #*H 21-232 U/L Troponin I High Sensitivity 06319 *H 4-75 ng/L B-Type Natriuretic Peptide 164 H 0-100 pg/mL Total Protein 7.1 6.0-8.3 g/dL Albumin 2.4 L 3.5-5.0 g/dL DIAGNOSTICS / RADIOLOGY RESULTS: [ ] PLAN NEURO: Minimize central acting medications as possible. Fall Precautions. Well lighted room through the day and minimize interruptions through the night to prevent acute delirium. PULMONARY: Supplemental 02 as needed Titrate Fio2 to keep Spo2 > or = 90% DuoNebs and CPT as needed IS hourly while awake for pulmonary hygiene Out of bed to chair as tolerated VAP Bundle CARDIOVASCULAR: Follow hemodynamics. Titrate vasopressor to keep MAP >65 or systolic blood pressure >95mmHg GI & NUTRITION: Continue nutritional support Aspirations precautions Prokinetic agents and laxatives as needed KIDNEYS & ELECTROLYTES: Strict monitoring of intake and output Daily weights Avoid nephrotoxic agents Monitor electrolytes and replace as needed Goal urine output of 30mL/hr or 0.5mL/kg/hr ENDOCRINE: Maintain blood glucose between 100-180 at all times. Insulin sliding scale for blood glucose management INFECTIOUS DISEASE: Trend temperature. Wynne-culture if febrile. HEMATOLOGY & COAGULATION: Monitor H&H. Keep Hgb > 7 Transfuse 1 unit of PRBC for Hgb < 7 Transfuse 1 pack of platelets of platelets < 20, 000 Watch for any signs and symptoms of bleeding SKIN: Pressure ulcer prevention per facility protocol Rehab: PT/OT Code Status: Full Resuscitation Disposition: [Admit to ICU] CLEMENT HUBBARD Jul 25, 2025 12:07 QUIQUE NICHOLS MD Jul 27, 2025 13:58
--- NOTE | 2025-07-25 13:45 | NUR ---
DNR/WITHDRAWAL OF LIFE SUPPORT DR. NICHOLS SPOKE WITH PT'S DAUGHTER GITA VICTOR AND FAMILY MEMBERS WHO ARE AT BEDSIDE REGARDING CT HEAD RESULTS. FAMILY IN AGREEMENT TO SIGN DNR FOR AND WITHDRAWAL OF LIFE SUPPORT. FORMS PROVIDED BY RN AND SIGNED BY DESIGNATED FAMILY MEMBERS.
--- NOTE | 2025-07-25 14:15 | NUR ---
NADYA COVINGTON REFERRAL #[id number].
--- NOTE | 2025-07-25 15:40 | NUR ---
WITHDRAWAL OF LIFE SUPPORT PT EXTUBATED BYRT, PLACED ON 2L N/C. CARDIAC DRIPS TURNED OFF BY RN. FAMILY MEMBERS ALLOWED AT BEDSIDE AFTER EXTUBATION.
[2025-07-25] MEDS ORDERED: ATROPINE 1MG SYG IVP ONE (15:59)
--- NOTE | 2025-07-25 17:36 | HMCSR ---
APPROVED REPORT EXAM: Two-dimensional and M-mode echocardiogram with Doppler and color Doppler. INDICATION ICD: s/p cardiac arrest 2D Dimensions RVDd3.1 cmLVEF(%)44.7 (>50%)LVED Vol(simp.)127.0 mL IVSd1.5 (0.7-1.1cm)FS(%)22 %LVES Vol(simp.)53.0 mL LVDd3.7 (3.8-5.6cm)LA (2D)4.2 (1.6-4.0cm)LVEF(%, simp.)41 % PWd1.7 (0.7-1.1cm)Ao Root(2D)2.9 (2.0-3.7cm) LVDs2.9 (2.5-4.0cm)LVOT diam2.2 (1.8-2.4cm) Aortic Valve AoV Vmax1.6 m/Akira Peak GR10.7 mmHgLVOT Vmax1.2 m/s AoV VTI0.2 mAo Mean GR6.4 mmHgLVOT VTI0.14 m JOSE (VMAX)2.83 cm2AVA (VTI) 2.4 cm2 Mitral Valve MV E Vmax65.8 cm/sDECEL Rriq762 ms MV A Vmax56.9 cm/sP 1/2 T77 ms E/A ratio1.2MVA (PHT)2.9 cm2 TDI E/E' Kcdxyj30.9E/E' Pzzsuwq84.2 Medial E' Peak V4.73 cm/sLateral E' Peak V6.47 cm/s Pulmonary Valve PV Vmax1.1 m/sPV VTI0.17 mPV Mean GR2.8 mmHg PV Peak GR5.0 mmHg Left Ventricle The left ventricle is normal size. There is normal LV segmental wall motion. Severe left ventricular hypertrophy. LVEF is 60-65%. Increased E/E suggestive of increased left ventricular end diastolic pr essure. Right Ventricle The right ventricle is normal size. The right ventricular systolic function is normal. Atria The left atrium size is normal. The right atrium size is normal. Aortic Valve The aortic valve is normal in structure. No aortic regurgitation is present. There is no aortic valvu lar stenosis. Mitral Valve The mitral valve is normal in structure. There is trace mitral valve regurgitation noted. There is no mitral valve stenosis. Tricuspid Valve The tricuspid valve is normal in structure and function. There is trace tricuspid valve regurgitation noted. Pulmonic Valve Pulmonic valve is not well visualized. There is no pulmonic valvular regurgitation. Great Vessels The aortic root is normal in size. The IVC was not visualized. Pericardium There is no pericardial effusion. Other Information Quality : Fair Conclusion The left ventricle is normal size.LVEF is 60-65% with normal LV segmental wall motion. Severe left ventricular hypertrophy. Increased E/E suggestive of increased left ventricular end sandoval tolic pressure. The right ventricular systolic function is normal. Both atria are normal in size. No hemodynamically significant valvular abnormalities observed. There is no pericardial effusion.
[2025-07-25] MEDS ORDERED: Solu-medROL 40MG VIAL IVP SCH (19:30)
--- NOTE | 2025-07-26 09:29 | DS ---
Discharge Summary Hospital Course Summary: Patient is 55-year-old male who was admitted after being found by family member unresponsive. CPR was started by the same family member and 911 was called. Resuscitative efforts continued for about an hour and the patient arrived in the emergency department here at [facility] during these efforts. There was return of circulation approximately 1 hour after the CPR started. Patient was intubated. He required full and maximal vasopressor support and was extremely acidotic upon presentation. CT scan was obtained which showed anoxic brain injury and cerebral edema. Critical care and pulmonary were consulted from the emergency department and provided assistance with his care. Patient was ventilator dependent pupils were fixed and dilated and he remained unresponsive. After a lengthy discussion with the family about his grave clinical state, they decided to withdraw care. Shortly thereafter the patient at approximately 4:00 p.m. in the afternoon. Pastoral care had been called and was with the family during this time. Building Maintenance Engineer(s): Pulmonary/critical care benchmark Procedure(s): intubation Assessment/Plan: ASSESSMENT: Acute VT POA S/P Cardiopulmonary arrest (unknown downtime ) POA Acute respiratory Failure orally intubated on mechanical ventilation POA Anemia POA Acute Kidney injury POA Uncontrolled Diabetes POA Transaminitis POA Severe protein malnutrition POA Morbid obesity POA Hypertension POA Hyperlipidemia PLAN: We will admit patient in ICU Keep patient nothing by mouth Continue epinephrine drip for BP support Continue hypothermia protocol We will start NS @ 75 ml/ hr x2 bags and re evaluate We will start on Protonix 40 mg IV daily for GI prophylaxis We will replace electrolytes as needed per protocol We will start on insulin sliding scale AC & HS with hypoglycemia protocol We will add prn medication for fever,pain,cough , nausea and vomiting We will reconcile home meds once medlist available We will trend troponin [id number] Cardiology central sterilization technician consulted Critical care consulted and pending recommendation Follow-up CT abdomen and pelvis with contrast, CT chest PE protocol with and without contrast, CT head brain without contrast, echo and abdominal ultrasound results We will request labs in am Further orders to follow depending on above results pt . Home Medications: Active Scripts Losartan Potassium (Losartan Potassium) 50 Mg Tablet, 1 TAB PO BID for 30 Days, #60 TAB 0 Refills Prov:MARTHA KAUFMAN MD 07/24/25 Doxycycline Hyclate (Doxycycline Hyclate) 100 Mg Tablet, 1 TAB PO BID for 10 Days, #20 TAB 0 Refills Prov:MARTHA KAUFMAN MD 07/24/25 Levofloxacin (Levofloxacin) 750 Mg Tablet, 1 TAB PO DAILY for 10 Days, #10 TAB 0 Refills Prov:MARTHA KAUFMAN MD 07/24/25 Pantoprazole Sodium (Protonix) 40 Mg Ectab, 40 MG PO DAILY for 30 Days, #30 TAB.EC Prov:JASPER NELSON AGACNJose Luis 11/14/23 Metoprolol Tartrate (Lopressor) 25 Mg Tab, 25 MG PO BID for 30 Days, #60 TAB 0 Refills Prov:MARIELENA AUSTIN MD 06/21/21 Reported Medications Insulin Degludec (Insulin Degludec Pen (U-100)) 100 Unit/Ml (3 Ml) Insuln.pen, 30 UNITS BID 07/22/25 Levothyroxine Sodium (Levothroid/Synthroid) 75 Mcg Tab, 1 TAB PO DAILY 07/22/25 Pravastatin Sodium (Pravastatin Sodium) 20 Mg Tablet, 1 TAB PO DAILY 07/22/25 Escitalopram Oxalate (Escitalopram Oxalate) 10 Mg Tablet, 1 TAB PO DAILY for 30 Days, #30 TAB 0 Refills 07/22/25 Empagliflozin (Jardiance) 25 Mg Tablet, 1 TAB PO DAILY 07/22/25 Famotidine (Famotidine) 40 Mg Tablet, 1 TAB PO DAILY 07/22/25 Topiramate (Topiramate) 50 Mg Tablet, 1 TAB PO BID 07/22/25 Sucralfate (Sucralfate) 1 Gram Tablet, 1 TAB PO BID 07/22/25 Furosemide (Furosemide) 20 Mg Tablet, 1 TAB PO DAILY 07/22/25 Isosorbide Mononitrate (Isosorbide Mononitrate ER) 30 Mg Tab.er.24h, 1 TAB PO DAILY 07/22/25 Glimepiride (Glimepiride) 4 Mg Tablet, 4 MG PO DAILYBKFST, TAB 11/09/23 Gabapentin (Gabapentin) 600 Mg Tablet, 600 MG PO HS, TAB 11/09/23 Aspirin (ASPIRIN 81 MG ECTAB) 81 Mg Ectab, 81 MG PO DAILY, TAB.EC 08/13/22 Clopidogrel Bisulfate (Clopidogrel) 75 Mg Tablet, 75 MG PO DAILY, TAB 09/04/20 Discontinued Reported Medications Semaglutide (Rybelsus) 3 Mg Tablet, 3 MG PO DAILY, TAB 11/09/23 Semaglutide (Ozempic) 0.25 Mg/0.368 Ml Pen.injctr, 0.5 MG SQ QWEEK 11/09/23 Insulin Detemir (Levemir) 100 Unit/Ml Vial, 20 UNIT SQ AM, VIAL 11/09/23 Meloxicam, Submicronized (Meloxicam) 5 Mg Capsule, 15 MG PO DAILY, CAP 11/09/23 Levothyroxine Sodium (Levothyroxine) 88 Mcg Capsule, 88 MCG PO AM, CAP 11/09/23 Metformin HCl (Metformin HCl) 1,000 Mg Tablet, 1000 MG PO BIDMEALS, TAB 09/04/20 Cholecalciferol (Vitamin D3) (Vitamin D3) 2,000 Unit Capsule, 2000 UNIT PO DAILY, CAP 06/17/19 Discontinued Scripts Amoxicillin/Potassium Clav (Amox Tr-K Clv 875-125 mg Tab) 875 Mg-125 Mg Tablet, 1 EACH PO BID for 5 Days, #10 TAB Prov:JASPER NELSON 11/14/23 Amlodipine Besylate (Amlodipine Besylate) 10 Mg Tablet, 10 MG PO DAILY for 30 Days, #30 TAB 0 Refills Prov:MARIELENA AUSTIN MD 06/21/21 Nitroglycerin (Nitrostat) 0.4 Mg Tab.subl, 0.4 MG SL [id number] MAX PRN for CHEST PAIN for 30 Days, #30 TAB.SL Prov:ASPEN BRAR Jr., MD 06/20/19 DIOMEDES MERINO MD Jul 26, 2025 09:29
[2025-07-26] MEDS ORDERED: VANCOMYCIN 1G/250ML KIT 250 ML IV SCH (12:00)
== END 2025-07-25 16:00 | DRG 137 ==
LOC: EDH 23:36 → EDBD 23:36 → EDHIP 23:37 → 2CV 07-25 07:29
PROVIDERS: ADMIT Internal Medicine; ATTEND Internal Medicine
PROC: 0BH17EZ Insertion of Endotracheal Airway into Trachea, Via Natural or Artificial Opening (ICD-10-PCS; principal; 2025-07-24)
PROC: 5A1935Z Respiratory Ventilation, Less than 24 Consecutive Hours (ICD-10-PCS; 2025-07-24)
PROC: 5A12012 Performance of Cardiac Output, Single, Manual (ICD-10-PCS; 2025-07-24)
DX: J69.0 Pneumonitis due to inhalation of food and vomit (principal); G93.6 Cerebral edema; I46.9 Cardiac arrest, cause unspecified; J96.01 Acute respiratory failure with hypoxia; J96.02 Acute respiratory failure with hypercapnia; R57.0 Cardiogenic shock; D63.8 Anemia in other chronic diseases classified elsewhere; E87.21 Acute metabolic acidosis; I21.4 Non-ST elevation (NSTEMI) myocardial infarction; G93.1 Anoxic brain damage, not elsewhere classified; N17.9 Acute kidney failure, unspecified; E43 Unspecified severe protein-calorie malnutrition; E87.0 Hyperosmolality and hypernatremia; E11.65 Type 2 diabetes mellitus with hyperglycemia; E66.01 Morbid (severe) obesity due to excess calories; E78.00 Pure hypercholesterolemia, unspecified; E83.42 Hypomagnesemia; E83.52 Hypercalcemia; E88.09 Other disorders of plasma-protein metabolism, not elsewhere classified; I10 Essential (primary) hypertension; I25.10 Atherosclerotic heart disease of native coronary artery without angina pectoris; N40.0 Benign prostatic hyperplasia without lower urinary tract symptoms; I25.5 Ischemic cardiomyopathy; I69.351 Hemiplegia and hemiparesis following cerebral infarction affecting right dominant side; Z82.49 Family history of ischemic heart disease and other diseases of the circulatory system; Z68.41 Body mass index [BMI] 40.0-44.9, adult; Z83.3 Family history of diabetes mellitus; Z90.49 Acquired absence of other specified parts of digestive tract; Z91.010 Allergy to peanuts; Z95.5 Presence of coronary angioplasty implant and graft; Z99.11 Dependence on respirator [ventilator] status; Z87.891 Personal history of nicotine dependence
CPT/HCPCS: 36415; 36600; 70450; 71045; 71270; 74177; 80053; 80305; 81001; 82435; 82550; 82803; 82947; 82948; 83605; 83735; 83880; 84132; 84295; 84484; 85018; 85025; 87635; 87804; 92950; 93005; 93306; 94002; 94640; 94664; 99285; J0169; J0461; J0692; J1815; J2405; J2470; J2919; J3490; J7030; J7050; Q9967; A9900; J3375